=== PATIENT | female | born 1945 | race Caucasian/White ===

== ENCOUNTER 2017-04-06 01:15 | Inpatient (IN) | payer OTHER ==
--- NOTE | 2017-04-06 01:26 | PDOC ---
History of Present Illness - General History Source: Patient Exam Limitations: No Limitations - History of Present Illness Initial Comments: 04/06/17 01:40 The patient is a 71 year old female with significant past medical history of hypertension who presents to the ED with right shoulder and arm pain and swelling s/p mechanical fall 2 weeks ago. Patient reports 2 weeks ago she had generalized weakness and subsequently fell down and sustained pain to the right shoulder. No LOC or head trauma. At that time she was able to move her right arm without difficulty. States she fell again 2 days ago and now she had worsening and increasing pain and swelling to the right shoulder and arm. No LOC or head trauma. Patient also has complaints of recent poor appetite. The patient denies fever, chills, cough, SOB, chest pain, and palpitations. The patient denies abdominal pain, nausea, vomiting, and diarrhea. Allergies: NKDA Social History: No alcohol, tobacco, or drug use reported. Past Surgical History: None reported PCP: Dr. Kerrie Cai <Felicia Oliveira - Last Filed: 04/06/17 03:03> - General History Source: Patient <Eddie Jasmine - Last Filed: 04/06/17 04:55> - General Stated Complaint: FALL Time Seen by Provider: 04/06/17 01:25 Past History <Felicia Oliveira - Last Filed: 04/06/17 03:03> <Eddie Jasmine - Last Filed: 04/06/17 04:55> - Past Medical History Allergies/Adverse Reactions: Allergies Allergy/AdvReac Type Severity Reaction Status Date / Time No Known Allergies Allergy Verified 04/06/17 01:40 Review of Systems - Review of Systems Able to Perform ROS?: Yes Comments:: 04/06/17 01:40 CONSTITUTIONAL: Absent: fever, no chills, no fatigue EYES: Absent: visual changes ENT: Absent: ear pain, no sore throat CARDIOVASCULAR: Absent: chest pain, no palpitations RESPIRATORY: Absent: cough, no SOB GI: Absent: abdominal pain, no nausea, no vomiting, no constipation, no diarrhea GENITOURINARY: Absent: dysuria, no frequency, no hematuria MUSCULOSKELETAL: +right shoulder and arm pain and swelling Absent: back pain SKIN: Absent: rash NEURO: Absent: headache <Felicia Oliveira - Last Filed: 04/06/17 03:03> *Physical Exam - Physical Exam Comments: 04/06/17 01:40 GENERAL: Well-appearing, well-nourished. No apparent distress. HEENT: Normocephalic, atraumatic. PERRL, EOM intact. CARDIOVASCULAR: Normal S1, S2. Regular rate and rhythm. PULMONARY: Clear to auscultation bilaterally. ABDOMEN: Soft, non-distended, non-tender. EXTREMITIES: Limited ROM of right arm secondary to pain. Ecchymotic from the top of the left shoulder down to the end of the humerus, moderate swelling and tenderness, no gross deformity. SKIN: Warm, dry. No rash NEUROLOGICAL: No focal neurological deficits. <Felicia Oliveira - Last Filed: 04/06/17 03:03> ED Treatment Course - LABORATORY CBC & Chemistry Diagram: 04/06/17 01:57 04/06/17 01:57 - RADIOLOGY Radiograph Interpretation: 04/06/17 03:03 EXAM: CT brain without contrast Reviewed by Imaging sporting goods salesperson: FINDINGS: Involutional changes. No hemorrhage. No mass. No visible acute infarct. Osseous structures are intact. <Felicia Oliveira - Last Filed: 04/06/17 03:03> - LABORATORY CBC & Chemistry Diagram: 04/06/17 01:57 04/06/17 01:57 <Eddie Jasmine - Last Filed: 04/06/17 04:55> Medical Decision Making - Medical Decision Making 04/06/17 04:54 Dr. Jasmine: The scribe's documentation has been prepared under my direction and personally reviewed by me in its entirery. I confirm that the note above accurately reflects all work, treatment, procedures, and medical decision making performed by me. Pt sustained a comminuted right humeral fracture. Pt to be admitted for ortho consultation. <Eddie Jasmine - Last Filed: 04/06/17 04:55> *DC/Admit/Observation/Transfer - Attestations Scribe Attestion: 04/06/17 01:41 Documentation prepared by Felicia Oliveira, acting as medical record coder for Eddie Jasmine MD/DO. <Felicia Oliveira - Last Filed: 04/06/17 03:03> - Discharge Dispostion Admit: Yes <Eddie Jasmine - Last Filed: 04/06/17 04:55> Diagnosis at time of Disposition: Elevated transaminase level Closed right humeral fracture Qualifiers: Encounter type: initial encounter Humerus Location: shaft Fracture alignment: displaced - Referrals Referrals: Kerrie Cai MD [Primary Care Provider] -
[2017-04-06] MEDS ORDERED: ONDANSETRON 4 MG/2 ML VIAL IVPUSH STA (01:32)
[2017-04-06] MEDS ORDERED: morphine CARPU-JECT 2 MG/1 ML DISP.SYRIN IVPUSH ONE ×2 (01:32→04:04)
[2017-04-06] MEDS ORDERED: SODIUM CHLORIDE 1,000 ML IV SCH ×2 (01:45→10:38)
[2017-04-06 02:01] VITALS: BMI 38.3
[2017-04-06 02:02] LABS: BASOPHIL 0.5 % (0-2.0); EOSINOPHIL 2.6 % (0-4.5); MCH 35.3 pg (25.7-33.7); MCHC 32.2 g/dl (32.0-36.0); MEAN CELL VOLUME 109.3 fl (80-96); MEAN PLT VOLUME 8.4 fl (7.5-11.1); PLATELET COUNT 167 K/MM3 (134-434); RDW 22.3 % (11.6-15.6); WHITE BLOOD COUNT 13.4 K/mm3 (4.0-10.0)
[2017-04-06 02:13] LABS: INR 1.32 (0.82-1.09); PROTHROMBIN TIME (PATIENT) 14.6 SEC (9.98-11.88)
[2017-04-06 02:30] LABS: ALBUMIN 2.4 g/dl (3.4-5.0); BILIRUBIN,TOTAL 2.5 mg/dL (0.2-1.0); CALCIUM 7.6 mg/dL (8.5-10.1); COCKROFT - GAULT 48.96; CREATININE 1.9 mg/dL (0.55-1.02); TOT PROT 5.8 g/dl (6.4-8.2)
[2017-04-06 02:33] LABS: TROPONIN I 0.06 ng/ml (0.00-0.05)
[2017-04-06] MEDS ORDERED: morphine CARPU-JECT 4 MG/1 ML DISP.SYRIN ONE (04:06)
[2017-04-06] MEDS ORDERED: morphine CARPU-JECT 2 MG/1 ML DISP.SYRIN ONE ×2 (04:06→13:45)
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
[2017-04-06] MEDS: HEPARIN NA (PORCINE) 5,000 UNITS/ML 1ML VIAL SQ SCH ×3 (06:00→21:05)
[2017-04-06] MEDS ORDERED: HEPARIN NA (PORCINE) 5,000 UNITS/ML 1ML VIAL ONE (06:17)
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
[2017-04-06 06:29] LABS: ANISOCYTOSIS 2+
[2017-04-06 08:44] LABS: INR 1.25 (0.82-1.09); PROTHROMBIN TIME (PATIENT) 13.8 SEC (9.98-11.88)
[2017-04-06 08:47] LABS: ACTIVATED PTT 28.3 SECONDS (26.9-34.4)
[2017-04-06] MEDS ORDERED: ALBUTEROL SO4 2.5/IPRATROPIUM 0.5 INH SOL 3 ML VIAL.NEB. NEB PRN (08:50)
[2017-04-06 09:14] LABS: CALCIUM 7.5 mg/dL (8.5-10.1); COCKROFT - GAULT 48.96; CREATININE 1.9 mg/dL (0.55-1.02); MAGNESIUM 2.2 mg/dL (1.8-2.4)
[2017-04-06 09:21] LABS: ALBUMIN 2.7 g/dl (3.4-5.0); BILIRUBIN,DIRECT 1.9 mg/dL (0.0-0.2); BILIRUBIN,TOTAL 2.8 mg/dL (0.2-1.0); TOT PROT 6.4 g/dl (6.4-8.2); TROPONIN I 0.13 ng/ml (0.00-0.05)
[2017-04-06] MEDS ORDERED: CLINDAMYCIN 600MG PREMIX IVPB 50 ML IVPB SCH (10:00)
[2017-04-06] MEDS ORDERED: THIAMINE HCL 200 MG/2 ML VIAL IVPB ONE ×2 (11:45→16:00)
[2017-04-06] MEDS: ACLIDINIUM BROMIDE 400 MCG/INH AERO.POWD IH SCH ×2 (12:27→21:07)
--- NOTE | 2017-04-06 12:32 | CON.ORTH ---
Consult Reason for Consultation:: right humerus fx - Alcohol/Substance Use Hx Alcohol Use: No - Smoking History Smoking history: Never smoked Have you smoked in the past 12 months: No Home Medications - Allergies Allergies/Adverse Reactions: Allergies Allergy/AdvReac Type Severity Reaction Status Date / Time No Known Allergies Allergy Verified 04/06/17 01:40 - Home Medications Home Medications: Ambulatory Orders Enalapril Maleate [Vasotec -] 5 mg PO DAILY 04/06/17 Furosemide [Lasix] 40 mg PO DAILY 04/06/17 Physical Exam for Ortho Vital Signs: Vital Signs Temperature 97.9 F 04/06/17 08:04 Pulse Rate 65 04/06/17 08:04 Respiratory Rate 18 04/06/17 08:04 Blood Pressure 133/66 04/06/17 08:04 O2 Sat by Pulse Oximetry (%) 98 04/06/17 08:04 Labs: CBC, BMP 04/06/17 08:15 INR, PTT INR 1.25 (0.82-1.09) H 04/06/17 08:15 - Upper Extremity Shoulder: Yes: Right, Assymetrical, Ecchymosis, Limited ROM, Pain, Swelling, Tenderness, Other (nvi) Imaging - Results X-ray: Report Reviewed, Image Reviewed Assessment/Plan 71 year old female with pmh HTN, Alcoholic cirrhosis, COPD presented to the ED s/p fall 2 days ago with right arm pain. The patient has multiple falls in the last few weeks. 2 weeks ago patient fell trying to get out bed, she said he bed is high and she fell on her buttocks, there was no injury from that fall. last fall was 2 days ago, while taking a shower in bathtub and injured her right arm , since then she has been having pain with worsening swelling and limited range of motion with redness. She is now unable to lift arm due to pain, but she denies numbness and tingling. a/p- Right humeral shaft fx Risks and benefits were d\w pt in detail Sugar tong splint was applied- pt is NVI Seen in conjunction with Dr. Lindsey and Luis Albertot Will try to treat conservatively in splint will follow
[2017-04-06] MEDS: THIAMINE HCL 100 MG TABLET (FP) PO SCH (12:35)
[2017-04-06] MEDS: MULTIVITAMINS (DAILY MVI) TABLET (FP) PO SCH (12:36)
[2017-04-06] MEDS: FOLIC ACID 1 MG TABLET (FP) PO SCH (12:36)
[2017-04-06] MEDS ORDERED: THIAMINE HCL 200 MG/2 ML VIAL ONE (13:45)
[2017-04-06] MEDS: morphine CARPU-JECT 2 MG/1 ML DISP.SYRIN IVPUSH PRN ×3 (13:48→22:08)
--- NOTE | 2017-04-06 14:42 | EKG ---
Test Reason : Blood Pressure : / mmHG Vent. Rate : 078 BPM Atrial Rate : 078 BPM P-R Int : 152 ms QRS Dur : 090 ms QT Int : 398 ms P-R-T Axes : 028 019 026 degrees QTc Int : 453 ms NORMAL SINUS RHYTHM NORMAL ECG NO PREVIOUS ECGS AVAILABLE Confirmed by ALVINO HU, WASHINGTON ([id number]) on 04/06/2017 2:41:41 PM Referred By: Confirmed By:WASHINGTON DE OLIVEIRA MD
--- NOTE | 2017-04-06 14:43 | PN ---
Physical Exam: SUBJECTIVE: Patient seen and examined at bedside. No new complaints. Patient states she is pain. Denies CP, TEJADA, SOB, abd. pain, N/V. OBJECTIVE: Vital Signs Period Temp Pulse Resp BP Sys/Mccarty Pulse Ox Last 24 Hr 97.6 F-98.1 F 65-80 16-18 120-156/51-81 98-99 GENERAL: AAOx3, lethargic, Mild distress. HEAD: NC/AT. EYES: PERRL, EOMI, sclera anicteric, conjunctiva clear. No ptosis. ENT: moist mucous membranes. NECK: Thick, supple, no jvd LUNGS: CTAB, no wheezes, no crackles, no accessory muscle use. HEART: RRR, S1, S2 normal, No M/G/R ABDOMEN: Soft,obese, NT/ND, BS(+), no guarding, no rebound, no hepatosplenomegaly, no masses. EXTREMITIES: 2+ pulses, warm, well-perfused, no edema. Right arm with severe ecchymosis from shoulder to forearm. Bilateral LE edema 2+, Left leg erythema. NEUROLOGICAL: Cranial nerves II through XII grossly intact. Normal speech, gait not observed. PSYCH: Normal mood, normal affect. Laboratory Results - last 24 hr 04/06/17 04/06/17 04/06/17 08:15 08:15 08:15 INR 1.25 H PTT (Actin FS) 28.3 Sodium 135 L Potassium 4.4 Chloride 94 L Carbon Dioxide 23 Anion Gap 18 H BUN 24 H Creatinine 1.9 H Random Glucose 89 Calcium 7.5 L Magnesium 2.2 Total Bilirubin Direct Bilirubin AST ALT Alkaline Phosphatase Creatine Kinase Troponin I Total Protein Albumin Lipase 357 Alcohol, Quantitative Blood Type A NEGATIVE 04/06/17 04/06/17 08:15 08:15 INR PTT (Actin FS) Sodium Potassium Chloride Carbon Dioxide Anion Gap BUN Creatinine Random Glucose Calcium Magnesium Total Bilirubin 2.8 H Direct Bilirubin 1.9 H AST 94 H ALT 48 Alkaline Phosphatase 161 H Creatine Kinase 353 H Troponin I 0.13 H Total Protein 6.4 Albumin 2.7 L Lipase Alcohol, Quantitative 205.3 H* Blood Type Active Medications Generic Name Dose Route Start Last Admin Trade Name Freq PRN Reason Stop Dose Admin Aclidinium [place] 1 puff 04/06/17 10:00 04/06/17 12:27 Tudorza - IH Not Given BID JACOB Albuterol/Ipratropium 1 amp 04/06/17 08:50 Duoneb - NEB Q4H PRN SHORTNESS OF BREATH Folic Acid 1 mg 04/06/17 10:00 04/06/17 12:36 Folic Acid - PO 1 mg DAILY JACOB Administration Heparin Sodium (Porcine) 5,000 unit 04/06/17 06:00 04/06/17 06:00 Heparin - SQ 5,000 unit TID JACOB Administration Clindamycin Phosphate 50 mls @ 100 mls/hr 04/06/17 10:00 04/06/17 12:36 Cleocin 600 Mg Premix Ivpb - IVPB 100 mls/hr Q8H-IV JACOB Administration Sodium Chloride 1,000 mls @ 100 mls/hr 04/06/17 10:38 Normal Saline - IV ASDIR JACOB Morphine Sulfate 2 mg 04/06/17 04:28 04/06/17 13:48 Morphine Injection - IVPUSH 2 mg Q3H PRN Administration PAIN Multivitamins/Minerals/Vitamin C 1 tab 04/06/17 10:00 04/06/17 12:36 Tab-A-Vit - PO 1 tab DAILY JACOB Administration Thiamine HCl 100 mg 04/06/17 10:00 04/06/17 12:35 Vitamin B1 - PO 100 mg DAILY JACOB Administration ASSESSMENT/PLAN: 71 yo F with PMhx of HTN, COPD, ETOH Liver cirrhosis admitted s/p mechanical fall and fracture of right humerus. Problem List - Problems (1) Closed right humeral fracture Assessment/Plan: * XRAY show comminuted Fx of right humerus. * Seen by ortho - conservative management at this time * Intact neuro and vascular exam. (2) Alcohol abuse Assessment/Plan: * Thiamine and folate supplementation * will monitor for signs of withdrawl. (3) HTN (hypertension) Assessment/Plan: * Amlodipine Besylate/Benazepril 1 PO DAILY * Metoprolol 25mg Daily (4) [id number] kidney injury Assessment/Plan: * continue IVF NS @ 100ml/hr * will check FeNa * Urine lytes and urine Cr. (5) Elevated troponin I level Assessment/Plan: * No ekg abnormalities * Most likely renal source * repeat trending down. (6) High anion gap metabolic acidosis Assessment/Plan: * Possibly 2/2 renal failure * Ketones (-) * repeat CMP in AM (7) Left leg cellulitis Assessment/Plan: * LE duplex US r/o DVT * elevated lactic acid 3.4 * started on Zosyn * Dr. Malhotra consulted. (8) Alcoholic cirrhosis Assessment/Plan: * Will monitor LFT's (9) Macrocytic anemia Assessment/Plan: * check B12 and folate. * Iron studies sent. * R/O hematoma with Upper Ext. US. (10) DVT prophylaxis Assessment/Plan: * SCD's bilat. Visit type - Emergency Visit Emergency Visit: Yes ED Registration Date: 04/06/17 Care time: The patient presented to the Emergency Department on the above date and was hospitalized for further evaluation of their emergent condition. - New Patient This patient is new to me today: Yes Date on this admission: 04/06/17 - Critical Care Critical Care patient: No - Discharge Referral Referred to [facility] Med [facility] No
--- NOTE | 2017-04-06 15:23 | PN ---
Teaching Attending Note Name of Resident: Mohan Mccartney ATTENDING PHYSICIAN STATEMENT I saw and evaluated the patient. I reviewed the resident's note and discussed the case with the resident. I agree with the resident's findings and plan as documented. SUBJECTIVE: no fever or chills, no abd pain , no Cp now or at home. reports taking 1 mg of ativan TID for anxiety . denies abd pain , reports new swelling of LLE , was on lasix before , but not now denies renal dz . OBJECTIVE: NAD Awake ,and alert , cooperative . MMM, no JVD, symmetric face. dry axilla CV: RRR, Lungs : CTAB , decreased breath sounds at bases Ext: L LE pitting edema and erythema. old surgical scars on L foot minimal edema on R LE . no erythema . DP 2+ b/l RUE in a sling, with bruising of the R shoulder and upper arm . RP 2+ b/l , nl sensation to light touch in hand and nl movement of her fingers . ASSESSMENT AND PLAN: 71 y/o lady with h/o Liver cirrhosis , alcoholism, COPD who presented after a fall with R UE pain, and was found to have R humerous Fx . 1- Acute comminuted Fx of the RUE: s/p mechanical fall. no Syncope intact neuro vascular exam. significant bruising but no hematoma . - no surgical plans per ortho. - monitor neuro vascular exam of RUE.. 2- ETOH abuse : no evidence of withdrawal. did not get IV thiamine in ER. - monitor for withdrawal sx - give IV thiamine to avoid Wernicke's after po intake 3- Elevated cr, not clear if PAULA or CKD. She denies CKD history. although she has LE edema , she might be intravascularly depleted, with no axillary sweating , and decreased po intake ( per her ) - try gentle hydration , pending confirmation of her renal function base line . will reach PCP. ( has cirrhosis and ascitis , careful to avoid hepato renal sx ) - check urine electrolytes to calculate FeNA . - if CKD , will dc IVF 4- LL edema , although has edema and erythema , I do not suspect cellulitis . Leukocytosis is mild and might be reactive . - hold Abx . - monitor fro fever - UA , pending 5- elevated trop : unlikely significant ( due to renal failure ) , no cp or SOB. has no ischemic EKG changes. - trend . if significant elevation , will consult card 6- Macrocytic anemia : likely chronic due to alcohol use . - check B12 , folate - check iron studies - order RUE soft tissue USS to r/o hematoma with all this bruising on exam. 7- elevated AG and possible metabolic acidosis : unclear etiology. could be due to renal failure . Bicarb has normalized , but AG is still elevated. suspect starvation/alcoholic ketoacidosis . - check Ketones - IVF - repeat BMP. - DKA is not suspected in this lady 9- LIver cirrhosis , with ascitis . can explain elevated LFTS . monitor 10- SCDS . Heparin sq if no hematoma in RUE
[2017-04-06] MEDS: SODIUM CHLORIDE 1,000 ML IV SCH (15:24)
[2017-04-06 16:09] LABS: TROPONIN I 0.09 ng/ml (0.00-0.05)
[2017-04-06] MEDS ORDERED: PIPERACILLIN/TAZOB 3.375 GM 50 ML IVPB ONE (16:22)
[2017-04-06 16:43] LABS: CALCIUM 7.9 mg/dL (8.5-10.1); COCKROFT - GAULT 46.495
[2017-04-06 16:45] LABS: ARTERIAL BLD GAS O2 SATURATION 93.6 % (90-98.9); ARTERIAL BLOOD GAS BASE EXCESS -0.9 meq/l (-2-2); ARTERIAL BLOOD GAS HCO3 23.5 meq/L (22-26); ARTERIAL BLOOD GAS PO2 74.3 mmHg (80-100); ARTERIAL BLOOD GAS pH 7.38 (7.35-7.45)
[2017-04-06 16:46] LABS: ALLENS TEST POSITIVE; ART PUNCT SITE LEFT RADIAL; LPM/O2% 21%; PT. ON O2? NO; TYPE OF O2 ROOM AIR
[2017-04-06 18:23] LABS: FERRITIN 361.704 ng/ml (6.9-282.5)
[2017-04-06 20:53] LABS: URINE APPEARANCE CLEAR; URINE BILIRUBIN NEGATIVE (NEGATIVE); URINE COLOR YELLOW; URINE GLUCOSE (UA) NEGATIVE (NEGATIVE); URINE KETONE NEGATIVE (NEGATIVE); URINE LEUK ESTERASE NEGATIVE (NEGATIVE); URINE NITRITE NEGATIVE (NEGATIVE); URINE PROTEIN NEGATIVE (NEGATIVE); URINE UROBILINOGEN NEGATIVE E.U./dl (0.2-1.0)
[2017-04-06] MEDS: LORazepam 0.5 MG TABLET PO SCH (21:05)
[2017-04-06] MEDS: ZOLPIDEM TARTRATE 5 MG TABLET PO PRN (21:05)
[2017-04-06 21:17] LABS: URINE BLOOD 1+ (NEGATIVE)
[2017-04-06 21:19] LABS: GRANULAR CASTS 6 /lpf; URINE BACTERIA RARE /hpf (NONE SEEN); URINE HYALINE CAST 8 /lpf; URINE RBC <1 /hpf (0-3); URINE WBC 4 /hpf (3-5)
[2017-04-06 22:37] LABS: CHLORIDE,RANDOM URINE < 10 MMOL/L; SODIUM,RANDOM URINE 8 MMOL/L
[2017-04-07] MEDS: morphine CARPU-JECT 2 MG/1 ML DISP.SYRIN IVPUSH PRN ×4 (01:21→15:04)
[2017-04-07] MEDS: PIPERACILLIN/TAZOB 2.25 GM 50 ML IVPB SCH ×2 (01:31→09:38)
[2017-04-07] MEDS: LORazepam 0.5 MG TABLET PO SCH (05:19)
[2017-04-07] MEDS: HEPARIN NA (PORCINE) 5,000 UNITS/ML 1ML VIAL SQ SCH ×3 (05:19→21:21)
[2017-04-07] MEDS ORDERED: diphenhydrAMINE HCL 25 MG CAPSULE (FP) PO ONE (05:35)
[2017-04-07] MEDS: SODIUM CHLORIDE 1,000 ML IV SCH ×2 (06:21→21:22)
[2017-04-07 08:17] LABS: ALBUMIN 2.3 g/dl (3.4-5.0); CALCIUM 7.7 mg/dL (8.5-10.1); COCKROFT - GAULT 48.96; CREATININE 1.9 mg/dL (0.55-1.02); TOT PROT 5.5 g/dl (6.4-8.2)
[2017-04-07] MEDS: THIAMINE HCL 100 MG TABLET (FP) PO SCH (09:40)
[2017-04-07] MEDS: CITALOPRAM HYDROBROMIDE 20 MG TABLET (FP) PO SCH (09:40)
[2017-04-07] MEDS: MULTIVITAMINS (DAILY MVI) TABLET (FP) PO SCH (09:40)
[2017-04-07] MEDS: LISINOPRIL 10 MG TABLET (FP) PO SCH (09:41)
[2017-04-07] MEDS: ACLIDINIUM BROMIDE 400 MCG/INH AERO.POWD IH SCH ×2 (09:41→21:22)
[2017-04-07] MEDS: FOLIC ACID 1 MG TABLET (FP) PO SCH (09:41)
[2017-04-07] MEDS: METOPROLOL SUCCINATE 25 MG TAB.SR.24H (FP) PO SCH (09:41)
[2017-04-07] MEDS: amLODIPine BESYLATE 2.5 MG TABLET (FP) PO SCH (09:41)
--- NOTE | 2017-04-07 10:25 | PN ---
Progress Note (short form) - Note Progress Note: Pt seen, c/o mild-mod pain right upper arm. In shoulder sugar tong RUE grossly NVI NTD from an orthopedic pov Can DC/transfer from an ortho pov and f/u with orthopedics as an out pt in 7-14 days She is not a good surgical candidate
[2017-04-07 11:44] LABS: BASOPHIL 1.2 % (0-2.0); EOSINOPHIL 2.3 % (0-4.5); MCH 37.9 pg (25.7-33.7); MCHC 33.7 g/dl (32.0-36.0); MEAN CELL VOLUME 112.3 fl (80-96); MEAN PLT VOLUME 8.4 fl (7.5-11.1); NEUTROPHILS 54.3 % (42.8-82.8); PLATELET COUNT 100 K/MM3 (134-434); RDW 22.4 % (11.6-15.6); WHITE BLOOD COUNT 6.8 K/mm3 (4.0-10.0)
[2017-04-07] MEDS ORDERED: chlordiazePOXIDE HCL 25 MG CAPSULE PO PRN (12:00)
--- NOTE | 2017-04-07 12:04 | CONSULT ---
Consult Detox [facility] Reason for Current Admission/Consult: Alcohol withdrawal sx. Referred by:: Estevan Walls Res - History History of Present Illness: 71 y/o woman comes to ED because of severe pain right arm. X-ray reveals fracture of right humerus.Pt. reports that she fell two days prior to admission. On admission her BAL was 205.3 - History Source History Provided By: Patient, Medical Record Limitations to Obtaining History: No Limitations - Alcohol/Substance Use Hx Alcohol Use: Yes - Current Drug/Alcohol Use Alcohol Route: Oral Frequency: Daily Amount used: wine about 1 bottle Date of Last Use: 04/06/17 - Past Medical History ...: No - Significant Medical Findings: Laboratory Last Values WBC 6.8 K/mm3 (4.0-10.0) D 04/07/17 06:10 RBC 2.04 M/mm3 (3.60-5.2) L 04/07/17 06:10 Hgb 7.7 GM/dL (10.7-15.3) L D 04/07/17 06:10 Hct 23.0 % (32.4-45.2) L D 04/07/17 06:10 MCV 112.3 fl (80-96) H 04/07/17 06:10 MCHC 33.7 g/dl (32.0-36.0) 04/07/17 06:10 RDW 22.4 % (11.6-15.6) H 04/07/17 06:10 Plt Count 100 K/MM3 (134-434) L D 04/07/17 06:10 MPV 8.4 fl (7.5-11.1) 04/07/17 06:10 Neutrophils % 54.3 % (42.8-82.8) 04/07/17 06:10 Lymphocytes % 27.2 % (8-40) 04/07/17 06:10 Monocytes % 15.0 % (3.8-10.2) H 04/07/17 06:10 Eosinophils % 2.3 % (0-4.5) 04/07/17 06:10 Basophils % 1.2 % (0-2.0) 04/07/17 06:10 Anisocytosis 2+ 04/06/17 01:57 Macrocytosis 2+ 04/06/17 01:57 INR 1.25 (0.82-1.09) H 04/06/17 08:15 PTT (Actin FS) 28.3 SECONDS (26.9-34.4) 04/06/17 08:15 Puncture Site Left radial 04/06/17 16:35 ABG pH 7.38 (7.35-7.45) 04/06/17 16:35 ABG pCO2 at Pt Temp 40.4 mmHg (35-45) 04/06/17 16:35 ABG pO2 at Pt Temp 74.3 mmHg (80-100) L 04/06/17 16:35 ABG HCO3 23.5 meq/L (22-26) 04/06/17 16:35 ABG O2 Sat (Measured) 93.6 % (90-98.9) 04/06/17 16:35 ABG O2 Content 11.7 % vol (15-22) L 04/06/17 16:35 ABG Base Excess -0.9 meq/l (-2-2) 04/06/17 16:35 Marty Test Positive 04/06/17 16:35 O2 Delivery Device Room air 04/06/17 16:35 Oxygen Flow Rate 21% 04/06/17 16:35 PEEP 0.0 cmH2O 04/06/17 16:35 Sodium 137 mmol/L (136-145) 04/07/17 06:10 Potassium 4.3 mmol/L (3.5-5.1) 04/07/17 06:10 Chloride 97 mmol/L (98-107) L 04/07/17 06:10 Carbon Dioxide 26 mmol/L (21-32) 04/07/17 06:10 Anion Gap 14 (8-16) 04/07/17 06:10 BUN 28 mg/dL (7-18) H 04/07/17 06:10 Creatinine 1.9 mg/dL (0.55-1.02) H 04/07/17 06:10 Creat Clearance w eGFR 26.21 (>60) 04/07/17 06:10 Random Glucose 111 mg/dL (74-106) H D 04/07/17 06:10 Lactic Acid 1.708 mmol/L (0.4-2.0) 04/07/17 08:26 Calcium 7.7 mg/dL (8.5-10.1) L 04/07/17 06:10 Magnesium 2.2 mg/dL (1.8-2.4) 04/06/17 08:15 Ferritin 361.704 ng/ml (6.9-282.5) H 04/06/17 08:00 Total Bilirubin 3.0 mg/dL (0.2-1.0) H 04/07/17 06:10 Direct Bilirubin 1.9 mg/dL (0.0-0.2) H 04/06/17 08:15 AST 100 U/L (15-37) H 04/07/17 06:10 ALT 41 U/L (12-78) 04/07/17 06:10 Alkaline Phosphatase 143 U/L (45-117) H 04/07/17 06:10 Creatine Kinase 472 IU/L (26-192) H D 04/06/17 15:16 Creatine Kinase Index 1.9 % (0.0-5.0) 04/06/17 15:16 CK-MB (CK-2) 8.742 ng/ml (0.5-3.6) H 04/06/17 15:16 Troponin I 0.09 ng/ml (0.00-0.05) H 04/06/17 15:16 B-Natriuretic Peptide 495.55 pg/ml (5-125) H 04/06/17 01:57 Total Protein 5.5 g/dl (6.4-8.2) L 04/07/17 06:10 Albumin 2.3 g/dl (3.4-5.0) L 04/07/17 06:10 Lipase 357 U/L (73-393) 04/06/17 08:15 Vitamin B12 1367 pg/ml (180-914) H 04/06/17 08:00 Serum Folate 7 ng/ml (3.1-17.5) 04/06/17 15:28 Urine Color Yellow 04/06/17 19:00 Urine Appearance Clear 04/06/17 19:00 Urine pH 5.0 (5.0-8.0) 04/06/17 19:00 Ur Specific [place] 1.010 (1.005-1.025) 04/06/17 19:00 Urine Protein Negative (NEGATIVE) 04/06/17 19:00 Urine Glucose (UA) Negative (NEGATIVE) 04/06/17 19:00 Urine Ketones Negative (NEGATIVE) 04/06/17 19:00 Urine Blood 1+ (NEGATIVE) H 04/06/17 19:00 Urine Nitrite Negative (NEGATIVE) 04/06/17 19:00 Urine Bilirubin Negative (NEGATIVE) 04/06/17 19:00 Urine Acetone Cancelled 04/06/17 14:30 Urine Urobilinogen Negative E.U./dl (0.2-1.0) 04/06/17 19:00 Ur Leukocyte Esterase Negative (NEGATIVE) 04/06/17 19:00 Urine RBC <1 /hpf (0-3) 04/06/17 19:00 Urine WBC 4 /hpf (3-5) 04/06/17 19:00 Ur Epithelial Cells Rare /hpf (FEW) 04/06/17 19:00 Urine Bacteria Rare /hpf (NONE SEEN) 04/06/17 19:00 Hyaline Casts 8 /lpf 04/06/17 19:00 Granular Casts 6 /lpf 04/06/17 19:00 Ur Random Sodium 8 MMOL/L 04/06/17 19:00 Ur Random Potassium 45.9 MMOL/L 04/06/17 19:00 Ur Random Chloride < 10 MMOL/L 04/06/17 19:00 Urine Creatinine 121.0 mg/dL (20-320) 04/06/17 19:00 Alcohol, Quantitative 205.3 mg/dl (0-5) H* 04/06/17 08:15 Acetone, Qual Negative (NEGATIVE) L 04/06/17 14:30 Blood Type A NEGATIVE 04/06/17 08:15 Antibody Screen Negative 04/06/17 01:57 labs noted CIWA Score - CIWA Score Nausea/Vomitin-Mild Nausea/No Vomiting Muscle Tremors: 4-Moderate,w/Arms Extend Anxiety: 4-Mod. Anxious/Guarded Agitation: 4-Moderately Restless Paroxysmal Sweats: 3 Orientation: 0-Oriented Tacttile Disturbances: 0-None Auditory Disturbances: 0-None Visual Disturbances: 0-None Headache: 0-None Present CIWA-Ar Total Score: 16 Assessment Plan - Diagnosis (1) Alcohol dependence with uncomplicated withdrawal Status: Chronic - Plan Plan: I advise pt. to attend IOP upon discharge. - Medication Detox Regimen/Protocol: Librium
[2017-04-07] MEDS ORDERED: chlordiazePOXIDE HCL 25 MG CAPSULE PO ONE (13:15)
--- NOTE | 2017-04-07 13:34 | CONSULT ---
Consult Consult Specialty:: infectious diseases Reason for Consultation:: cellulitits of the left leg - History of Present Illness History of Present Illness: 71 year old female with pmh HTN, Alcoholic cirrhosis, COPD presented to the ED s/p fall 2 days ago with right arm pain. The patient has multiple falls in the last few weeks. 2 weeks ago patient fell trying to get out bed, she said he bed is high and she fell on her buttocks, there was no injury from that fall. last fall was 2 days ago, while taking a shower in bathtub and injured her right arm , since then she has been having pain with worsening swelling and limited range of motion with redness. patient is a poor historian and most of the hisotry taken from charts. according tot he aptient she waited 2 days before coming to the the hospital.Her daughter is in the room and she does not know what exactly happened ,but mentions that she has lot of issues and has alcohol problem and other issues patient has seen by ortho for the hand and patients hand is in semi cast and not other intervention by ortho - History Source History Provided By: Patient, Family Member Limitations to Obtaining History: Poor Historian - Past Medical History ...: No - Alcohol/Substance Use Hx Alcohol Use: Yes - Smoking History Smoking history: Never smoked Have you smoked in the past 12 months: No Home Medications - Allergies Allergies/Adverse Reactions: Allergies Allergy/AdvReac Type Severity Reaction Status Date / Time No Known Allergies Allergy Verified 04/06/17 01:40 - Home Medications Home Medications: Ambulatory Orders Amlodipine Besylate/Benazepril [Lotrel 2.5-10 mg Capsule] 1 PO DAILY 04/06/17 Citalopram Hydrobromide [Celexa -] 40 mg PO DAILY 04/06/17 Furosemide [Lasix] 40 mg PO DAILY 04/06/17 Lorazepam 1 mg PO TID 04/06/17 Metoprolol Succinate [Toprol XL -] 25 mg PO DAILY 04/06/17 Zolpidem Tartrate 10 mg PO HS 04/06/17 Review of Systems - Review of Systems Constitutional: reports: Other Eyes: reports: No Symptoms HENT: reports: No Symptoms Neck: reports: No Symptoms Cardiovascular: reports: No Symptoms Respiratory: reports: No Symptoms Gastrointestinal: reports: No Symptoms Musculoskeletal: reports: Extremity Pain, Joint Pain, Muscle Pain Integumentary: reports: Erythema Neurological: reports: No Symptoms Endocrine: reports: No Symptoms Hematology/Lymphatic: reports: No Symptoms Psychiatric: reports: No Symptoms Physical Exam Vital Signs: Vital Signs Temperature 99.2 F 04/07/17 05:44 Pulse Rate 94 H 04/07/17 05:44 Respiratory Rate 20 04/07/17 05:44 Blood Pressure 155/60 04/07/17 05:44 O2 Sat by Pulse Oximetry (%) 96 04/06/17 21:00 Constitutional: Yes: Well Nourished, Mild Distress, Obese Eyes: Yes: Conjunctiva Clear HENT: Yes: Atraumatic Neck: Yes: Supple Cardiovascular: Yes: Regular Rate and Rhythm Respiratory: Yes: Regular, CTA Bilaterally Gastrointestinal: Yes: Normal Bowel Sounds, Soft Musculoskeletal: Yes: Other (rt ext in semi soft cast) Extremities: Yes: Other (rt upper ext in cast left lower ext swollen and erythema present) Edema: LLE: 2+ Integumentary: Yes: Erythema, Other Neurological: Yes: Alert, Oriented Psychiatric: Yes: Alert, Oriented Labs: CBC, BMP 04/07/17 06:10 04/07/17 06:10 Imaging - Results Chest X-ray: Report Reviewed, Image Reviewed Cat Scan: Report Reviewed, Image Reviewed Ultrasound: Report Reviewed, Image Reviewed Assessment/Plan 71 year old female with pmh HTN, Alcoholic cirrhosis, COPD presented to the ED s/p fall 2 days ago with right arm pain. Pt was found to have right humeral displaced fracture midshaft and proximally. Right humeral fracture Acute renal failure Alcoholic liver cirrhosis Alcohol abuse Macrocytic Anemia Leukocytosis Anasarca B/l lower ext swelling r/o DVT, Cellulitis Elevated cardiac profile HTN COPD plan will change abx to ceftriaxone await for all results to be back rest ct as per primary
--- NOTE | 2017-04-07 15:13 | PN ---
Teaching Attending Note Name of Resident: Mohan Mccartney ATTENDING PHYSICIAN STATEMENT I saw and evaluated the patient. I reviewed the resident's note and discussed the case with the resident. I agree with the resident's findings and plan as documented. SUBJECTIVE: no fever or chills,, cont to have pain in RUE and itching in feet OBJECTIVE: NAD Awake ,and alert , cooperative . MMM, no JVD, symmetric face. CV: RRR, Lungs : CTAB , decreased breath sounds at bases Ext: L LE pitting edema . erythema on medial leg and thigh ( improved ) . old surgical scars on L foot minimal edema on R LE . no erythema . DP 2+ b/l RUE in a sling, with bruising of the R shoulder and upper arm . RP 2+ b/l , nl sensation to light touch in hand and nl movement of her fingers . ASSESSMENT AND PLAN: 71 y/o lady with h/o Liver cirrhosis , alcoholism, COPD who presented after a fall with R UE pain, and was found to have R humerous Fx . 1- Acute comminuted Fx of the RUE: s/p mechanical fall. intact neuro vascular exam. - Cont sling, f/u with ortho as out pt - monitor neuro vascular exam of RUE.. 2- ETOH abuse : no evidence of withdrawal. - started on librium protocol. 3- PAULA, base line Cr 1.1 .probably has CKD as she follows with renal as out pt - prerenal in etiology, as FeNA < 1% - cont gentle hydration 4- LLE cellulitis: day 2 of Abx cont ceftriaxone lactic acidosis resolved 5- Elevated trop :due to renal failure . no suspicion for ischemia 6- Macrocytic Anemia: likely chronic due to alcohol use . - B12 , folate nl - iron studies pending 7- Liver cirrhosis, with ascitis . can explain elevated LFTS . monitor 8- SCDS . Heparin sq HLOC.
[2017-04-07] MEDS: CEFTRIAXONE 50 ML IVPB SCH (15:16)
--- NOTE | 2017-04-07 15:42 | PN ---
Physical Exam: SUBJECTIVE: Patient seen and examined at bedside. No overnight events. No new complaints. Continues to have significant arm pain. Denies CP,TEJADA, SOB, abd. pain , palpitations, N/V. OBJECTIVE: Vital Signs Period Temp Pulse Resp BP Sys/Mccarty Pulse Ox Last 24 Hr 98.0 F-99.2 F 74-94 18-20 138-155/60-72 96 GENERAL: AAOx3, NAD HEAD: NC/AT EYES: PERRL, EOMI, sclera anicteric, conjunctiva clear. No ptosis. ENT: dry mucous membranes. NECK: supple, No JVD LUNGS:CTAB , no wheezes, no crackles, no accessory muscle use. HEART: RRR, S1, S2 without murmur, rub or gallop. ABDOMEN: Soft, nontender, nondistended, normoactive bowel sounds, no guarding, no rebound, no hepatosplenomegaly, no masses. EXTREMITIES: RUE in shoulder sugar tong, Diffuse echymoses of Right shoulder and arm. 2+ radial pulses bilat., warm, well-perfused. able to move fingers of right hand and feels light touch. No signs of neurovascular compromise. Bilateral LE 2+ edema. NEUROLOGICAL: Cranial nerves II through XII grossly intact. Normal speech, gait not observed. PSYCH: Normal mood, normal affect. SKIN: LLE edema and erythema have improved. Laboratory Results - last 24 hr 04/06/17 04/06/17 04/06/17 08:00 14:30 14:30 WBC RBC Hgb Hct MCV MCHC RDW Plt Count MPV Neutrophils % Lymphocytes % Monocytes % Eosinophils % Basophils % Puncture Site ABG pH ABG pCO2 at Pt Temp ABG pO2 at Pt Temp ABG HCO3 ABG O2 Sat (Measured) ABG O2 Content ABG Base Excess Marty Test O2 Delivery Device Oxygen Flow Rate PEEP Sodium Potassium Chloride Carbon Dioxide Anion Gap BUN Creatinine Creat Clearance w eGFR Random Glucose Lactic Acid 3.408 H* Calcium Ferritin 361.704 H Total Bilirubin AST ALT Alkaline Phosphatase Creatine Kinase Creatine Kinase Index CK-MB (CK-2) Troponin I Total Protein Albumin Vitamin B12 1367 H Serum Folate Urine Color Urine Appearance Urine pH Ur Specific [place] Urine Protein Urine Glucose (UA) Urine Ketones Urine Blood Urine Nitrite Urine Bilirubin Urine Acetone Cancelled Urine Urobilinogen Ur Leukocyte Esterase Urine RBC Urine WBC Ur Epithelial Cells Urine Bacteria Hyaline Casts Granular Casts Ur Random Sodium Ur Random Potassium Ur Random Chloride Urine Creatinine Acetone, Qual Negative L 04/06/17 04/06/17 04/06/17 15:16 15:28 16:35 WBC RBC Hgb Hct MCV MCHC RDW Plt Count MPV Neutrophils % Lymphocytes % Monocytes % Eosinophils % Basophils % Puncture Site Left radial ABG pH 7.38 ABG pCO2 at Pt Temp 40.4 ABG pO2 at Pt Temp 74.3 L ABG HCO3 23.5 ABG O2 Sat (Measured) 93.6 ABG O2 Content 11.7 L ABG Base Excess -0.9 Marty Test Positive O2 Delivery Device Room air Oxygen Flow Rate 21% PEEP 0.0 Sodium 135 L Potassium 4.5 Chloride 93 L Carbon Dioxide 25 Anion Gap 17 H BUN 26 H Creatinine 2.0 H Creat Clearance w eGFR Random Glucose 84 Lactic Acid Calcium 7.9 L Ferritin Total Bilirubin AST ALT Alkaline Phosphatase Creatine Kinase 472 H D Creatine Kinase Index 1.9 CK-MB (CK-2) 8.742 H Troponin I 0.09 H Total Protein Albumin Vitamin B12 Serum Folate 7 Urine Color Urine Appearance Urine pH Ur Specific [place] Urine Protein Urine Glucose (UA) Urine Ketones Urine Blood Urine Nitrite Urine Bilirubin Urine Acetone Urine Urobilinogen Ur Leukocyte Esterase Urine RBC Urine WBC Ur Epithelial Cells Urine Bacteria Hyaline Casts Granular Casts Ur Random Sodium Ur Random Potassium Ur Random Chloride Urine Creatinine Acetone, Qual 04/06/17 04/06/17 04/06/17 19:00 19:00 19:00 WBC RBC Hgb Hct MCV MCHC RDW Plt Count MPV Neutrophils % Lymphocytes % Monocytes % Eosinophils % Basophils % Puncture Site ABG pH ABG pCO2 at Pt Temp ABG pO2 at Pt Temp ABG HCO3 ABG O2 Sat (Measured) ABG O2 Content ABG Base Excess Marty Test O2 Delivery Device Oxygen Flow Rate PEEP Sodium Potassium Chloride Carbon Dioxide Anion Gap BUN Creatinine Creat Clearance w eGFR Random Glucose Lactic Acid Calcium Ferritin Total Bilirubin AST ALT Alkaline Phosphatase Creatine Kinase Creatine Kinase Index CK-MB (CK-2) Troponin I Total Protein Albumin Vitamin B12 Serum Folate Urine Color Yellow Urine Appearance Clear Urine pH 5.0 Ur Specific [place] 1.010 Urine Protein Negative Urine Glucose (UA) Negative Urine Ketones Negative Urine Blood 1+ H Urine Nitrite Negative Urine Bilirubin Negative Urine Acetone Urine Urobilinogen Negative Ur Leukocyte Esterase Negative Urine RBC <1 Urine WBC 4 Ur Epithelial Cells Rare Urine Bacteria Rare Hyaline Casts 8 Granular Casts 6 Ur Random Sodium 8 Ur Random Potassium 45.9 Ur Random Chloride < 10 Urine Creatinine 121.0 Acetone, Qual 04/07/17 04/07/17 04/07/17 06:10 06:10 08:26 WBC 6.8 D RBC 2.04 L Hgb 7.7 L D Hct 23.0 L D MCV 112.3 H MCHC 33.7 RDW 22.4 H Plt Count 100 L D MPV 8.4 Neutrophils % 54.3 Lymphocytes % 27.2 Monocytes % 15.0 H Eosinophils % 2.3 Basophils % 1.2 Puncture Site ABG pH ABG pCO2 at Pt Temp ABG pO2 at Pt Temp ABG HCO3 ABG O2 Sat (Measured) ABG O2 Content ABG Base Excess Marty Test O2 Delivery Device Oxygen Flow Rate PEEP Sodium 137 Potassium 4.3 Chloride 97 L Carbon Dioxide 26 Anion Gap 14 BUN 28 H Creatinine 1.9 H Creat Clearance w eGFR 26.21 Random Glucose 111 H D Lactic Acid 1.708 Calcium 7.7 L Ferritin Total Bilirubin 3.0 H AST 100 H ALT 41 Alkaline Phosphatase 143 H Creatine Kinase Creatine Kinase Index CK-MB (CK-2) Troponin I Total Protein 5.5 L Albumin 2.3 L Vitamin B12 Serum Folate Urine Color Urine Appearance Urine pH Ur Specific [place] Urine Protein Urine Glucose (UA) Urine Ketones Urine Blood Urine Nitrite Urine Bilirubin Urine Acetone Urine Urobilinogen Ur Leukocyte Esterase Urine RBC Urine WBC Ur Epithelial Cells Urine Bacteria Hyaline Casts Granular Casts Ur Random Sodium Ur Random Potassium Ur Random Chloride Urine Creatinine Acetone, Qual Active Medications Generic Name Dose Route Start Last Admin Trade Name Shankarq PRN Reason Stop Dose Admin Aclidinium [place] 1 puff 04/06/17 10:00 04/07/17 09:41 Tudorza - IH 1 puff BID JACOB Administration Albuterol/Ipratropium 1 amp 04/06/17 08:50 Duoneb - NEB Q4H PRN SHORTNESS OF BREATH Amlodipine Besylate 2.5 mg 04/07/17 10:00 04/07/17 09:41 Norvasc - PO 2.5 mg DAILY JACOB Administration Chlordiazepoxide HCl 25 mg 04/07/17 12:00 Librium - PO 04/10/17 11:59 Q4H PRN WITHDRAWAL(CONT SUBST) Chlordiazepoxide HCl 50 mg 04/07/17 17:00 Librium - PO 04/08/17 11:01 [id number] JACOB Chlordiazepoxide HCl 25 mg 04/08/17 17:00 Librium - PO 04/09/17 11:01 [id number] JACOB Chlordiazepoxide HCl 15 mg 04/09/17 17:00 Librium - PO 04/10/17 11:01 [id number] JACOB Citalopram Hydrobromide 40 mg 04/07/17 10:00 04/07/17 09:40 Celexa - PO 40 mg DAILY JACOB Administration Folic Acid 1 mg 04/06/17 10:00 04/07/17 09:41 Folic Acid - PO 1 mg DAILY JACOB Administration Heparin Sodium (Porcine) 5,000 unit 04/06/17 06:00 04/07/17 15:07 Heparin - SQ 5,000 unit TID JACOB Administration Sodium Chloride 1,000 mls @ 75 mls/hr 04/06/17 15:04 04/07/17 06:21 Normal Saline - IV 75 mls/hr ASDIR JACOB Administration Ceftriaxone Sodium 50 mls @ 100 mls/hr 04/07/17 14:00 04/07/17 15:16 Rocephin 1gm Ivpb (Pre-Docked) IVPB 100 mls/hr DAILY JACOB Administration Lisinopril 10 mg 04/07/17 10:00 04/07/17 09:41 Prinivil PO 10 mg DAILY JACOB Administration Metoprolol Succinate 25 mg 04/07/17 10:00 04/07/17 09:41 Toprol Xl - PO 25 mg DAILY JACOB Administration Morphine Sulfate 2 mg 04/06/17 04:28 04/07/17 15:04 Morphine Injection - IVPUSH 2 mg Q3H PRN Administration PAIN Multivitamins/Minerals/Vitamin C 1 tab 04/06/17 10:00 04/07/17 09:40 Tab-A-Vit - PO 1 tab DAILY JACOB Administration Thiamine HCl 100 mg 04/06/17 10:00 04/07/17 09:40 Vitamin B1 - PO 100 mg DAILY JACOB Administration Zolpidem Tartrate 5 mg 04/06/17 18:08 04/06/17 21:05 Ambien - PO 5 mg HS PRN Administration INSOMNIA ASSESSMENT/PLAN: Problem List - Problems (1) Closed right humeral fracture Assessment/Plan: * XRAY show comminuted Fx of right humerus. * Seen by ortho - conservative management at this time * Intact neuro and vascular exam. * Not a good surgical candidate. * Ortho has signed off. (2) Alcohol abuse Assessment/Plan: * Thiamine and folate supplementation * will monitor for signs of withdrawl. * On librium detox protocol (3) HTN (hypertension) Assessment/Plan: * Amlodipine 2.5 mg po daily * lisinopril 10mg PO daily * Metoprolol 25mg Daily (4) [place]-cl-kizbypq kidney injury Assessment/Plan: * continue IVF NS @ 100ml/hr * FeNa= 0.09 ; <1 most like pre-renal due to volume depletion . (5) Elevated troponin I level Assessment/Plan: * No ekg abnormalities * Most likely renal source (6) High anion gap metabolic acidosis Assessment/Plan: * resolved with fluid administration. * Possibly 2/2 renal failure * Ketones (-) * repeat CMP in AM (7) Left leg cellulitis Assessment/Plan: * LE duplex (-) for DVT * felt to be most likely traumatic * switched to Ceftriaxone 1gmIV daily. (8) Alcoholic cirrhosis Assessment/Plan: * Will monitor LFT's (9) Macrocytic anemia Assessment/Plan: * B12 and folate found to be in normal range. * Iron studies pending. (10) DVT prophylaxis Assessment/Plan: * SCD's bilat. Visit type - Emergency Visit Emergency Visit: Yes ED Registration Date: 04/06/17 Care time: The patient presented to the Emergency Department on the above date and was hospitalized for further evaluation of their emergent condition. - New Patient This patient is new to me today: No - Critical Care Critical Care patient: No
[2017-04-07] MEDS: chlordiazePOXIDE HCL 25 MG CAPSULE PO SCH ×2 (18:19→22:34)
[2017-04-07] MEDS ORDERED: PT OWN MED DRAWER 7, Y5N ONE (21:20)
[2017-04-08] MEDS: ZOLPIDEM TARTRATE 5 MG TABLET PO PRN (00:35)
[2017-04-08] MEDS: morphine CARPU-JECT 2 MG/1 ML DISP.SYRIN IVPUSH PRN ×5 (01:06→21:34)
[2017-04-08] MEDS: HEPARIN NA (PORCINE) 5,000 UNITS/ML 1ML VIAL SQ SCH (06:00)
[2017-04-08] MEDS: chlordiazePOXIDE HCL 25 MG CAPSULE PO SCH ×4 (06:00→22:51)
[2017-04-08] MEDS: SODIUM CHLORIDE 1,000 ML IV SCH ×3 (06:01→16:11)
[2017-04-08 06:06] LABS: SERUM IRON 139 ug/dL (27-139); TOTAL IRON BINDING CAPACITY 219 ug/dL (250-450); UIBC 80 ug/dL (118-369)
[2017-04-08 07:30] LABS: BASOPHIL 1.1 % (0-2.0); EOSINOPHIL 5.7 % (0-4.5); MCH 38.6 pg (25.7-33.7); MEAN CELL VOLUME 113.4 fl (80-96); MEAN PLT VOLUME 8.3 fl (7.5-11.1); NEUTROPHILS 50.3 % (42.8-82.8); PLATELET COUNT 84 K/MM3 (134-434); RDW 22.8 % (11.6-15.6); WHITE BLOOD COUNT 4.7 K/mm3 (4.0-10.0)
[2017-04-08] MEDS ORDERED: ARGATROBAN - 250,000 MCG in SODIUM CHLORIDE 247.5 ML IVPB SCH (08:15)
[2017-04-08 08:18] LABS: ALBUMIN 2.3 g/dl (3.4-5.0); BILIRUBIN,TOTAL 2.9 mg/dL (0.2-1.0); CALCIUM 7.7 mg/dL (8.5-10.1); COCKROFT - GAULT 54.74; CREATININE 1.7 mg/dL (0.55-1.02); TOT PROT 5.4 g/dl (6.4-8.2)
--- NOTE | 2017-04-08 09:25 | PN ---
Progress Note (short form) - Note Progress Note: Ortho Pt seen and examined s/p right humerus fx splint intact, + ecchymosis, + swelling nvi xrays show displaced humerus fx a/p Continue immobilization NWB RUE will try to treat conservatively because of poor surgical status d/w DR. Avina
[2017-04-08] MEDS: MULTIVITAMINS (DAILY MVI) TABLET (FP) PO SCH (09:35)
[2017-04-08] MEDS: FOLIC ACID 1 MG TABLET (FP) PO SCH (09:35)
[2017-04-08] MEDS: CEFTRIAXONE 50 ML IVPB SCH (09:35)
[2017-04-08] MEDS: THIAMINE HCL 100 MG TABLET (FP) PO SCH (09:35)
[2017-04-08] MEDS: amLODIPine BESYLATE 2.5 MG TABLET (FP) PO SCH (09:36)
[2017-04-08] MEDS: LISINOPRIL 10 MG TABLET (FP) PO SCH (09:36)
[2017-04-08] MEDS: METOPROLOL SUCCINATE 25 MG TAB.SR.24H (FP) PO SCH (09:36)
[2017-04-08] MEDS: CITALOPRAM HYDROBROMIDE 20 MG TABLET (FP) PO SCH (09:36)
[2017-04-08] MEDS: ACLIDINIUM BROMIDE 400 MCG/INH AERO.POWD IH SCH ×2 (09:50→21:35)
--- NOTE | 2017-04-08 10:13 | PN ---
Progress Note, Physician History of Present Illness: patient stable pain main issue still with swelling of the leg - Current Medication List Current Medications: Active Medications Aclidinium [place] (Tudorza -) 1 puff IH BID [facility] Last Admin: 04/08/17 09:50 Dose: 1 puff Albuterol/Ipratropium (Duoneb -) 1 amp NEB Q4H PRN PRN Reason: SHORTNESS OF BREATH Amlodipine Besylate (Norvasc -) 2.5 mg PO DAILY [facility] Last Admin: 04/08/17 09:36 Dose: 2.5 mg Chlordiazepoxide HCl (Librium -) 25 mg PO Q4H PRN PRN Reason: WITHDRAWAL(CONT SUBST) Stop: 04/10/17 11:59 Chlordiazepoxide HCl (Librium -) 50 mg PO [id number] [facility] Stop: 04/08/17 11:01 Last Admin: 04/08/17 06:00 Dose: 50 mg Chlordiazepoxide HCl (Librium -) 25 mg PO [id number] [facility] Stop: 04/09/17 11:01 Chlordiazepoxide HCl (Librium -) 15 mg PO [id number] [facility] Stop: 04/10/17 11:01 Citalopram Hydrobromide (Celexa -) 40 mg PO DAILY [facility] Last Admin: 04/08/17 09:36 Dose: 40 mg Folic Acid (Folic Acid -) 1 mg PO DAILY [facility] Last Admin: 04/08/17 09:35 Dose: 1 mg Sodium Chloride (Normal Saline -) 1,000 mls @ 75 mls/hr IV ASDIR [facility] Last Admin: 04/08/17 10:01 Dose: 75 mls/hr Ceftriaxone Sodium (Rocephin 1gm Ivpb (Pre-Docked)) 50 mls @ 100 mls/hr IVPB DAILY [facility] Last Admin: 04/08/17 09:35 Dose: 100 mls/hr Lisinopril (Prinivil) 10 mg PO DAILY [facility] Last Admin: 04/08/17 09:36 Dose: 10 mg Metoprolol Succinate (Toprol Xl -) 25 mg PO DAILY [facility] Last Admin: 04/08/17 09:36 Dose: 25 mg Morphine Sulfate (Morphine Injection -) 2 mg IVPUSH Q3H PRN PRN Reason: PAIN Last Admin: 04/08/17 09:51 Dose: 2 mg Multivitamins/Minerals/Vitamin C (Tab-A-Vit -) 1 tab PO DAILY [facility] Last Admin: 04/08/17 09:35 Dose: 1 tab Thiamine HCl (Vitamin B1 -) 100 mg PO DAILY [facility] Last Admin: 04/08/17 09:35 Dose: 100 mg Zolpidem Tartrate (Ambien -) 5 mg PO HS PRN PRN Reason: INSOMNIA Last Admin: 04/08/17 00:35 Dose: 5 mg - Objective Vital Signs: Vital Signs Temperature 98.1 F 04/08/17 08:22 Pulse Rate 72 04/08/17 08:22 Respiratory Rate 20 04/08/17 08:22 Blood Pressure 134/68 04/08/17 08:22 O2 Sat by Pulse Oximetry (%) 96 04/07/17 21:00 Constitutional: Yes: No Distress, Calm, Obese Cardiovascular: Yes: Regular Rate and Rhythm Respiratory: Yes: Regular Gastrointestinal: Yes: Normal Bowel Sounds, Soft Musculoskeletal: Yes: Other Extremities: Yes: Other Neurological: Yes: Alert, Oriented Psychiatric: Yes: Alert Labs: CBC, BMP 04/08/17 06:50 04/08/17 06:50 INR, PTT INR 1.25 (0.82-1.09) H 04/06/17 08:15 Assessment/Plan Right humeral fracture Acute renal failure Alcoholic liver cirrhosis Alcohol abuse Macrocytic Anemia Leukocytosis Anasarca B/l lower ext swelling r/o DVT, Cellulitis Elevated cardiac profile HTN COPD plan continue ceftriaxone can change to oral ominiceff rest ct current mgmt
[2017-04-08 15:13] LABS: BASOPHIL 0.9 % (0-2.0); EOSINOPHIL 5.3 % (0-4.5); MCH 38.3 pg (25.7-33.7); MCHC 33.6 g/dl (32.0-36.0); MEAN CELL VOLUME 113.9 fl (80-96); MEAN PLT VOLUME 8.7 fl (7.5-11.1); PLATELET COUNT 102 K/MM3 (134-434); WHITE BLOOD COUNT 6.7 K/mm3 (4.0-10.0)
--- NOTE | 2017-04-08 18:32 | PN ---
Physical Exam: SUBJECTIVE: Patient seen and examined at bedside. No new complaints. No overnight events. Continues to have significant arm pain. Denies CP, TEJADA, SOB, Abd. pain, N/V. OBJECTIVE: Vital Signs Period Temp Pulse Resp BP Sys/Mccarty Pulse Ox Last 24 Hr 97.6 F-98.2 F 67-72 20-20 111-134/52-72 96-96 GENERAL: AAOx3, NAD HEAD: NC/AT EYES: PERRL, EOMI, sclera anicteric, conjunctiva clear. No ptosis. ENT: dry mucous membranes. NECK: supple, No JVD LUNGS:CTAB , no wheezes, no crackles, no accessory muscle use. HEART: RRR, S1, S2 without murmur, rub or gallop. ABDOMEN: Soft, nontender, nondistended, normoactive bowel sounds, no guarding, no rebound, no hepatosplenomegaly, no masses. EXTREMITIES: RUE in shoulder sugar tong, Diffuse echymoses of Right shoulder and arm. 2+ radial pulses bilat., warm, well-perfused. able to move fingers of right hand and feels light touch. No signs of neurovascular compromise. Bilateral LE 2+ edema. NEUROLOGICAL: Cranial nerves II through XII grossly intact. Normal speech, gait not observed. PSYCH: Normal mood, normal affect. SKIN: LLE edema and erythema have improved. Laboratory Results - last 24 hr 04/06/17 04/08/17 04/08/17 08:00 06:50 06:50 WBC 4.7 D RBC 1.99 L Hgb 7.7 L Hct 22.6 L MCV 113.4 H MCHC 34.0 RDW 22.8 H Plt Count 84 L MPV 8.3 Neutrophils % 50.3 Lymphocytes % 29.3 Monocytes % 13.6 H Eosinophils % 5.7 H D Basophils % 1.1 Sodium 139 Potassium 3.9 Chloride 102 Carbon Dioxide 27 Anion Gap 10 BUN 30 H Creatinine 1.7 H Creat Clearance w eGFR 29.80 Random Glucose 109 H Calcium 7.7 L Iron 139 TIBC 219 L Iron Saturation 63 H Total Bilirubin 2.9 H AST 92 H ALT 39 Alkaline Phosphatase 126 H Total Protein 5.4 L Albumin 2.3 L 04/08/17 14:25 WBC 6.7 D RBC 2.28 L Hgb 8.7 L D Hct 25.9 L MCV 113.9 H MCHC 33.6 RDW 23.0 H Plt Count 102 L D MPV 8.7 Neutrophils % 50.0 Lymphocytes % 31.0 Monocytes % 12.8 H Eosinophils % 5.3 H Basophils % 0.9 Sodium Potassium Chloride Carbon Dioxide Anion Gap BUN Creatinine Creat Clearance w eGFR Random Glucose Calcium Iron TIBC Iron Saturation Total Bilirubin AST ALT Alkaline Phosphatase Total Protein Albumin Active Medications Generic Name Dose Route Start Last Admin Trade Name Freq PRN Reason Stop Dose Admin Aclidinium [place] 1 puff 04/06/17 10:00 04/08/17 09:50 Tudorza - IH 1 puff BID JACOB Administration Albuterol/Ipratropium 1 amp 04/06/17 08:50 Duoneb - NEB Q4H PRN SHORTNESS OF BREATH Amlodipine Besylate 2.5 mg 04/07/17 10:00 04/08/17 09:36 Norvasc - PO 2.5 mg DAILY [facility] Administration Chlordiazepoxide HCl 25 mg 04/07/17 12:00 Librium - PO 04/10/17 11:59 Q4H PRN WITHDRAWAL(CONT SUBST) Chlordiazepoxide HCl 25 mg 04/08/17 17:00 04/08/17 17:47 Librium - PO 04/09/17 11:01 25 mg [id number] [facility]AC[facility] Administration Chlordiazepoxide HCl 15 mg 04/09/17 17:00 Librium - PO 04/10/17 11:01 [id number] JACOB Citalopram Hydrobromide 40 mg 04/07/17 10:00 04/08/17 09:36 Celexa - PO 40 mg DAILY [facility] Administration Folic Acid 1 mg 04/06/17 10:00 04/08/17 09:35 Folic Acid - PO 1 mg DAILY [facility] Administration Sodium Chloride 1,000 mls @ 75 mls/hr 04/06/17 15:04 04/08/17 16:11 Normal Saline - IV Not Given ASDIR JACOB Ceftriaxone Sodium 50 mls @ 100 mls/hr 04/07/17 14:00 04/08/17 09:35 Rocephin 1gm Ivpb (Pre-Docked) IVPB 100 mls/hr DAILY [facility] Administration Lisinopril 10 mg 04/07/17 10:00 04/08/17 09:36 Prinivil PO 10 mg DAILY [facility] Administration Metoprolol Succinate 25 mg 04/07/17 10:00 04/08/17 09:36 Toprol Xl - PO 25 mg DAILY [facility] Administration Morphine Sulfate 2 mg 04/06/17 04:28 04/08/17 16:17 Morphine Injection - IVPUSH 2 mg Q3H PRN Administration PAIN Multivitamins/Minerals/Vitamin C 1 tab 04/06/17 10:00 04/08/17 09:35 Tab-A-Vit - PO 1 tab DAILY [facility] Administration Thiamine HCl 100 mg 04/06/17 10:00 04/08/17 09:35 Vitamin B1 - PO 100 mg DAILY [facility] Administration Zolpidem Tartrate 5 mg 04/06/17 18:08 04/08/17 00:35 Ambien - PO 5 mg HS PRN Administration INSOMNIA ASSESSMENT/PLAN: 71 yo F with PMhx of HTN, COPD, ETOH Liver cirrhosis admitted s/p mechanical fall and fracture of right humerus. Problem List - Problems (1) Closed right humeral fracture Assessment/Plan: * XRAY show comminuted Fx of right humerus. * Seen by ortho - conservative management at this time * Intact neuro and vascular exam. * Not a good surgical candidate-I called [facility] for possble transfer ; awaiting call back. (2) Alcohol abuse Assessment/Plan: * Thiamine and folate supplementation * will monitor for signs of withdrawl. * On librium detox protocol (3) HTN (hypertension) Assessment/Plan: * Amlodipine 2.5 mg po daily * lisinopril 10mg PO daily * Metoprolol 25mg Daily (4) [id number] kidney injury Assessment/Plan: * continue IVF NS @75ml/hr * kidney function is improving * will continue to monitor. (5) Left leg cellulitis Assessment/Plan: * LE duplex (-) for DVT * felt to be most likely traumatic * switched to Ceftriaxone 1gmIV daily. (6) COPD (chronic obstructive pulmonary disease) Assessment/Plan: * Tudorza 1 puff IH BID * supplemental O2 via NC maintain SpO2 >92% (7) Alcoholic cirrhosis Assessment/Plan: * Will monitor LFT's (8) DVT prophylaxis Assessment/Plan: * SCD's bilat. Visit type - Emergency Visit Emergency Visit: Yes ED Registration Date: 04/06/17 Care time: The patient presented to the Emergency Department on the above date and was hospitalized for further evaluation of their emergent condition. - New Patient This patient is new to me today: No - Critical Care Critical Care patient: No - Discharge Referral Referred to [facility] Med P.C.: No
--- NOTE | 2017-04-08 18:59 | PN ---
Teaching Attending Note Name of Resident: Mohan Mccartney ATTENDING PHYSICIAN STATEMENT I saw and evaluated the patient. I reviewed the resident's note and discussed the case with the resident. I agree with the resident's findings and plan as documented. SUBJECTIVE: no fever or chills. feels van in RUE OBJECTIVE: NAD Awake ,and alert , cooperative . MMM, no JVD, symmetric face. CV: RRR, Lungs : CTAB , decreased breath sounds at bases Ext: L LE pitting edema . erythema on medial leg and thigh ( improved ) . old surgical scars on L foot minimal edema on R LE . no erythema . DP 2+ b/l RUE in a sling, with bruising of the R shoulder and upper arm . RP 2+ b/l , nl sensation to light touch in hand and nl movement of her fingers . ASSESSMENT AND PLAN: 71 y/o lady with h/o Liver cirrhosis , alcoholism, COPD who presented after a fall with R UE pain, and was found to have R humerous Fx . 1- Acute comminuted Fx of the RUE: s/p mechanical fall. intact neuro vascular exam. - Cont sling, f/u with ortho as out pt - monitor neuro vascular exam of RUE.. 2- ETOH abuse : no evidence of withdrawal. - cont librium protocol. 3- PAULA, base line Cr 1.1 .probably has CKD as she follows with renal as out pt - prerenal in etiology, as FeNA < 1% - cont gentle hydration - cr improved 4- LLE cellulitis: day 3/5 of Abx cont ceftriaxone lactic acidosis resolved 5- Elevated trop :due to renal failure . no suspicion for ischemia 6- Macrocytic Anemia: likely chronic due to alcohol use . - B12 , folate nl - iron studies show anemia of chronic disease 7- Liver cirrhosis, with ascitis . can explain elevated LFTS . monitor 8- SCDS . Heparin sq HLOC.
[2017-04-08] MEDS ORDERED: PT OWN MED DRAWER 7, Y5N ONE (21:31)
[2017-04-09] MEDS: morphine CARPU-JECT 2 MG/1 ML DISP.SYRIN IVPUSH PRN (02:28)
[2017-04-09] MEDS ORDERED: traMADol HCL 50 MG TABLET PO ONE (04:57)
[2017-04-09] MEDS: SODIUM CHLORIDE 1,000 ML IV SCH (05:16)
[2017-04-09] MEDS: chlordiazePOXIDE HCL 25 MG CAPSULE PO SCH ×2 (05:16→11:29)
[2017-04-09 08:31] LABS: MCHC 35.1 g/dl (32.0-36.0); MEAN CELL VOLUME 116.9 fl (80-96); MEAN PLT VOLUME 8.7 fl (7.5-11.1); PLATELET COUNT 85 K/MM3 (134-434); RDW 23.5 % (11.6-15.6); WHITE BLOOD COUNT 4.8 K/mm3 (4.0-10.0)
[2017-04-09 08:53] LABS: MCH 41.1 pg (25.7-33.7)
[2017-04-09 08:56] LABS: CALCIUM 7.8 mg/dL (8.5-10.1); COCKROFT - GAULT 62.05; CREATININE 1.5 mg/dL (0.55-1.02)
[2017-04-09] MEDS: MULTIVITAMINS (DAILY MVI) TABLET (FP) PO SCH (09:14)
[2017-04-09] MEDS: METOPROLOL SUCCINATE 25 MG TAB.SR.24H (FP) PO SCH (09:14)
[2017-04-09] MEDS: THIAMINE HCL 100 MG TABLET (FP) PO SCH (09:14)
[2017-04-09] MEDS: CEFTRIAXONE 50 ML IVPB SCH (09:14)
[2017-04-09] MEDS: FOLIC ACID 1 MG TABLET (FP) PO SCH (09:14)
[2017-04-09] MEDS: CITALOPRAM HYDROBROMIDE 20 MG TABLET (FP) PO SCH (09:14)
[2017-04-09] MEDS: amLODIPine BESYLATE 2.5 MG TABLET (FP) PO SCH (09:14)
[2017-04-09] MEDS: LISINOPRIL 10 MG TABLET (FP) PO SCH (09:14)
[2017-04-09] MEDS: ACLIDINIUM BROMIDE 400 MCG/INH AERO.POWD IH SCH ×2 (09:15→22:03)
--- NOTE | 2017-04-09 10:47 | PN ---
Progress Note (short form) - Note Progress Note: Subjective: No fever or chills, has pain in RUE. Objective: Vital Signs: Last Vital Signs Temp Pulse Resp BP Pulse Ox 98.6 F 70 20 104/59 98 04/09/17 06:00 04/09/17 10:00 04/09/17 10:00 04/09/17 10:00 04/09/17 09:00 Laboratory Results - last 24 hr 04/08/17 04/09/17 04/09/17 14:25 08:00 08:00 WBC 6.7 D 4.8 RBC 2.28 L 1.98 L Hgb 8.7 L D 8.1 L Hct 25.9 L 23.1 L MCV 113.9 H 116.9 H MCHC 33.6 35.1 RDW 23.0 H 23.5 H Plt Count 102 L D 85 L MPV 8.7 8.7 Neutrophils % 50.0 Lymphocytes % 31.0 Monocytes % 12.8 H Eosinophils % 5.3 H Basophils % 0.9 Sodium 141 Potassium 4.2 Chloride 103 Carbon Dioxide 26 Anion Gap 12 BUN 29 H Creatinine 1.5 H Random Glucose 99 Calcium 7.8 L Physical Exam: NAD Awake ,and alert , cooperative . CV: RRR, Lungs : CTAB , decreased breath sounds at bases Ext: L LE pitting edema . erythema on medial leg and thigh ( improved ) . old surgical scars on L foot minimal edema on R LE . no erythema . DP 2+ b/l RUE in a sling, with bruising of the R shoulder and upper arm . RP 2+ b/l , nl sensation to light touch in hand and nl movement of her fingers . ASSESSMENT AND PLAN: 71 y/o lady with h/o Liver cirrhosis , alcoholism, COPD who presented after a fall with R UE pain, and was found to have R humerous Fx . 1- Acute comminuted Fx of the RUE: s/p mechanical fall. intact neuro vascular exam. - Cont sling, f/u with ortho as out pt - monitor neuro vascular exam of RUE.. 2- ETOH abuse : no evidence of withdrawal. - cont librium protocol. 3- PAULA, base line Cr 1.1 . - prerenal in etiology, as FeNA < 1% - cont gentle hydration - cr cont to improve . will follow renal function tomorrow 4- LLE cellulitis: day 4/5 of Abx cont ceftriaxone lactic acidosis resolved 5- Elevated trop :due to renal failure . no suspicion for ischemia 6- Macrocytic Anemia: likely chronic due to alcohol use . - B12 , folate nl - iron studies show anemia of chronic disease 7- Liver cirrhosis, with ascitis . can explain elevated LFTS . monitor 8- SCDS . Heparin sq HLOC. PT Visit type - Emergency Visit Emergency Visit: Yes ED Registration Date: 04/06/17 Care time: The patient presented to the Emergency Department on the above date and was hospitalized for further evaluation of their emergent condition. - New Patient This patient is new to me today: No - Critical Care Critical Care patient: No
[2017-04-09] MEDS: traMADol HCL 50 MG TABLET PO PRN ×3 (13:11→22:06)
[2017-04-09] MEDS: chlordiazePOXIDE 5 MG CAPSULE PO SCH (17:04)
--- NOTE | 2017-04-09 17:52 | PN ---
Progress Note, Physician History of Present Illness: patient stable no new issues - Current Medication List Current Medications: Active Medications Aclidinium [place] (Tudorza -) 1 puff IH BID [facility] Last Admin: 04/09/17 09:15 Dose: 1 puff Albuterol/Ipratropium (Duoneb -) 1 amp NEB Q4H PRN PRN Reason: SHORTNESS OF BREATH Amlodipine Besylate (Norvasc -) 2.5 mg PO DAILY [facility] Last Admin: 04/09/17 09:14 Dose: 2.5 mg Chlordiazepoxide HCl (Librium -) 25 mg PO Q4H PRN PRN Reason: WITHDRAWAL(CONT SUBST) Stop: 04/10/17 11:59 Chlordiazepoxide HCl (Librium -) 15 mg PO [id number] [facility] Stop: 04/10/17 11:01 Last Admin: 04/09/17 17:04 Dose: 15 mg Citalopram Hydrobromide (Celexa -) 40 mg PO DAILY [facility] Last Admin: 04/09/17 09:14 Dose: 40 mg Folic Acid (Folic Acid -) 1 mg PO DAILY [facility] Last Admin: 04/09/17 09:14 Dose: 1 mg Sodium Chloride (Normal Saline -) 1,000 mls @ 75 mls/hr IV ASDIR [facility] Last Admin: 04/09/17 05:16 Dose: 75 mls/hr Ceftriaxone Sodium (Rocephin 1gm Ivpb (Pre-Docked)) 50 mls @ 100 mls/hr IVPB DAILY [facility] Last Admin: 04/09/17 09:14 Dose: 100 mls/hr Lisinopril (Prinivil) 10 mg PO DAILY [facility] Last Admin: 04/09/17 09:14 Dose: 10 mg Metoprolol Succinate (Toprol Xl -) 25 mg PO DAILY [facility] Last Admin: 04/09/17 09:14 Dose: 25 mg Multivitamins/Minerals/Vitamin C (Tab-A-Vit -) 1 tab PO DAILY [facility] Last Admin: 04/09/17 09:14 Dose: 1 tab Thiamine HCl (Vitamin B1 -) 100 mg PO DAILY [facility] Last Admin: 04/09/17 09:14 Dose: 100 mg Tramadol HCl (Ultram -) 50 mg PO Q4H PRN PRN Reason: PAIN LEVEL 6-10 Last Admin: 04/09/17 17:03 Dose: 50 mg Zolpidem Tartrate (Ambien -) 5 mg PO HS PRN PRN Reason: INSOMNIA Last Admin: 04/08/17 00:35 Dose: 5 mg - Objective Vital Signs: Vital Signs Temperature 97.9 F 04/09/17 13:46 Pulse Rate 67 04/09/17 13:46 Respiratory Rate 20 04/09/17 13:46 Blood Pressure 130/62 04/09/17 13:46 O2 Sat by Pulse Oximetry (%) 98 04/09/17 09:00 Constitutional: Yes: No Distress, Calm Cardiovascular: Yes: S1, S2 Respiratory: Yes: Regular, CTA Bilaterally Gastrointestinal: Yes: Normal Bowel Sounds, Soft Musculoskeletal: Yes: Other Extremities: Yes: Other Neurological: Yes: Alert, Oriented Psychiatric: Yes: Alert Labs: CBC, BMP 04/09/17 08:00 04/09/17 08:00 INR, PTT INR 1.25 (0.82-1.09) H 04/06/17 08:15 Assessment/Plan Right humeral fracture Acute renal failure Alcoholic liver cirrhosis Alcohol abuse Macrocytic Anemia Leukocytosis Anasarca B/l lower ext swelling r/o DVT, Cellulitis Elevated cardiac profile HTN COPD plan continue current mgmt rest as per primary
--- NOTE | 2017-04-09 21:52 | PN ---
Progress Note (short form) - Note Progress Note: COMFORTABLE IN SPLINT XRAY ACCEPTABLE PLAN: MAINTAIN SPLINT, NO OPERATIVE TREATMENT AT THIS TIME. WILL FOLLOW
[2017-04-09] MEDS: ZOLPIDEM TARTRATE 5 MG TABLET PO PRN (22:03)
[2017-04-10] MEDS: chlordiazePOXIDE 5 MG CAPSULE PO SCH ×6 (00:45→23:30)
[2017-04-10] MEDS: SODIUM CHLORIDE 1,000 ML IV SCH ×3 (00:49→15:16)
[2017-04-10] MEDS ORDERED: PT OWN MED DRAWER 7, Y5N ONE ×3 (00:58→21:32)
[2017-04-10] MEDS: traMADol HCL 50 MG TABLET PO PRN ×2 (05:48→11:56)
[2017-04-10 08:40] LABS: CALCIUM 7.8 mg/dL (8.5-10.1); COCKROFT - GAULT 66.47; CREATININE 1.4 mg/dL (0.55-1.02)
[2017-04-10] MEDS: ACLIDINIUM BROMIDE 400 MCG/INH AERO.POWD IH SCH ×2 (09:16→21:34)
[2017-04-10] MEDS: METOPROLOL SUCCINATE 25 MG TAB.SR.24H (FP) PO SCH (09:17)
[2017-04-10] MEDS: amLODIPine BESYLATE 2.5 MG TABLET (FP) PO SCH (09:17)
[2017-04-10] MEDS: THIAMINE HCL 100 MG TABLET (FP) PO SCH (09:17)
[2017-04-10] MEDS: LISINOPRIL 10 MG TABLET (FP) PO SCH (09:17)
[2017-04-10] MEDS: CEFTRIAXONE 50 ML IVPB SCH (09:17)
[2017-04-10] MEDS: CITALOPRAM HYDROBROMIDE 20 MG TABLET (FP) PO SCH (09:17)
[2017-04-10] MEDS: MULTIVITAMINS (DAILY MVI) TABLET (FP) PO SCH (09:17)
[2017-04-10] MEDS: FOLIC ACID 1 MG TABLET (FP) PO SCH (09:17)
[2017-04-10] MEDS ORDERED: OXYCODONE/APAP 5/325MG COMBO TABLET PO PRN (12:59)
[2017-04-10] MEDS ORDERED: POLYETHYLENE GLYCOL 3350 119 GM BTL PO PRN (12:59)
--- NOTE | 2017-04-10 13:10 | PN ---
Progress Note (short form) - Note Progress Note: Subjective: No fever or chills, has pain in RUE. constipated . Objective: Vital Signs: Last Vital Signs Temp Pulse Resp BP Pulse Ox 97.7 F 68 18 130/56 97 04/10/17 08:00 04/10/17 08:00 04/10/17 08:00 04/10/17 08:00 04/10/17 09:00 Laboratory Results - last 24 hr 04/08/17 04/10/17 10:05 07:00 Sodium 143 Potassium 4.2 Chloride 108 H Carbon Dioxide 22 Anion Gap 13 BUN 29 H Creatinine 1.4 H Random Glucose 100 Calcium 7.8 L Hep-Induced Plt Ab Rapid 0.588 H Physical Exam: NAD Awake ,and alert , cooperative . CV: RRR, Lungs : CTAB , decreased breath sounds at bases Ext: LLE pitting edema . erythema on medial leg and thigh ( improved ) . old surgical scars on L foot minimal edema on R LE . no erythema . DP 2+ b/l RUE in a sling, with bruising of the R shoulder and upper arm . RP 2+ b/l , nl sensation to light touch in hand and nl movement of her fingers . ASSESSMENT AND PLAN: 71 y/o lady with h/o Liver cirrhosis , alcoholism, COPD who presented after a fall with R UE pain, and was found to have R humerous Fx . 1- Acute comminuted Fx of the RUE: s/p mechanical fall. - Cont sling, f/u with ortho as out pt - change altram to percocet fro pain control - treat constipation. 2- ETOH abuse : no evidence of withdrawal. - cont librium protocol. 4 more doses of 10 mg of librium 3- PAULA, base line Cr 1.1 . prerenal - cont gentle hydration 4- LLE cellulitis: day 5 of Abx cont ceftriaxone 5- Elevated trop :due to renal failure . no suspicion for ischemia 6- Macrocytic Anemia: likely chronic due to alcohol use . - B12 , folate nl - iron studies show anemia of chronic disease 7- Liver cirrhosis, with ascitis . can explain elevated LFTS . monitor 8- SCDS . Heparin sq HLOC. PT . will need rehab at [place] probably in 1-2 days Visit type - Emergency Visit Emergency Visit: Yes ED Registration Date: 04/06/17 Care time: The patient presented to the Emergency Department on the above date and was hospitalized for further evaluation of their emergent condition. - New Patient This patient is new to me today: No - Critical Care Critical Care patient: No
[2017-04-10] MEDS: oxyCODONE HCL 5 MG TABLET PO PRN ×3 (13:23→23:20)
[2017-04-10] MEDS: ACETAMINOPHEN 325 MG TABLET (FP) PO PRN ×2 (13:24→21:34)
[2017-04-10] MEDS: ZOLPIDEM TARTRATE 5 MG TABLET PO PRN (23:20)
[2017-04-11] MEDS: ACETAMINOPHEN 325 MG TABLET (FP) PO PRN ×2 (05:08→11:24)
[2017-04-11] MEDS: oxyCODONE HCL 5 MG TABLET PO PRN ×2 (05:17→11:24)
[2017-04-11] MEDS: chlordiazePOXIDE 5 MG CAPSULE PO SCH (06:37)
[2017-04-11 08:31] LABS: CALCIUM 7.9 mg/dL (8.5-10.1); COCKROFT - GAULT 71.57; CREATININE 1.3 mg/dL (0.55-1.02)
--- NOTE | 2017-04-11 08:32 | PN ---
Progress Note (short form) - Note Progress Note: Ortho Pt seen and examined s/p right humerus fx splint intact, + ecchymosis, + swelling nvi xrays show displaced humerus fx a/p Continue immobilization NWB RADHA d/c planning d/w DR. Avina
[2017-04-11] MEDS ORDERED: PT OWN MED DRAWER 7, Y5N ONE (09:21)
[2017-04-11] MEDS: CEFTRIAXONE 50 ML IVPB SCH (09:29)
[2017-04-11] MEDS: CITALOPRAM HYDROBROMIDE 20 MG TABLET (FP) PO SCH (09:29)
[2017-04-11] MEDS: MULTIVITAMINS (DAILY MVI) TABLET (FP) PO SCH (09:29)
[2017-04-11] MEDS: ACLIDINIUM BROMIDE 400 MCG/INH AERO.POWD IH SCH (09:29)
[2017-04-11] MEDS: THIAMINE HCL 100 MG TABLET (FP) PO SCH (09:29)
[2017-04-11] MEDS: FOLIC ACID 1 MG TABLET (FP) PO SCH (09:30)
[2017-04-11] MEDS: LISINOPRIL 10 MG TABLET (FP) PO SCH (09:30)
[2017-04-11] MEDS: METOPROLOL SUCCINATE 25 MG TAB.SR.24H (FP) PO SCH (09:30)
[2017-04-11] MEDS: amLODIPine BESYLATE 2.5 MG TABLET (FP) PO SCH (09:30)
[2017-04-11 12:15] LABS: MCHC 32.8 g/dl (32.0-36.0); MEAN PLT VOLUME 9.5 fl (7.5-11.1); PLATELET COUNT 80 K/MM3 (134-434)
[2017-04-11] MEDS ORDERED: ALBUTEROL SO4 2.5/IPRATROPIUM 0.5 INH SOL 3 ML VIAL.NEB. NEB PRN (14:49)
--- NOTE | 2017-04-11 16:15 | DS ---
Physical Exam: SUBJECTIVE: Patient seen and examined at bedside. No overnight events. No new complaints. Continued arm pain well controlled. Breathing at baseline. Denies CP ,TEJADA, SOB, abd. pain/N/V OBJECTIVE: Vital Signs Period Temp Pulse Resp BP Sys/Mccarty Pulse Ox Last 24 Hr 97.6 F-98.6 F 60-63 18-20 113-134/54-65 96-97 PHYSICAL EXAM GENERAL: AAOx3, NAD HEAD: NC/AT EYES: PERRL, EOMI, sclera anicteric, conjunctiva clear. No ptosis. ENT: dry mucous membranes. NECK: supple, No JVD LUNGS:CTAB , no wheezes, no crackles, no accessory muscle use. HEART: RRR, S1, S2 without murmur, rub or gallop. ABDOMEN: Soft, nontender, nondistended, normoactive bowel sounds, no guarding, no rebound, no hepatosplenomegaly, no masses. EXTREMITIES: RUE in shoulder sugar tong, Diffuse echymoses of Right shoulder and arm. 2+ radial pulses bilat., warm, well-perfused. able to move fingers of right hand and feels light touch. No signs of neurovascular compromise. Bilateral LE 2+ edema. NEUROLOGICAL: Cranial nerves II through XII grossly intact. Normal speech, gait not observed. PSYCH: Normal mood, normal affect. SKIN: LLE edema and erythema have improved. LABS Laboratory Results - last 24 hr 04/11/17 04/11/17 06:30 06:30 WBC 4.0 RBC 2.21 L Hgb 8.6 L Hct 26.3 L MCV 119.0 H MCHC 32.8 RDW 25.0 H Plt Count 80 L MPV 9.5 Sodium 143 Potassium 4.4 Chloride 109 H Carbon Dioxide 25 Anion Gap 9 BUN 28 H Creatinine 1.3 H Random Glucose 90 Calcium 7.9 L IMAGING: * [id number] RAD/HUMERUS-RIGHT Humerus: HISTORY: Right humerus fracture follow- up. 3 views of the right humerus are provided. Prior study dated April 06, 2017. Segmental fractures of the proximal to mid humerus are again noted. The superior fracture extends to the region of the surgical neck. The more inferior fracture is at about the level of the mid shaft and appears mildly comminuted. There is angulation particularly at the lower fracture site. There is also linear lucency extending through the greater tuberosity suspicious for nondisplaced fracture. There is osteopenia. IMPRESSION: Segmental fractures of the proximal to mid humerus. Nondisplaced fracture through the greater tuberosity. Reported By: Silverio Parker MD * EXAM#: TYPE/EXAM: RESULT: [id number] US/SOFT TISSUE EXTREMITY US Right humerus fracture. Rule out hematoma. Right upper extremity soft tissue ultrasound. Multiple bravo scale images of the right arm soft tissue including medial, anterior and lateral aspect were submitted. No collection or hematoma is identified. The right forearm and elbow region could not be evaluated. IMPRESSION: There is no gross evidence of a collection or hematoma the right arm. Reported By: Nicholas Martinez MD 04/06/17 1119 HOSPITAL COURSE: 71 yo F with PMhx of HTN, COPD, ETOH Liver cirrhosis admitted s/p mechanical fall and fracture of right humerus. Fracture confirmed on XRAY. US RUE showed no hematoma or fluid collection. Ortho evaluated patient and was managed conservatively with Arm cast and immobilization. Her RUE remained neurovascularly intact throughout admission will need rehabilitation.She completed librium taper alcohol detox and will need to continue thaimine and folate supplementation. Iron studies showed ACD. PAULA was managed with fluid resuscitation and returned to baseline. Initial labs also reveled elevated troponin most likely a result of renal failure. LLE cellulitis noted on admission was treated with 5 day course of Ceftriaxone. Patient discharged in stable condition to rehab facility. Date of Admission:04/06/17 Date of Discharge: 04/11/17 Minutes to complete discharge: 60 Discharge Summary Reason For Visit: CLOSED RT HUMERAL FX/ELEVATED TRANSAMINA Current Active Problems Hshpg-vi-obbugpi kidney injury (Acute) Closed right humeral fracture (Acute) DVT prophylaxis (Acute) Elevated transaminase level (Acute) Elevated troponin I level (Acute) High anion gap metabolic acidosis (Acute) Left leg cellulitis (Acute) Macrocytic anemia (Acute) Alcohol abuse (Chronic) Alcohol dependence with uncomplicated withdrawal (Chronic) Alcoholic cirrhosis (Chronic) COPD (chronic obstructive pulmonary disease) (Chronic) HTN (hypertension) (Chronic) Condition: Stable - Instructions Diet, Activity, Other Instructions: You have sustained a right humerus fracture. Continue immobilization , No weight bearing with Right arm. - Follow up with orthopedic Dr. Avina in 1 week -You have also completed a detox regimen please abstain from alcohol consumption and continue thiamine and folate supplementation. - Please restart your home medications for blood pressure and COPD. -Low sodium diet - Increase activity as tolerated. - continue to wear the sling on R arm . - follow with Dr. Malhotra, the infectious disease specialist Referrals: Moraima Malhotra MD [Staff Physician] - 1 Week Toni Avina MD [Staff Physician] - 1 Week Kerrie Cai MD [Primary Care Provider] - 1 Week Disposition: [facility] - Home Medications Comprehensive Discharge Medication List: Ambulatory Orders Amlodipine Besylate/Benazepril [Lotrel 2.5-10 mg Capsule] 1 PO DAILY 04/06/17 Citalopram Hydrobromide [Celexa -] 40 mg PO DAILY 04/06/17 Lorazepam 1 mg PO TID 04/06/17 Metoprolol Succinate [Toprol XL -] 25 mg PO DAILY 04/06/17 Zolpidem Tartrate 10 mg PO HS 04/06/17 Oxycodone HCl [Roxicodone -] 5 mg PO Q6H #20 tablet MDD 4 04/11/17 Problem List - Problems (1) Closed right humeral fracture (2) Alcohol abuse (3) HTN (hypertension) (4) Xevrb-tw-zhnnrtk kidney injury (5) Left leg cellulitis (6) COPD (chronic obstructive pulmonary disease) (7) Alcoholic cirrhosis (8) DVT prophylaxis This patient is new to me today: No Emergency Visit: Yes ED Registration Date: 04/06/17 Care time: The patient presented to the Emergency Department on the above date and was hospitalized for further evaluation of their emergent condition. Critical Care patient: No - Discharge Referral Referred to [facility] No
--- NOTE | 2017-04-11 16:32 | PN ---
Progress Note, Physician History of Present Illness: patient stable no new issues - Current Medication List Current Medications: Active Medications Acetaminophen (Tylenol -) 325 mg PO Q6H PRN PRN Reason: PAIN Last Admin: 04/11/17 11:24 Dose: 325 mg Aclidinium [place] (Tudorza -) 1 puff IH BID [facility] Last Admin: 04/11/17 09:29 Dose: 1 puff Albuterol/Ipratropium (Duoneb -) 1 amp NEB Q6H PRN PRN Reason: SHORTNESS OF BREATH Last Admin: 04/11/17 15:16 Dose: 1 amp Amlodipine Besylate (Norvasc -) 2.5 mg PO DAILY [facility] Last Admin: 04/11/17 09:30 Dose: 2.5 mg Citalopram Hydrobromide (Celexa -) 40 mg PO DAILY [facility] Last Admin: 04/11/17 09:29 Dose: 40 mg Folic Acid (Folic Acid -) 1 mg PO DAILY [facility] Last Admin: 04/11/17 09:30 Dose: 1 mg Sodium Chloride (Normal Saline -) 1,000 mls @ 75 mls/hr IV ASDIR [facility] Last Admin: 04/10/17 15:16 Dose: Not Given Ceftriaxone Sodium (Rocephin 1gm Ivpb (Pre-Docked)) 50 mls @ 100 mls/hr IVPB DAILY [facility] Last Admin: 04/11/17 09:29 Dose: 100 mls/hr Lisinopril (Prinivil) 10 mg PO DAILY [facility] Last Admin: 04/11/17 09:30 Dose: 10 mg Metoprolol Succinate (Toprol Xl -) 25 mg PO DAILY [facility] Last Admin: 04/11/17 09:30 Dose: 25 mg Multivitamins/Minerals/Vitamin C (Tab-A-Vit -) 1 tab PO DAILY [facility] Last Admin: 04/11/17 09:29 Dose: 1 tab Oxycodone HCl (Roxicodone -) 5 mg PO Q6H PRN PRN Reason: PAIN LEVEL 6-10 Last Admin: 04/11/17 11:24 Dose: 5 mg Polyethylene Glycol (Miralax (For Daily Use) -) 17 gm PO DAILY PRN PRN Reason: CONSTIPATION Last Admin: 04/11/17 09:30 Dose: 17 gm Thiamine HCl (Vitamin B1 -) 100 mg PO DAILY [facility] Last Admin: 04/11/17 09:29 Dose: 100 mg - Objective Vital Signs: Vital Signs Temperature 98.6 F 04/11/17 14:46 Pulse Rate 63 04/11/17 14:46 Respiratory Rate 18 04/11/17 07:47 Blood Pressure 117/65 04/11/17 14:46 O2 Sat by Pulse Oximetry (%) 96 04/11/17 09:00 Constitutional: Yes: No Distress, Calm, Obese Cardiovascular: Yes: Regular Rate and Rhythm Respiratory: Yes: Regular, CTA Bilaterally Gastrointestinal: Yes: Normal Bowel Sounds, Soft Musculoskeletal: Yes: Other Extremities: Yes: Other Neurological: Yes: Alert, Oriented Psychiatric: Yes: Alert Labs: CBC, BMP 04/11/17 06:30 04/11/17 06:30 INR, PTT INR 1.25 (0.82-1.09) H 04/06/17 08:15 Assessment/Plan Right humeral fracture Acute renal failure Alcoholic liver cirrhosis Alcohol abuse Macrocytic Anemia Leukocytosis Anasarca B/l lower ext swelling r/o DVT, Cellulitis Elevated cardiac profile HTN COPD plan continue current mgmt rest as per primary
--- NOTE | 2017-04-11 17:07 | PN ---
Teaching Attending Note Name of Resident: Mohan Mccartney ATTENDING PHYSICIAN STATEMENT I saw and evaluated the patient. I reviewed the resident's note and discussed the case with the resident. I agree with the resident's findings and plan as documented. SUBJECTIVE: no fever or chills, has pain in R arm . no numbness or tingling OBJECTIVE: NAD Awake ,and alert , cooperative . CV: RRR, Lungs : CTAB , decreased breath sounds at bases Ext: LLE 2+ pitting edema . erythema on medial leg and thigh ( improved ) . old surgical scars on L foot minimal edema on R LE . no erythema . DP 2+ b/l RUE in a sling, with bruising of the R shoulder and upper arm . RP 2+ b/l , nl sensation to light touch in hand and nl movement of her fingers . ASSESSMENT AND PLAN: 71 y/o lady with h/o Liver cirrhosis , alcoholism, COPD who presented after a fall with R UE pain, and was found to have R humerous Fx . 1- Acute comminuted Fx of the RUE: s/p mechanical fall. - Cont sling, f/u with ortho as out pt . today team called ortho service at [facility] nguy[facility]n Carbajal and discussed surgical options. No surgical procedure was recommended - treat constipation. 2- ETOH abuse : no evidence of withdrawal. - finished detox 3- PAULA, base line Cr 1.1 . prerenal . Cr 1.3 today , legs are more edematous. dc IVF 4- LLE cellulitis: day 5 of Abx cont ceftriaxone 5- Elevated trop :due to renal failure. no suspicion for ischemia 6- Macrocytic Anemia: likely chronic due to alcohol use . - B12 , folate nl - iron studies show anemia of chronic disease 7- Liver cirrhosis, with ascitis . can explain elevated LFTS . monitor dc to rehab today
[2017-04-11 17:24] VITALS: BP 122/54; PULSE 67; TEMP 97.6
== END 2017-04-11 18:25 | DRG 683 ==
LOC: JER 01:15 → JERBED 03:53 → UNDOADMIN 04:25 → JERBED 04:25 → J6S 14:19
PROVIDERS: ADMIT Internal Medicine; ATTEND Internal Medicine
PROC: 2W3AX1Z Immobilization of Right Upper Arm using Splint (ICD-10-PCS; principal; 2017-04-06)
PROC: HZ2ZZZZ Detoxification Services for Substance Abuse Treatment (ICD-10-PCS; 2017-04-07)
DX: N17.9 Acute kidney failure, unspecified (principal); S42.301A Unspecified fracture of shaft of humerus, right arm, initial encounter for closed fracture; E87.2 Acidosis; L03.116 Cellulitis of left lower limb; W18.2XXA Fall in (into) shower or empty bathtub, initial encounter; Z91.81 History of falling; Y93.E1 Activity, personal bathing and showering; Y92.002 Bathroom of unspecified non-institutional (private) residence as the place of occurrence of the external cause; J44.9 Chronic obstructive pulmonary disease, unspecified; Z87.891 Personal history of nicotine dependence; D72.829 Elevated white blood cell count, unspecified; R60.0 Localized edema; E66.01 Morbid (severe) obesity due to excess calories; Z68.38 Body mass index [BMI] 38.0-38.9, adult; K70.31 Alcoholic cirrhosis of liver with ascites; I12.9 Hypertensive chronic kidney disease with stage 1 through stage 4 chronic kidney disease, or unspecified chronic kidney disease; N18.9 Chronic kidney disease, unspecified; D63.8 Anemia in other chronic diseases classified elsewhere; R74.0 Nonspecific elevation of levels of transaminase and lactic acid dehydrogenase [LDH]
CPT/HCPCS: 36415; 36600; 70450-TC; 71010-TC; 73030-TC-RT; 73060-TC-RT; 76705-TC; 76882; 80048; 80053; 80076; 80307; 81003; 81015; 82009; 82436; 82550; 82553; 82570; 82607; 82728; 82746; 82803; 83540; 83550; 83605; 83690; 83735; 83880; 84133; 84300; 84484; 85025; 85027; 85610; 85730; 86022; 86850; 86900; 86901; 93005; 93010; 93306-TC; 93970-TC; 94640; 97116-GP; 97161-GP; 99284-25; J1644

== ENCOUNTER 2017-05-03 12:49 | Inpatient (IN) | payer OTHER ==
[2017-05-03 13:13] VITALS: BMI 43.8
[2017-05-03 13:46] LABS: MCH 35.9 pg (25.7-33.7); MCHC 32.6 g/dl (32.0-36.0); MEAN CELL VOLUME 109.9 fl (80-96); MEAN PLT VOLUME 10.3 fl (7.5-11.1); PLATELET COUNT 93 K/MM3 (134-434); RDW 16.6 % (11.6-15.6); WHITE BLOOD COUNT 4.5 K/mm3 (4.0-10.0)
[2017-05-03 14:09] LABS: ALBUMIN 2.6 g/dl (3.4-5.0); ANION GAP 9 (8-16); CALCIUM 8.7 mg/dL (8.5-10.1); CO2 26 mmol/L (21-32); COCKROFT - GAULT 59.1345; CREATININE 1.8 mg/dL (0.55-1.02); GLUCOSE,RANDOM 103 mg/dL (74-106); SGOT/AST 38 U/L (15-37); SGPT/ALT 19 U/L (12-78)
[2017-05-03 14:13] LABS: ALK PHOS 96 U/L (45-117); TOT PROT 6.1 g/dl (6.4-8.2); TROPONIN I < 0.02 ng/ml (0.00-0.05)
--- NOTE | 2017-05-03 14:20 | PDOC ---
History of Present Illness - General History Source: Patient Exam Limitations: No Limitations - History of Present Illness Initial Comments: 05/03/17 14:25 The patient is a 71-year-old woman, from [facility], with a significant past medical history of anemia, hypertension, alcoholic cirrhosis, chronic obstructive pulmonary disease and lymphedema, who presents to the emergency department for chest pain. As per EMS, patient was noted to complain of chest pain and received both Nitroglycerin and Aspirin en route. Upon patient interview, the patient states that she does not know where she is and she is asymptomatic. She reports no pain, cough, shortness of breath, leg pain, arm pain, weakness. She states that she feels great. HPI is limited. Allergies: No Known Drug Allergies Past Surgical History: None reported Social History: Former smoker. History of alcoholic cirrhosis. <Lilli Spivey - Last Filed: 05/03/17 16:26> <Kristen Nichole - Last Filed: 05/04/17 10:02> - General Chief Complaint: Chest Pain Stated Complaint: CHEST PAIN Time Seen by Provider: 05/03/17 14:02 Past History <Lilli Spivey - Last Filed: 05/03/17 16:26> - Past Medical History Anemia: Yes HTN: Yes Psychiatric Problems: Yes Other medical history: lymphedema - Psycho/Social/Smoking Cessation Hx Suicidal Ideation: No Smoking History: Former smoker Have you smoked in the past 12 months: No If you are a former smoker, when did you quit?: many years ago Information on smoking cessation initiated: No Hx Alcohol Use: Yes Drug/Substance Use Hx: No <Kristen Nichole - Last Filed: 05/04/17 10:02> - Past Medical History Allergies/Adverse Reactions: Allergies Allergy/AdvReac Type Severity Reaction Status Date / Time No Known Allergies Allergy Verified 04/06/17 01:40 Home Medications: Ambulatory Orders Citalopram Hydrobromide [Celexa -] 40 mg PO DAILY 04/06/17 Lorazepam 1 mg PO TID 04/06/17 Metoprolol Succinate [Toprol XL -] 25 mg PO DAILY 04/06/17 Zolpidem Tartrate 10 mg PO HS 04/06/17 Oxycodone HCl [Roxicodone -] 5 mg PO Q6H #20 tablet MDD 4 04/11/17 Amlodipine Besylate/Benazepril [Lotrel 2.5-10 mg Capsule] 1 each PO DAILY Ascorbate Calcium [Vitamin C] 500 mg PO DAILY 05/03/17 Docusate Sodium [Colace -] 100 mg PO HS 05/03/17 Dorzolamide HCl [Trusopt 2%] 1 drop BID 05/03/17 Ferrous Sulfate 325 mg PO BID 05/03/17 Furosemide 20 mg PO DAILY 05/03/17 Heparin - 5,000 unit SQ BID 05/03/17 Ibuprofen [Advil -] 200 mg PO QID PRN 05/03/17 Latanoprost 0.005% Eye Drops [Xalatan 0.005% Eye Drops -] 1 drop OU HS 05/03/17 Nystatin Ointment [Mycostatin Ointment -] 1 applic TP BID 05/03/17 Oxycodone Sr [Oxycontin] 10 mg PO DAILY PRN 05/03/17 Petrolatum,White/Lanolin [Vitamin A & D Ointment] 454 gm TP BID 05/03/17 Polyethylene Glycol 3350 [Miralax (For Daily Use) -] 17 gm PO DAILY 05/03/17 Review of Systems - Review of Systems Able to Perform ROS?: No <Lilli Spivey - Last Filed: 05/03/17 16:26> *Physical Exam - Vital Signs Last Vital Signs Temp Pulse Resp BP Pulse Ox 100.5 F H 68 24 111/51 99 05/03/17 13:03 05/03/17 13:03 05/03/17 13:03 05/03/17 13:03 05/03/17 13:03 - Physical Exam Comments: 05/03/17 14:25 <Lilli Spivey - Last Filed: 05/03/17 16:26> - Vital Signs Last Vital Signs Temp Pulse Resp BP Pulse Ox 100.5 F H 68 24 111/51 99 05/03/17 13:03 05/03/17 13:03 05/03/17 13:03 05/03/17 13:03 05/03/17 13:03 - Physical Exam Comments: GENERAL: Awake, alert, and oriented to person, in no acute distress HEAD: No signs of trauma EYES: PERRLA, EOMI, sclera anicteric, conjunctiva clear ENT: Auricles normal inspection, hearing grossly normal, nares patent, oropharynx clear without exudates. Dry mucosa NECK: Normal ROM, supple, no lymphadenopathy, JVD, or masses LUNGS: Breath sounds equal, clear to auscultation bilaterally. No wheezes, and no crackles HEART: Regular rate and rhythm, normal S1 and S2, no murmurs, rubs or gallops ABDOMEN: Soft, nontender, normoactive bowel sounds. No guarding, no rebound. No masses EXTREMITIES: RUE in sling with splint. Remainder of extremities with normal range of motion. 3+ pitting edema to legs B/L. No clubbing or cyanosis. No cords , erythema, or tenderness NEUROLOGICAL: Cranial nerves II through XII grossly intact. Normal speech. Motor and sensation intact. SKIN: Warm, Dry, normal turgor, no rashes or lesions noted. <Kristen Nichole - Last Filed: 05/04/17 10:02> ED Treatment Course - LABORATORY CBC & Chemistry Diagram: 05/03/17 13:06 05/03/17 13:06 - ADDITIONAL ORDERS Additional order review: Laboratory Results 05/03/17 13:06 Sodium 145 Potassium 4.8 Chloride 110 H Carbon Dioxide 26 Anion Gap 9 BUN 39 H D Creatinine 1.8 H D Creat Clearance w eGFR 27.90 Random Glucose 103 Calcium 8.7 Total Bilirubin 1.0 D AST 38 H D ALT 19 D Alkaline Phosphatase 96 D Creatine Kinase 82 Troponin I < 0.02 Total Protein 6.1 L Albumin 2.6 L 05/03/17 13:06 RBC 2.81 L D MCV 109.9 H MCHC 32.6 RDW 16.6 H D MPV 10.3 Neutrophils % Y Lymphocytes % Y <Lilli Spivey - Last Filed: 05/03/17 16:26> - LABORATORY CBC & Chemistry Diagram: 05/04/17 06:00 05/04/17 06:34 - ADDITIONAL ORDERS Additional order review: Laboratory Results 05/03/17 13:06 Sodium 145 Potassium 4.8 Chloride 110 H Carbon Dioxide 26 Anion Gap 9 BUN 39 H D Creatinine 1.8 H D Creat Clearance w eGFR 27.90 Random Glucose 103 Calcium 8.7 Total Bilirubin 1.0 D AST 38 H D ALT 19 D Alkaline Phosphatase 96 D Creatine Kinase 82 Troponin I < 0.02 Total Protein 6.1 L Albumin 2.6 L 05/03/17 13:06 RBC 2.81 L D MCV 109.9 H MCHC 32.6 RDW 16.6 H D MPV 10.3 Neutrophils % Y Lymphocytes % Y - RADIOLOGY Radiology Studies Ordered: Category Date Time Status CHEST X-RAY PORTABLE* [RAD] Stat Radiology 05/03/17 13:03 Taken <Kristen Nichole - Last Filed: 05/04/17 10:02> Medical Decision Making - Medical Decision Making 05/03/17 18:31 Case d/w hospitalist. Pt presented with fever, AMS. Only finding so far is 1+ LE in urine with elevated WBC. Will treat with rocephin. I will add ammonia level in light of prior history of alcohol abuse. Will also obtain CTH. <Kristen Nichole - Last Filed: 05/04/17 10:02> *DC/Admit/Observation/Transfer - Attestations Scribe Attestion: 05/03/17 14:25 Documentation prepared by Lilli Spivey, acting as medical laboratory manager for Kristen Nichole MD. <Lilli Spivey - Last Filed: 05/03/17 16:26> - Discharge Dispostion Admit: Yes <Kristen Nichole - Last Filed: 05/04/17 10:02> Diagnosis at time of Disposition: Fever Qualifiers: Fever type: unspecified Qualified Code(s): R50.9 - Fever, unspecified Altered mental status Qualifiers: Altered mental status type: unspecified Qualified Code(s): R41.82 - Altered mental status, unspecified - Discharge Dispostion Condition at time of disposition: Stable
[2017-05-03 14:21] LABS: INR 1.2 (0.82-1.09); PROTHROMBIN TIME (PATIENT) 13.2 SEC (9.98-11.88)
[2017-05-03] MEDS ORDERED: ACETAMINOPHEN 325 MG TABLET (FP) PO ONE (14:22)
[2017-05-03] MEDS ORDERED: ACETAMINOPHEN 325 MG TABLET (FP) ONE ×2 (14:36→14:39)
--- NOTE | 2017-05-03 15:20 | EKG ---
Test Reason : Blood Pressure : / mmHG Vent. Rate : 067 BPM Atrial Rate : 067 BPM P-R Int : 152 ms QRS Dur : 082 ms QT Int : 432 ms P-R-T Axes : 017 022 029 degrees QTc Int : 456 ms NORMAL SINUS RHYTHM LOW VOLTAGE QRS BORDERLINE ECG WHEN COMPARED WITH ECG OF 06-APR-2017 05:27, T WAVE AMPLITUDE HAS DECREASED IN ANTERIOR LEADS Confirmed by CLARITA BUNN MD ([id number]) on 05/03/2017 3:20:22 PM Referred By: Confirmed By:CLARITA BUNN MD
[2017-05-03 16:00] LABS: URINE APPEARANCE CLEAR; URINE BILIRUBIN NEGATIVE (NEGATIVE); URINE COLOR LTYELLOW; URINE GLUCOSE (UA) NEGATIVE (NEGATIVE); URINE KETONE NEGATIVE (NEGATIVE); URINE NITRITE NEGATIVE (NEGATIVE); URINE PROTEIN NEGATIVE (NEGATIVE); URINE UROBILINOGEN NEGATIVE E.U./dl (0.2-1.0)
[2017-05-03 17:18] LABS: URINE BLOOD 2+ (NEGATIVE); URINE LEUK ESTERASE 1+ (NEGATIVE)
[2017-05-03 17:22] LABS: URINE HYALINE CAST 3 /lpf; URINE RBC 8 /hpf (0-3); URINE WBC 12 /hpf (3-5)
[2017-05-03] MEDS ORDERED: CEFTRIAXONE 1 GM in DEXTROSE 5%-WATER - 50 ML IVPB ONE (18:28)
[2017-05-03] MEDS ORDERED: CEFTRIAXONE 50 ML ONE (18:57)
--- NOTE | 2017-05-03 19:19 | PN ---
<Michael Zaidict - Last Filed: 05/03/17 19:19> Teaching Attending Note Name of Resident: Ace Wilburn ATTENDING PHYSICIAN STATEMENT I saw and evaluated the patient. I reviewed the resident's note and discussed the case with the resident. I agree with the resident's findings and plan as documented. SUBJECTIVE: OBJECTIVE: ASSESSMENT AND PLAN: <Doretha Bean - Last Filed: 05/03/17 20:21> Teaching Attending Note ATTENDING PHYSICIAN STATEMENT I saw and evaluated the patient. I reviewed the resident's note and discussed the case with the resident. I agree with the resident's findings and plan as documented. SUBJECTIVE: 71 year old female from [facility] with pmhx of anemia, hypertension, alcoholic cirrhosis, chronic obstructive pulmonary disease and lymphedema who presents to the ED with chest pain. Upon arrival of EMS patient was given nitroglycerin and asa. She reports a cough with white phlegm. Now denies any cp, sob, lightheadedness, headache, nausea or vomiting. OBJECTIVE: VS: Last Vital Signs Temp Pulse Resp BP Pulse Ox 100.5 F H 64 18 107/84 100 05/03/17 13:03 05/03/17 15:40 05/03/17 15:40 05/03/17 15:40 05/03/17 15:40 GEN: NAD HEENT: NCAT, PERRL CARD: RRR, S1 S2 RESP: CTAB ABD: NT, BWS x4 EXT: - [facility] LABS: CBCD WBC 4.5 K/mm3 (4.0-10.0) 05/03/17 13:06 RBC 2.81 M/mm3 (3.60-5.2) L D 05/03/17 13:06 Hgb 10.1 GM/dL (10.7-15.3) L D 05/03/17 13:06 Hct 30.9 % (32.4-45.2) L D 05/03/17 13:06 MCV 109.9 fl (80-96) H 05/03/17 13:06 MCHC 32.6 g/dl (32.0-36.0) 05/03/17 13:06 RDW 16.6 % (11.6-15.6) H D 05/03/17 13:06 Plt Count 93 K/MM3 (134-434) L 05/03/17 13:06 MPV 10.3 fl (7.5-11.1) 05/03/17 13:06 CMP Sodium 145 mmol/L (136-145) 05/03/17 13:06 Potassium 4.8 mmol/L (3.5-5.1) 05/03/17 13:06 Chloride 110 mmol/L (98-107) H 05/03/17 13:06 Carbon Dioxide 26 mmol/L (21-32) 05/03/17 13:06 Anion Gap 9 (8-16) 05/03/17 13:06 BUN 39 mg/dL (7-18) H D 05/03/17 13:06 Creatinine 1.8 mg/dL (0.55-1.02) H D 05/03/17 13:06 Creat Clearance w eGFR 27.90 (>60) 05/03/17 13:06 Calcium 8.7 mg/dL (8.5-10.1) 05/03/17 13:06 Total Bilirubin 1.0 mg/dL (0.2-1.0) D 05/03/17 13:06 AST 38 U/L (15-37) H D 05/03/17 13:06 ALT 19 U/L (12-78) D 05/03/17 13:06 Alkaline Phosphatase 96 U/L (45-117) D 05/03/17 13:06 Total Protein 6.1 g/dl (6.4-8.2) L 05/03/17 13:06 Albumin 2.6 g/dl (3.4-5.0) L 05/03/17 13:06 IMAGING: CT Chest w/o contrast: FINDINGS: There is a large pleural based mass within the periphery of the right lower chest. The mass does extend to the right hemidiaphragm. The mass measures by 7.2 x 4.5 x 6.5 cm. The etiology of the mass is uncertain and a malignancy cannot be excluded. An empyema could also present similarly. No additional pulmonary masses are identified. There are atelectatic changes within the right lower lobe with a small amount of right pleural fluid. The left lung is largely clear with a trace amount of left pleural fluid. Examination of the mediastinum demonstrates no evidence of mediastinal masses, fluid collections or lymphadenopathy. The heart is not significantly enlarged. Evaluation of the upper abdomen demonstrates hepatic irregularity suspicious for advanced hepatocellular disease. The gallbladder is mildly distended and does contain calculi. There is no evidence of acute bony abnormalities. IMPRESSION: 1. Large pleural-based right lower lobe mass. Neoplastic and infectious etiologies should be considered. 2. Right basilar atelectasis and pleural fluid. 3. Findings suspicious for cirrhosis. 4. Cholelithiasis. Please see above discussion. Reported By: Micky Yeh MD 05/03/17 1513 ASSESSMENT AND PLAN: 71 year old female with pmhx of anemia, hypertension, alcoholic cirrhosis, chronic obstructive pulmonary disease and lymphedema presents with AMS found to have R lower lobe mass and UTI. 1. AMS -Differential hepatic encephalopathy vs UTI -Ammonia level elevated lactulose -Treat UTI with ceftriaxone -U culture -CT head negative 2. UTI -U culture -Ceftriaxone 3. Right lower lobe mass -?pneumonia -Azithromycin -Ceftriaxone 4.Macrocytic anemia -B12 folatte 5.CKD -creatinine at baseline -Avoid nephrotoxins 6.Dvt ppx -Moderate risk -Heparin [address] in med surg Documentation prepared by Doretha Bean, acting as medical equipment repairer for Lindsay Zadii D.O.
[2017-05-03 19:41] LABS: PLATELET ESTIMATE DECREASED (NORMAL); SPHEROCYTE 1+
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
[2017-05-03] MEDS ORDERED: AZITHROMYCIN IVPB 500 MG in DEXTROSE 5%-WATER - 250 ML IVPB SCH (20:15)
[2017-05-03] MEDS ORDERED: AZITHROMYCIN IVPB 250 ML IVPB ONE (20:25)
[2017-05-03 20:31] LABS: URINE MARIJUANA THC NEGATIVE ng/ml (CUTOFF=50)
[2017-05-03] MEDS ORDERED: LACTULOSE 20 GM/30 ML UDC (FOR ORAL USE ONLY) ONE (22:05)
[2017-05-03] MEDS: LACTULOSE 20 GM/30 ML UDC (FOR ORAL USE ONLY) PO SCH (22:12)
[2017-05-03] MEDS ORDERED: oxyCODONE HCL 5 MG TABLET ONE (23:02)
[2017-05-03] MEDS: oxyCODONE HCL 5 MG TABLET PO PRN (23:05)
[2017-05-04] MEDS ORDERED: HEPARIN NA (PORCINE) 5,000 UNITS/ML 1ML VIAL ONE (02:51)
[2017-05-04] MEDS: HEPARIN NA (PORCINE) 5,000 UNITS/ML 1ML VIAL SQ SCH ×4 (03:48→22:32)
[2017-05-04] MEDS ORDERED: LORazepam 1 MG TABLET PO SCH (06:00)
[2017-05-04] MEDS ORDERED: LACTULOSE 20 GM/30 ML UDC (FOR ORAL USE ONLY) ONE (06:38)
[2017-05-04] MEDS: LACTULOSE 20 GM/30 ML UDC (FOR ORAL USE ONLY) PO SCH ×3 (06:41→22:32)
[2017-05-04 07:38] LABS: BASOPHIL 0.4 % (0-2.0); EOSINOPHIL 13.5 % (0-4.5); MCH 38.1 pg (25.7-33.7); MCHC 33.3 g/dl (32.0-36.0); MEAN CELL VOLUME 114.2 fl (80-96); MEAN PLT VOLUME 9.9 fl (7.5-11.1); NEUTROPHILS 47.5 % (42.8-82.8); PLATELET COUNT 80 K/MM3 (134-434); RDW 16.1 % (11.6-15.6); WHITE BLOOD COUNT 3.5 K/mm3 (4.0-10.0)
[2017-05-04 08:02] LABS: ALBUMIN 2.9 g/dl (3.4-5.0); ANION GAP 9 (8-16); CALCIUM 8.9 mg/dL (8.5-10.1); CO2 27 mmol/L (21-32); COCKROFT - GAULT 66.5295; CREATININE 1.6 mg/dL (0.55-1.02); GLUCOSE,RANDOM 97 mg/dL (74-106); SGOT/AST 36 U/L (15-37); SGPT/ALT 18 U/L (12-78)
[2017-05-04 08:12] LABS: ALK PHOS 94 U/L (45-117); BILIRUBIN,TOTAL 1.1 mg/dL (0.2-1.0); THYROID STIMULATING HORMONE 4.85 uIU/ml (0.358-3.74); TOT PROT 6.2 g/dl (6.4-8.2); TROPONIN I < 0.02 ng/ml (0.00-0.05)
[2017-05-04] MEDS ORDERED: [UNRECOGNIZED DRUG - OTHER] PO SCH (10:00)
[2017-05-04] MEDS ORDERED: BENAZEPRIL PO SCH (10:00)
[2017-05-04] MEDS ORDERED: POLYETHYLENE GLYCOL 3350 119 GM BTL PO SCH (10:00)
[2017-05-04] MEDS ORDERED: AMLODIPINE BESYLATE PO SCH (10:00)
[2017-05-04] MEDS: CITALOPRAM HYDROBROMIDE 20 MG TABLET (FP) PO SCH (10:23)
[2017-05-04] MEDS: FUROSEMIDE 20 MG TABLET (FP) PO SCH (10:24)
[2017-05-04] MEDS: NYSTATIN 100000 UNIT/GM TOPICAL OINTMENT 15 GM TUBE TP SCH ×2 (10:25→22:35)
[2017-05-04] MEDS: amLODIPine BESYLATE 2.5 MG TABLET (FP) PO SCH (10:26)
[2017-05-04] MEDS: METOPROLOL SUCCINATE 25 MG TAB.SR.24H (FP) PO SCH (10:26)
[2017-05-04] MEDS: LISINOPRIL 10 MG TABLET (FP) PO SCH (10:26)
[2017-05-04] MEDS: DORZOLAMIDE 2% HCL OPHTHALMIC SOLUTION 10 ML BOTTLE OU SCH ×2 (10:27→22:35)
[2017-05-04] MEDS: AZITHROMYCIN IVPB 250 ML IVPB SCH (12:20)
--- NOTE | 2017-05-04 13:51 | CON.PULM ---
Consult Consult Specialty:: PULMONARY Referred by:: Dr. Wilburn Reason for Consultation:: lung mass - History of Present Illness Chief Complaint: chest pain History of Present Illness: 71yo female with h/o HTN, COPD, former smoker, lymphedema, alcoholic cirrhosis who was sent from short term rehab for chest pain. She was recently discharged after an admission for right humeral fracture and alcohol detox. She denies any shortness of breath or wheezing but does have a cough productive of white sputum. No fevers, chills or sweats. Denies any unintentional weight loss. CT chest done on admission showing a large right sided mass. Mass was seen on last admission on CXR but not worked up. She is a former smoker started in her 30s and quit in 1996. No family history of lung cancer. - History Source History Provided By: Patient, Medical Record Limitations to Obtaining History: Clinical Condition - Past Medical History Cardio/Vascular: Yes: HTN Pulmonary: Yes: COPD - Alcohol/Substance Use Hx Alcohol Use: Yes - Smoking History Smoking history: Former smoker Have you smoked in the past 12 months: No If you are a former smoker, when did you quit?: many years ago Home Medications - Allergies Allergies/Adverse Reactions: Allergies Allergy/AdvReac Type Severity Reaction Status Date / Time No Known Allergies Allergy Verified 04/06/17 01:40 - Home Medications Home Medications: Ambulatory Orders Citalopram Hydrobromide [Celexa -] 40 mg PO DAILY 04/06/17 Lorazepam 1 mg PO TID 04/06/17 Metoprolol Succinate [Toprol XL -] 25 mg PO DAILY 04/06/17 Zolpidem Tartrate 10 mg PO HS 04/06/17 Oxycodone HCl [Roxicodone -] 5 mg PO Q6H #20 tablet MDD 4 04/11/17 Amlodipine Besylate/Benazepril [Lotrel 2.5-10 mg Capsule] 1 each PO DAILY Ascorbate Calcium [Vitamin C] 500 mg PO DAILY 05/03/17 Docusate Sodium [Colace -] 100 mg PO HS 05/03/17 Dorzolamide HCl [Trusopt 2%] 1 drop BID 05/03/17 Ferrous Sulfate 325 mg PO BID 05/03/17 Furosemide 20 mg PO DAILY 05/03/17 Heparin - 5,000 unit SQ BID 05/03/17 Ibuprofen [Advil -] 200 mg PO QID PRN 05/03/17 Latanoprost 0.005% Eye Drops [Xalatan 0.005% Eye Drops -] 1 drop OU HS 05/03/17 Nystatin Ointment [Mycostatin Ointment -] 1 applic TP BID 05/03/17 Oxycodone Sr [Oxycontin] 10 mg PO DAILY PRN 05/03/17 Petrolatum,White/Lanolin [Vitamin A & D Ointment] 454 gm TP BID 05/03/17 Polyethylene Glycol 3350 [Miralax (For Daily Use) -] 17 gm PO DAILY 05/03/17 Family Disease History - Family Disease History Other Family History: denies lung cancer Review of Systems - Review of Systems Constitutional: denies: Chills, Fever, Weakness Eyes: denies: Recent Change in Vision HENT: denies: Nasal Congestion, Throat Pain Neck: denies: Stiffness, Tenderness Cardiovascular: reports: Chest Pain. denies: Palpitations, Shortness of Breath Respiratory: reports: Cough. denies: Hemoptysis, SOB on Exertion, Wheezing Gastrointestinal: denies: Abdominal Pain, Constipation, Nausea, Vomiting Genitourinary: denies: Dysuria, Hematuria Neurological: denies: Dizziness, Headache Endocrine: denies: Unexplained Weight Loss Physical Exam Vital Sings: Vital Signs Temperature 97.8 F 05/04/17 09:20 Pulse Rate 67 05/04/17 09:20 Respiratory Rate 19 05/04/17 09:20 Blood Pressure 138/63 05/04/17 09:20 O2 Sat by Pulse Oximetry (%) 97 05/04/17 05:00 Constitutional: Yes: Anxious Eyes: Yes: Conjunctiva Clear, EOM Intact HENT: Yes: Atraumatic, Normocephalic Neck: Yes: Supple, Trachea Midline Cardiovascular: Yes: Regular Rate and Rhythm Respiratory: Yes: Diminished (distant breath sounds) ...Clubbing: No Gastrointestinal: Yes: Normal Bowel Sounds, Soft, Abdomen, Obese. No: Tenderness Edema: Yes Neurological: Yes: Alert Labs: CBC, BMP 05/04/17 06:00 05/04/17 06:34 Imaging - Results Cat Scan: Report Reviewed, Image Reviewed (large right pleural based mass) Problem List - Problems (1) Lung mass Code(s): R91.8 - OTHER NONSPECIFIC ABNORMAL FINDING OF LUNG FIELD (2) Chest pain Code(s): R07.9 - CHEST PAIN, UNSPECIFIED (3) Alcoholic cirrhosis Code(s): K70.30 - ALCOHOLIC CIRRHOSIS OF LIVER WITHOUT ASCITES Qualifiers: Ascites presence: without ascites Qualified Code(s): K70.30 - Alcoholic cirrhosis of liver without ascites (4) COPD (chronic obstructive pulmonary disease) Code(s): J44.9 - CHRONIC OBSTRUCTIVE PULMONARY DISEASE, UNSPECIFIED Qualifiers : COPD type: emphysema Emphysema type: unspecified Qualified Code( s): J43.9 - Emphysema, unspecified (5) HTN (hypertension) Code(s): I10 - ESSENTIAL (PRIMARY) HYPERTENSION Qualifiers: Hypertension type: essential hypertension Qualified Code(s): I10 - Essential (primary) hypertension Assessment/Plan Chest Pain Lung Mass suspicious for malignancy COPD Former Smoker HTN Alcoholic Cirrhosis - will need CT guided lung biopsy - inhaled bronchodilators - O2 to keep SpO2 >90% - further recommendations after biopsy - will need PFTs, PET scan as outpt - DVT prophylaxis Thank you for this consult Kenrick Cotto MD
[2017-05-04] MEDS: CEFTRIAXONE 50 ML IVPB SCH (14:29)
--- NOTE | 2017-05-04 16:59 | PN ---
<Mohan Mccartney - Last Filed: 05/04/17 23:11> Physical Exam: SUBJECTIVE: Patient seen and examined at bedside. Confused and disoriented. OBJECTIVE: Vital Signs Period Temp Pulse Resp BP Sys/Mccarty Pulse Ox Last 24 Hr 97.8 F-98.4 F 60-89 18-22 113-140/61-71 97-97 GENERAL: AAO x 1, confused and lethargic HEAD: AT/NC. EYES: PERRL, EOMI, sclera anicteric, conjunctiva clear. No ptosis. ENT:Dry mucous membranes. NECK: supple, no jvd LUNGS: diminished breath sounds. HEART: RRR ABDOMEN: Soft,obese, nontender, nondistended, normoactive bowel sounds, no guarding, no rebound EXTREMITIES: RUE casted , NVI,2+ pulses, warm, well-perfused, 2+ LE edema. NEUROLOGICAL: lethargic , gait not observed. Laboratory Results - last 24 hr 05/03/17 05/04/17 05/04/17 19:29 06:00 06:34 WBC 3.5 L RBC 2.64 L Hgb 10.1 L Hct 30.2 L MCV 114.2 H MCHC 33.3 RDW 16.1 H Plt Count 80 L MPV 9.9 Neutrophils % 47.5 Lymphocytes % 26.5 D Monocytes % 12.1 H D Eosinophils % 13.5 H Basophils % 0.4 Sodium 147 H Potassium 4.4 Chloride 111 H Carbon Dioxide 27 Anion Gap 9 BUN 36 H Creatinine 1.6 H Creat Clearance w eGFR 31.96 Random Glucose 97 Lactic Acid Calcium 8.9 Total Bilirubin 1.1 H AST 36 ALT 18 Alkaline Phosphatase 94 Troponin I < 0.02 Total Protein 6.2 L Albumin 2.9 L Vitamin B12 Serum Folate TSH 4.85 H Opiates Screen Negative Methadone Screen Negative Barbiturate Screen Negative Phencyclidine Screen Negative Ur Amphetamines Screen Negative MDMA (Ecstasy) Screen Negative Benzodiazepines Screen Positive Cocaine Screen Negative U Marijuana (THC) Screen Negative 05/04/17 05/04/17 05/04/17 06:45 06:45 09:37 WBC RBC Hgb Hct MCV MCHC RDW Plt Count MPV Neutrophils % Lymphocytes % Monocytes % Eosinophils % Basophils % Sodium Potassium Chloride Carbon Dioxide Anion Gap BUN Creatinine Creat Clearance w eGFR Random Glucose Lactic Acid 1.6 Calcium Total Bilirubin AST ALT Alkaline Phosphatase Troponin I Cancelled Total Protein Albumin Vitamin B12 1060 H Serum Folate 19 H D TSH Opiates Screen Methadone Screen Barbiturate Screen Phencyclidine Screen Ur Amphetamines Screen MDMA (Ecstasy) Screen Benzodiazepines Screen Cocaine Screen U Marijuana (THC) Screen Active Medications Generic Name Dose Route Start Last Admin Trade Name Shankarq PRN Reason Stop Dose Admin Amlodipine Besylate 2.5 mg 05/04/17 10:00 05/04/17 10:26 Norvasc - PO 2.5 mg DAILY JACOB Administration Citalopram Hydrobromide 40 mg 05/04/17 10:00 05/04/17 10:23 Celexa - PO 40 mg DAILY JACOB Administration Dorzolamide HCl 1 drop 05/04/17 10:00 05/04/17 10:27 Trusopt 2% OU Not Given BID JACOB Furosemide 20 mg 05/04/17 10:00 05/04/17 10:24 Lasix - PO 20 mg DAILY JACOB Administration Heparin Sodium (Porcine) 5,000 unit 05/03/17 23:30 05/04/17 14:29 Heparin - SQ 5,000 unit TID JACOB Administration Ceftriaxone Sodium 50 mls @ 100 mls/hr 05/04/17 10:00 05/04/17 14:29 Rocephin 1gm Ivpb (Pre-Docked) IVPB 100 mls/hr DAILY JACOB Administration Azithromycin 250 mls @ 250 mls/hr 05/04/17 10:00 05/04/17 12:20 Zithromax 500mg Ivpb (Pre-Docked) IVPB 250 mls/hr DAILY JACOB Administration Lactulose 20 gm 05/03/17 22:00 05/04/17 14:29 Cephulac (Oral Use) PO 20 gm TID JACOB Administration Latanoprost 1 drop 05/04/17 22:00 Xalatan 0.005% Eye Drops - OU HS JACOB Lisinopril 10 mg 05/04/17 10:00 05/04/17 10:26 Prinivil PO 10 mg DAILY JACOB Administration Metoprolol Succinate 25 mg 05/04/17 10:00 05/04/17 10:26 Toprol Xl - PO 25 mg DAILY JACOB Administration Nystatin 1 applic 05/04/17 10:00 05/04/17 10:25 Mycostatin Ointment - TP Not Given BID JACOB Oxycodone HCl 5 mg 05/03/17 22:43 05/03/17 23:05 Roxicodone - PO 5 mg Q6H PRN Administration PAIN IMAGING: * CXR: Mass-like density at R base. Previous fracture at R humerus unchanged since 04/06/17 * Chest CT: 1. Large pleural-based right lower lobe mass. Neoplastic and infectious etiologies should be considered. 2. Right basilar atelectasis and pleural fluid. 3. Findings suspicious for cirrhosis. 4. Cholelithiasis. The mass measures by 7.2 x 4.5 x 6.5 cm. The etiology of the mass is uncertain and a malignancy cannot be excluded * Head CT: No evidence of acute intracranial pathology or significant change ASSESSMENT/PLAN: 71 y/o F w/PMH of anemia, hypertension, alcoholic cirrhosis, COPD, and lymphedema [facility] Problem List - Problems (1) Altered mental status Assessment/Plan: * Hepatic encephalopathy most likely;lactulose 20 g po tid * UA reveled esterase and WBC- empiric Ceftriaxone;culture pending. * Head CT - no acute intracranial pathology * Utox was positive for benzo- take lorazepam * Repeat labs in AM (2) Lung mass Assessment/Plan: * Seen by pulmonary * CT guided biopsy pending. * RLL possible PNA ; empiric Ceftriaxone and Azithromycin * Oncology consult. (3) Closed right humeral fracture Assessment/Plan: * No surgical intervention planned * remains casted and immobile * Neurovascularly intact. * Pain control with Oxycodone. (4) Alcoholic cirrhosis (5) COPD (chronic obstructive pulmonary disease) Assessment/Plan: * Continue * Tudorza 1 puff IH BID * Duonebs PRN * supplemental O2 via NC maintain SpO2 >92% * Aspiration precautions. (6) HTN (hypertension) Assessment/Plan: * Amlodipine 2.5 mg po daily * lisinopril 10mg PO daily * Metoprolol 25mg Daily (7) Serum ammonia increased Assessment/Plan: * Lactulose 20mg BID titrate to 3 loose BM's/day * repeat ammonia in am * Neuro checks. (8) DVT prophylaxis Assessment/Plan: * Heparin 5000 units SQ TID * SCD's bilat. Visit type - Emergency Visit Emergency Visit: Yes ED Registration Date: 05/03/17 Care time: The patient presented to the Emergency Department on the above date and was hospitalized for further evaluation of their emergent condition. - New Patient This patient is new to me today: Yes Date on this admission: 05/04/17 - Critical Care Critical Care patient: No - Discharge Referral Referred to [facility] No <Karmen Myrick - Last Filed: 05/05/17 15:53> Physical Exam: SUBJECTIVE: Patient seen and examined ASSESSMENT/PLAN: [place] was seen and evaluated by the bedside. C/o mild SOB appears disoriented VS are stable P/E is significant for R arm in a splint , vasc intact RLE ankle wound , not infected poor air entry b/l lung bases morbid obesity Labs are reviewed Agree with plan
[2017-05-04] MEDS ORDERED: PT OWN MED DRAWER 7, Y5N ONE (21:19)
[2017-05-04] MEDS ORDERED: DOCUSATE SODIUM 100 MG CAPSULE (FP) PO SCH (22:00)
[2017-05-04] MEDS: LATANOPROST 0.005% OPHTH SOLN 2.5ML BOTTLE OU SCH (22:36)
[2017-05-05] MEDS: LACTULOSE 20 GM/30 ML UDC (FOR ORAL USE ONLY) PO SCH ×3 (06:32→22:21)
[2017-05-05] MEDS: HEPARIN NA (PORCINE) 5,000 UNITS/ML 1ML VIAL SQ SCH ×3 (06:32→22:21)
[2017-05-05 07:46] LABS: BASOPHIL 0.4 % (0-2.0); EOSINOPHIL 13.7 % (0-4.5); MCH 37.2 pg (25.7-33.7); MCHC 33.3 g/dl (32.0-36.0); MEAN CELL VOLUME 111.6 fl (80-96); MEAN PLT VOLUME 10.1 fl (7.5-11.1); NEUTROPHILS 52.1 % (42.8-82.8); PLATELET COUNT 74 K/MM3 (134-434); RDW 15.6 % (11.6-15.6); WHITE BLOOD COUNT 3.2 K/mm3 (4.0-10.0)
[2017-05-05 08:16] LABS: ALBUMIN 2.8 g/dl (3.4-5.0); CALCIUM 8.7 mg/dL (8.5-10.1); COCKROFT - GAULT 81.651; CREATININE 1.3 mg/dL (0.55-1.02); TOT PROT 6.2 g/dl (6.4-8.2)
[2017-05-05] MEDS: CEFTRIAXONE 50 ML IVPB SCH (09:33)
[2017-05-05] MEDS: amLODIPine BESYLATE 2.5 MG TABLET (FP) PO SCH (09:33)
[2017-05-05] MEDS: AZITHROMYCIN IVPB 250 ML IVPB SCH (09:33)
[2017-05-05] MEDS: LISINOPRIL 10 MG TABLET (FP) PO SCH (09:33)
[2017-05-05] MEDS: CITALOPRAM HYDROBROMIDE 20 MG TABLET (FP) PO SCH (09:33)
[2017-05-05] MEDS: FUROSEMIDE 20 MG TABLET (FP) PO SCH (09:33)
[2017-05-05] MEDS: METOPROLOL SUCCINATE 25 MG TAB.SR.24H (FP) PO SCH (09:33)
[2017-05-05] MEDS: DORZOLAMIDE 2% HCL OPHTHALMIC SOLUTION 10 ML BOTTLE OU SCH ×2 (09:37→22:21)
[2017-05-05] MEDS: NYSTATIN 100000 UNIT/GM TOPICAL OINTMENT 15 GM TUBE TP SCH ×2 (10:42→22:21)
--- NOTE | 2017-05-05 10:46 | PN ---
Progress Note (short form) - Note Progress Note: No acute events overnight. Confused. NAD on NC O2. Intake & Output 05/02/17 05/03/17 05/04/17 05/05/17 23:59 23:59 23:59 23:59 Intake Total 870 0 Balance 870 0 Weight 280 lb 279 lb 3.2 oz Last Vital Signs Temp Pulse Resp BP Pulse Ox 98.5 F 67 20 145/72 98 05/05/17 06:00 05/05/17 06:00 05/05/17 06:00 05/05/17 06:00 05/04/17 21:00 Active Medications Amlodipine Besylate (Norvasc -) 2.5 mg PO DAILY [facility] Last Admin: 05/05/17 09:33 Dose: 2.5 mg Citalopram Hydrobromide (Celexa -) 40 mg PO DAILY [facility] Last Admin: 05/05/17 09:33 Dose: 40 mg Dorzolamide HCl (Trusopt 2%) 1 drop OU BID [facility] Last Admin: 05/05/17 09:37 Dose: 1 drop Furosemide (Lasix -) 20 mg PO DAILY [facility] Last Admin: 05/05/17 09:33 Dose: 20 mg Heparin Sodium (Porcine) (Heparin -) 5,000 unit SQ TID [facility] Last Admin: 05/05/17 06:32 Dose: 5,000 unit Ceftriaxone Sodium (Rocephin 1gm Ivpb (Pre-Docked)) 50 mls @ 100 mls/hr IVPB DAILY [facility] Last Admin: 05/05/17 09:33 Dose: 100 mls/hr Azithromycin (Zithromax 500mg Ivpb (Pre-Docked)) 250 mls @ 250 mls/hr IVPB DAILY [facility] Last Admin: 05/05/17 09:33 Dose: 250 mls/hr Lactulose (Cephulac (Oral Use)) 20 gm PO TID [facility] Last Admin: 05/05/17 06:32 Dose: 20 gm Latanoprost (Xalatan 0.005% Eye Drops -) 1 drop OU HS [facility] Last Admin: 05/04/17 22:36 Dose: 1 drop Lisinopril (Prinivil) 10 mg PO DAILY [facility] Last Admin: 05/05/17 09:33 Dose: 10 mg Metoprolol Succinate (Toprol Xl -) 25 mg PO DAILY [facility] Last Admin: 05/05/17 09:33 Dose: 25 mg Nystatin (Mycostatin Ointment -) 1 applic TP BID [facility] Last Admin: 05/05/17 10:42 Dose: 1 applic Oxycodone HCl (Roxicodone -) 5 mg PO Q6H PRN PRN Reason: PAIN Last Admin: 05/03/17 23:05 Dose: 5 mg Constitutional: Yes: Awake, confused Eyes: Yes: Conjunctiva Clear, EOM Intact HENT: Yes: Atraumatic, Normocephalic Neck: Yes: Supple, Trachea Midline Cardiovascular: Yes: Regular Rate and Rhythm Respiratory: Yes: few scattered ...Clubbing: No Gastrointestinal: Yes: Normal Bowel Sounds, Soft, Abdomen, Obese. No: Tenderness Edema: Yes Neurological: Yes: Confused Labs: Laboratory Results - last 24 hr 05/04/17 05/05/17 05/05/17 09:37 06:45 06:45 WBC 3.2 L RBC 2.54 L Hgb 9.4 L Hct 28.4 L MCV 111.6 H MCHC 33.3 RDW 15.6 Plt Count 74 L MPV 10.1 Neutrophils % 52.1 Lymphocytes % 22.4 Monocytes % 11.4 H Eosinophils % 13.7 H Basophils % 0.4 Sodium 147 H Potassium 4.1 Chloride 110 H Carbon Dioxide 28 Anion Gap 9 BUN 26 H D Creatinine 1.3 H Creat Clearance w eGFR 40.61 Random Glucose 121 H D Calcium 8.7 Total Bilirubin 1.0 AST 33 ALT 18 Alkaline Phosphatase 93 Ammonia Total Protein 6.2 L Albumin 2.8 L Vitamin B12 1060 H Serum Folate 19 H D 05/05/17 06:45 WBC RBC Hgb Hct MCV MCHC RDW Plt Count MPV Neutrophils % Lymphocytes % Monocytes % Eosinophils % Basophils % Sodium Potassium Chloride Carbon Dioxide Anion Gap BUN Creatinine Creat Clearance w eGFR Random Glucose Calcium Total Bilirubin AST ALT Alkaline Phosphatase Ammonia 26.5 Total Protein Albumin Vitamin B12 Serum Folate Problem List - Problems (1) Lung mass Code(s): R91.8 - OTHER NONSPECIFIC ABNORMAL FINDING OF LUNG FIELD (2) Chest pain Code(s): R07.9 - CHEST PAIN, UNSPECIFIED (3) Alcoholic cirrhosis Code(s): K70.30 - ALCOHOLIC CIRRHOSIS OF LIVER WITHOUT ASCITES Qualifiers: Ascites presence: without ascites Qualified Code(s): K70.30 - Alcoholic cirrhosis of liver without ascites (4) COPD (chronic obstructive pulmonary disease) Code(s): J44.9 - CHRONIC OBSTRUCTIVE PULMONARY DISEASE, UNSPECIFIED Qualifiers : COPD type: emphysema Emphysema type: unspecified Qualified Code( s): J43.9 - Emphysema, unspecified (5) HTN (hypertension) Code(s): I10 - ESSENTIAL (PRIMARY) HYPERTENSION Qualifiers: Hypertension type: essential hypertension Qualified Code(s): I10 - Essential (primary) hypertension Assessment/Plan Chest Pain Lung Mass suspicious for malignancy COPD Former Smoker HTN Alcoholic Cirrhosis - CT guided lung biopsy - Inhaled bronchodilators - O2 to keep SpO2 >90% - will need PFTs, PET scan as outpatient - DVT prophylaxis - Aspirations precautions Dr Sy
--- NOTE | 2017-05-05 15:59 | PN ---
Teaching Attending Note Name of Resident: Mohan Mccartney ATTENDING PHYSICIAN STATEMENT I saw and evaluated the patient. I reviewed the resident's note and discussed the case with the resident. I agree with the resident's findings and plan as documented. SUBJECTIVE: reports improvement in SOB No acute events overnight OBJECTIVE: Vital Signs Temperature 98.9 F 05/05/17 15:26 Pulse Rate 68 05/05/17 15:26 Respiratory Rate 16 05/05/17 15:26 Blood Pressure 158/82 05/05/17 15:26 O2 Sat by Pulse Oximetry (%) 96 05/05/17 09:00 GENERAL: AAO x 1, confused and lethargic.Morbidly obese HEAD: AT/NC. EYES: PERRL, EOMI, sclera anicteric, conjunctiva clear. No ptosis. ENT:Dry mucous membranes.Poor dentition NECK: supple, no jvd LUNGS: diminished breath sounds. HEART: RRR ABDOMEN: Soft,obese, nontender, nondistended, normoactive bowel sounds, no guarding, no rebound EXTREMITIES: RUE casted ,2 plus edema , NVI,2+ pulses, warm, well-perfused, 2+ LE edema NEUROLOGICAL: cranial nerves grossly intact,gait not observed. Abnormal Lab Results 05/05/17 05/05/17 06:45 06:45 WBC 3.2 L RBC 2.54 L Hgb 9.4 L Hct 28.4 L MCV 111.6 H Plt Count 74 L Monocytes % 11.4 H Eosinophils % 13.7 H Sodium 147 H Chloride 110 H BUN 26 H D Creatinine 1.3 H Random Glucose 121 H D Total Protein 6.2 L Albumin 2.8 L ASSESSMENT AND PLAN: Chest pain - secondary to large pleural based lung mass, newly diagnosed and highly suspicious for malignancy . * planned for CT guided biopsy COPD - not in exacerbation * c/w O2 * bronchodilators * incentive spirometry Right humeral shaft fracture- managed conservatively since March 2017. Remains in the cast. Has no active ROM noted and it is unclear if she was able to participate with PT . This can complicate her recovery. * will obtain PT eval * XR to evaluate * orthopedic follow up is appreciated to advise on further plan of treatment . RLE wound * local wound care UTI - asympthomatic - on Rocephin * follow cultures History of alcoholic liver cirrhosis - complicated by pancytopenia * monitor PLT ARF- improving , likely prerenal * monitor BMP * IVF given DVT PPX * heparin sq
--- NOTE | 2017-05-05 17:42 | PN ---
Physical Exam: SUBJECTIVE: Patient seen and examined at bedside. No overnight events. No new complaints. Continued Right arm pain. Denies CP, TEJADA, SOB, palpitations, abd.pain, N/V. OBJECTIVE: Vital Signs Period Temp Pulse Resp BP Sys/Mccarty Pulse Ox Last 24 Hr 98.1 F-99.5 F 64-80 16-22 97-158/36-82 96-98 GENERAL: AAO x 1, Awake but confused HEAD: AT/NC. EYES: PERRL, EOMI, sclera anicteric, conjunctiva clear. No ptosis. ENT:Dry mucous membranes. NECK: supple, no jvd LUNGS: diminished breath sounds. HEART: RRR ABDOMEN: Soft,obese, nontender, nondistended, normoactive bowel sounds, no guarding, no rebound EXTREMITIES: RUE casted , NVI,2+ pulses, warm, well-perfused, 3+ LE edema. NEUROLOGICAL:Awake and responsive, gait not observed Laboratory Results - last 24 hr 05/05/17 05/05/17 05/05/17 06:45 06:45 06:45 WBC 3.2 L RBC 2.54 L Hgb 9.4 L Hct 28.4 L MCV 111.6 H MCHC 33.3 RDW 15.6 Plt Count 74 L MPV 10.1 Neutrophils % 52.1 Lymphocytes % 22.4 Monocytes % 11.4 H Eosinophils % 13.7 H Basophils % 0.4 Sodium 147 H Potassium 4.1 Chloride 110 H Carbon Dioxide 28 Anion Gap 9 BUN 26 H D Creatinine 1.3 H Creat Clearance w eGFR 40.61 Random Glucose 121 H D Calcium 8.7 Total Bilirubin 1.0 AST 33 ALT 18 Alkaline Phosphatase 93 Ammonia 26.5 Total Protein 6.2 L Albumin 2.8 L Active Medications Generic Name Dose Route Start Last Admin Trade Name Freq PRN Reason Stop Dose Admin Amlodipine Besylate 2.5 mg 05/04/17 10:00 05/05/17 09:33 Norvasc - PO 2.5 mg DAILY [facility] Administration Citalopram Hydrobromide 40 mg 05/04/17 10:00 05/05/17 09:33 Celexa - PO 40 mg DAILY [facility] Administration Dorzolamide HCl 1 drop 05/04/17 10:00 05/05/17 09:37 Trusopt 2% OU 1 drop BID [facility] Administration Furosemide 20 mg 05/04/17 10:00 05/05/17 09:33 Lasix - PO 20 mg DAILY [facility] Administration Heparin Sodium (Porcine) 5,000 unit 05/03/17 23:30 05/05/17 13:38 Heparin - SQ 5,000 unit TID JACOB Administration Ceftriaxone Sodium 50 mls @ 100 mls/hr 05/04/17 10:00 05/05/17 09:33 Rocephin 1gm Ivpb (Pre-Docked) IVPB 100 mls/hr DAILY [facility] Administration Azithromycin 250 mls @ 250 mls/hr 05/04/17 10:00 05/05/17 09:33 Zithromax 500mg Ivpb (Pre-Docked) IVPB 250 mls/hr DAILY [facility] Administration Lactulose 20 gm 05/03/17 22:00 05/05/17 13:38 Cephulac (Oral Use) PO 20 gm TID [facility] Administration Latanoprost 1 drop 05/04/17 22:00 05/04/17 22:36 Xalatan 0.005% Eye Drops - OU 1 drop HS [facility] Administration Lisinopril 10 mg 05/04/17 10:00 05/05/17 09:33 Prinivil PO 10 mg DAILY [facility] Administration Metoprolol Succinate 25 mg 05/04/17 10:00 05/05/17 09:33 Toprol Xl - PO 25 mg DAILY [facility] Administration Nystatin 1 applic 05/04/17 10:00 05/05/17 10:42 Mycostatin Ointment - TP 1 applic BID [facility] Administration Oxycodone HCl 5 mg 05/03/17 22:43 05/03/17 23:05 Roxicodone - PO 5 mg Q6H PRN Administration PAIN ASSESSMENT/PLAN: IMAGING: * CXR: Mass-like density at R base. Previous fracture at R humerus unchanged since 04/06/17 * Chest CT: 1. Large pleural-based right lower lobe mass. Neoplastic and infectious etiologies should be considered. 2. Right basilar atelectasis and pleural fluid. 3. Findings suspicious for cirrhosis. 4. Cholelithiasis. The mass measures by 7.2 x 4.5 x 6.5 cm. The etiology of the mass is uncertain and a malignancy cannot be excluded * Head CT: No evidence of acute intracranial pathology or significant change ASSESSMENT/PLAN: 71 y/o F w/PMH of anemia, hypertension, alcoholic cirrhosis, COPD, and lymphedema presents to ER from [facility] rehab admitted for AMS and chest pain. Problem List - Problems (1) Lung mass Assessment/Plan: * Seen by pulmonary * CT guided biopsy pending. * RLL possible PNA ; continue Ceftriaxone and Azithromycin * PFTs and PET scan as outpatient * Oncology consult. (2) Altered mental status Assessment/Plan: * Hepatic encephalopathy most likely;lactulose 20 g po tid * UA reveled esterase and WBC- empiric Ceftriaxone;culture pending. * Head CT - no acute intracranial pathology * Repeat labs in AM (3) Closed right humeral fracture Assessment/Plan: * No surgical intervention planned * remains casted and immobile * Neurovascularly intact. * Pain control with Oxycodone. (4) Alcoholic cirrhosis (5) COPD (chronic obstructive pulmonary disease) Assessment/Plan: * Continue * Tudorza 1 puff IH BID * Duonebs PRN * supplemental O2 via NC maintain SpO2 >92% * Aspiration precautions. (6) HTN (hypertension) Assessment/Plan: * Amlodipine 2.5 mg po daily * lisinopril 10mg PO daily * Metoprolol 25mg Daily (7) Serum ammonia increased Assessment/Plan: * Lactulose 20mg BID titrate to 3 loose BM's/day * repeat ammonia in am * Neuro checks. (8) DVT prophylaxis Assessment/Plan: * Heparin 5000 units SQ TID * SCD's bilat. Visit type - Emergency Visit Emergency Visit: Yes ED Registration Date: 05/03/17 Care time: The patient presented to the Emergency Department on the above date and was hospitalized for further evaluation of their emergent condition. - New Patient This patient is new to me today: No - Critical Care Critical Care patient: No - Discharge Referral Referred to [facility] No
[2017-05-05] MEDS: LATANOPROST 0.005% OPHTH SOLN 2.5ML BOTTLE OU SCH (22:21)
[2017-05-06] MEDS: HEPARIN NA (PORCINE) 5,000 UNITS/ML 1ML VIAL SQ SCH ×3 (05:30→21:48)
[2017-05-06] MEDS: LACTULOSE 20 GM/30 ML UDC (FOR ORAL USE ONLY) PO SCH ×3 (05:30→21:48)
[2017-05-06 07:23] LABS: BASOPHIL 0.5 % (0-2.0); EOSINOPHIL 12.6 % (0-4.5); MCH 37.1 pg (25.7-33.7); MCHC 32.9 g/dl (32.0-36.0); MEAN CELL VOLUME 112.8 fl (80-96); MEAN PLT VOLUME 10.2 fl (7.5-11.1); PLATELET COUNT 77 K/MM3 (134-434); RDW 16.1 % (11.6-15.6); WHITE BLOOD COUNT 3.7 K/mm3 (4.0-10.0)
[2017-05-06 07:52] LABS: ANION GAP 8 (8-16); CALCIUM 8.6 mg/dL (8.5-10.1); CO2 29 mmol/L (21-32); CREATININE 1.3 mg/dL (0.55-1.02); GLUCOSE,RANDOM 118 mg/dL (74-106)
[2017-05-06] MEDS ORDERED: ALBUTEROL SO4 2.5/IPRATROPIUM 0.5 INH SOL 3 ML VIAL.NEB. NEB PRN (08:02)
[2017-05-06 10:40] LABS: ANISOCYTOSIS 1+; PLATELET ESTIMATE DECREASED (NORMAL); POLYCHROMASIA 1+
[2017-05-06] MEDS: DORZOLAMIDE 2% HCL OPHTHALMIC SOLUTION 10 ML BOTTLE OU SCH ×2 (10:47→21:49)
[2017-05-06] MEDS: NYSTATIN 100000 UNIT/GM TOPICAL OINTMENT 15 GM TUBE TP SCH ×2 (11:00→21:48)
[2017-05-06] MEDS: FUROSEMIDE 20 MG TABLET (FP) PO SCH (12:52)
[2017-05-06] MEDS: CITALOPRAM HYDROBROMIDE 20 MG TABLET (FP) PO SCH (12:52)
[2017-05-06] MEDS: METOPROLOL SUCCINATE 25 MG TAB.SR.24H (FP) PO SCH (12:52)
[2017-05-06] MEDS: LISINOPRIL 10 MG TABLET (FP) PO SCH (12:53)
[2017-05-06] MEDS: amLODIPine BESYLATE 2.5 MG TABLET (FP) PO SCH (12:53)
[2017-05-06] MEDS: CEFTRIAXONE 50 ML IVPB SCH (12:53)
--- NOTE | 2017-05-06 13:08 | CONSULT ---
Consult - text type - Consultation Consultation Note: FULL CONSULT DICTATED IMP: FX RIGHT HUMERUS PLAN: MAINTAIN SPLINT, WILL FOLLOW
--- NOTE | 2017-05-06 13:11 | PN ---
Progress Note, Physician History of Present Illness: PULMONARY ALERT,NAD,-SOB,-COUGH - Current Medication List Current Medications: Active Medications Albuterol/Ipratropium (Duoneb -) 1 amp NEB Q4H PRN PRN Reason: SHORTNESS OF BREATH Amlodipine Besylate (Norvasc -) 2.5 mg PO DAILY [facility] Last Admin: 05/06/17 12:53 Dose: 2.5 mg Citalopram Hydrobromide (Celexa -) 40 mg PO DAILY [facility] Last Admin: 05/06/17 12:52 Dose: 40 mg Dorzolamide HCl (Trusopt 2%) 1 drop OU BID [facility] Last Admin: 05/06/17 10:47 Dose: 1 drop Furosemide (Lasix -) 20 mg PO DAILY [facility] Last Admin: 05/06/17 12:52 Dose: 20 mg Heparin Sodium (Porcine) (Heparin -) 5,000 unit SQ TID [facility] Last Admin: 05/06/17 05:30 Dose: 5,000 unit Ceftriaxone Sodium (Rocephin 1gm Ivpb (Pre-Docked)) 50 mls @ 100 mls/hr IVPB DAILY [facility] Last Admin: 05/06/17 12:53 Dose: 100 mls/hr Azithromycin (Zithromax 500mg Ivpb (Pre-Docked)) 250 mls @ 250 mls/hr IVPB DAILY [facility] Last Admin: 05/05/17 09:33 Dose: 250 mls/hr Lactulose (Cephulac (Oral Use)) 20 gm PO TID [facility] Last Admin: 05/06/17 05:30 Dose: 20 gm Latanoprost (Xalatan 0.005% Eye Drops -) 1 drop OU HS [facility] Last Admin: 05/05/17 22:21 Dose: 1 drop Lisinopril (Prinivil) 10 mg PO DAILY [facility] Last Admin: 05/06/17 12:53 Dose: 10 mg Metoprolol Succinate (Toprol Xl -) 25 mg PO DAILY [facility] Last Admin: 05/06/17 12:52 Dose: 25 mg Nystatin (Mycostatin Ointment -) 1 applic TP BID [facility] Last Admin: 05/05/17 22:21 Dose: 1 applic Oxycodone HCl (Roxicodone -) 5 mg PO Q6H PRN PRN Reason: PAIN Last Admin: 05/03/17 23:05 Dose: 5 mg - Objective Vital Signs: Vital Signs Temperature 99 F 05/06/17 10:36 Pulse Rate 64 05/06/17 10:36 Respiratory Rate 18 05/06/17 10:36 Blood Pressure 141/76 05/06/17 10:36 O2 Sat by Pulse Oximetry (%) 96 05/05/17 22:00 Constitutional: Yes: Calm, Obese Eyes: Yes: WNL HENT: Yes: WNL Neck: Yes: WNL Cardiovascular: Yes: Regular Rate and Rhythm, S1, S2 Respiratory: Yes: Diminished Gastrointestinal: Yes: Normal Bowel Sounds, Soft Extremities: Yes: Other (RUE IN CAST) Edema: Yes Labs: CBC, BMP 05/06/17 05:35 05/06/17 05:35 INR, PTT INR 1.20 (0.82-1.09) H 05/03/17 13:06 - ....Imaging Chest X-ray: Report Reviewed, Image Reviewed Assessment/Plan Problem List - Problems (1) Lung mass Code(s): R91.8 - OTHER NONSPECIFIC ABNORMAL FINDING OF LUNG FIELD (2) Chest pain Code(s): R07.9 - CHEST PAIN, UNSPECIFIED (3) Alcoholic cirrhosis Code(s): K70.30 - ALCOHOLIC CIRRHOSIS OF LIVER WITHOUT ASCITES Qualifiers: Ascites presence: without ascites Qualified Code(s): K70.30 - Alcoholic cirrhosis of liver without ascites (4) COPD (chronic obstructive pulmonary disease) Code(s): J44.9 - CHRONIC OBSTRUCTIVE PULMONARY DISEASE, UNSPECIFIED Qualifiers : COPD type: emphysema Emphysema type: unspecified Qualified Code( s): J43.9 - Emphysema, unspecified (5) HTN (hypertension) Code(s): I10 - ESSENTIAL (PRIMARY) HYPERTENSION Qualifiers: Hypertension type: essential hypertension Qualified Code(s): I10 - Essential (primary) hypertension Assessment/Plan Chest Pain Lung Mass suspicious for malignancy COPD Former Smoker HTN Alcoholic Cirrhosis - CT guided lung biopsy - inhaled bronchodilators - O2 to keep SpO2 >90% - further recommendations after biopsy - will need PFTs, PET scan as outpt - DVT prophylaxis DR BELLE
--- NOTE | 2017-05-06 14:00 | CONS ---
DATE OF CONSULTATION: 05/06/2017 HISTORY OF PRESENT ILLNESS: Patient is a 71-year-old female well known to our service. Patient sustained a comminuted right humeral shaft fracture approximately 4 weeks ago. Due to the patient's horrendous medical conditions with anemia, hypertension, alcohol cirrhosis, COPD, lymphedema, we elected to treat the patient conservatively with a sugar-tong splint on the right humerus. Patient is now again admitted to the hospital for multiple other medical problems, including possibly hepatic encephalopathy versus UTI, anemia, and other medical conditions. We have been called to follow up the fracture. PHYSICAL EXAMINATION: The splint is intact. She has good motion of her elbow and fingers and neurovascularly intact. Brisk capillary refill. IMAGING: X-rays show that the fracture is beginning to heal, though not in the optimum position with a large fragment in the center portion of the humerus angulated. However, overall alignment on the AP is okay, on the lateral is definitely flexed. IMPRESSION: Fracture as described in a patient with multiple medical problems. Again, risks, benefits, and alternatives in great detail and we elect to continue treating her conservatively in the sugar-tong splint. Will follow her with serial x-rays in the upcoming weeks. SERGIO VERDE M.D. [facility]/[id number]
[2017-05-06] MEDS: AZITHROMYCIN IVPB 250 ML IVPB SCH (14:26)
--- NOTE | 2017-05-06 14:42 | PN ---
Physical Exam: SUBJECTIVE: Patient seen and examined at bedside. No overnight events. No new complaints. Continued Right arm pain. Denies CP, TEJADA, SOB, palpitations, abd.pain, N/V. OBJECTIVE: Vital Signs Period Temp Pulse Resp BP Sys/Mccarty Pulse Ox Last 24 Hr 98.2 F-99 F 64-71 16-20 131-158/60-82 96 GENERAL: AAO x 1, Awake and alert. HEAD: AT/NC. EYES: PERRL, EOMI, sclera anicteric, conjunctiva clear. No ptosis. ENT:Dry mucous membranes. NECK: supple, no jvd LUNGS: diminished breath sounds. HEART: RRR ABDOMEN: Soft,obese, nontender, nondistended, normoactive bowel sounds, no guarding, no rebound EXTREMITIES: RUE casted , NVI,2+ pulses, warm, well-perfused, 3+ LE edema. NEUROLOGICAL:Awake and responsive, gait not observed Laboratory Results - last 24 hr 05/06/17 05/06/17 05/06/17 05:35 05:35 05:35 WBC 3.7 L RBC 2.69 L Hgb 10.0 L Hct 30.3 L MCV 112.8 H MCHC 32.9 RDW 16.1 H Plt Count 77 L MPV 10.2 Neutrophils % 50.0 Lymphocytes % 25.7 Monocytes % 11.2 H Eosinophils % 12.6 H Basophils % 0.5 Platelet Estimate Decreased Polychromasia 1+ Anisocytosis 1+ Macrocytosis 2+ Sodium 148 H Potassium 4.1 Chloride 111 H Carbon Dioxide 29 Anion Gap 8 BUN 24 H Creatinine 1.3 H Random Glucose 118 H Calcium 8.6 Ammonia 12.94 Active Medications Generic Name Dose Route Start Last Admin Trade Name Freq PRN Reason Stop Dose Admin Albuterol/Ipratropium 1 amp 05/06/17 08:02 Duoneb - NEB Q4H PRN SHORTNESS OF BREATH Amlodipine Besylate 2.5 mg 05/04/17 10:00 05/06/17 12:53 Norvasc - PO 2.5 mg DAILY [facility]AC[facility] Administration Citalopram Hydrobromide 40 mg 05/04/17 10:00 05/06/17 12:52 Celexa - PO 40 mg DAILY [facility]AC[facility] Administration Dorzolamide HCl 1 drop 05/04/17 10:00 05/06/17 10:47 Trusopt 2% OU 1 drop BID JACOB Administration Furosemide 20 mg 05/04/17 10:00 05/06/17 12:52 Lasix - PO 20 mg DAILY [facility]AC[facility] Administration Heparin Sodium (Porcine) 5,000 unit 05/03/17 23:30 05/06/17 05:30 Heparin - SQ 5,000 unit TID [facility]ACOB Administration Ceftriaxone Sodium 50 mls @ 100 mls/hr 05/04/17 10:00 05/06/17 12:53 Rocephin 1gm Ivpb (Pre-Docked) IVPB 100 mls/hr DAILY [facility] Administration Azithromycin 250 mls @ 250 mls/hr 05/04/17 10:00 05/05/17 09:33 Zithromax 500mg Ivpb (Pre-Docked) IVPB 250 mls/hr DAILY [facility] Administration Lactulose 20 gm 05/03/17 22:00 05/06/17 05:30 Cephulac (Oral Use) PO 20 gm TID JACOB Administration Latanoprost 1 drop 05/04/17 22:00 05/05/17 22:21 Xalatan 0.005% Eye Drops - OU 1 drop HS [facility]ACOB Administration Lisinopril 10 mg 05/04/17 10:00 05/06/17 12:53 Prinivil PO 10 mg DAILY [facility] Administration Metoprolol Succinate 25 mg 05/04/17 10:00 05/06/17 12:52 Toprol Xl - PO 25 mg DAILY [facility] Administration Nystatin 1 applic 05/04/17 10:00 05/05/17 22:21 Mycostatin Ointment - TP 1 applic BID [facility] Administration Oxycodone HCl 5 mg 05/03/17 22:43 05/03/17 23:05 Roxicodone - PO 5 mg Q6H PRN Administration PAIN ASSESSMENT/PLAN: Problem List - Problems (1) Lung mass Assessment/Plan: * Seen by pulmonary * CT guided biopsy pending next week. * RLL possible PNA ; continue Ceftriaxone and Azithromycin * PFTs and PET scan as outpatient * Oncology consult. (2) Altered mental status Assessment/Plan: * Hepatic encephalopathy improved * UA reveled esterase and WBC- empiric Ceftriaxone;culture contaminated will repeat. * Head CT - no acute intracranial pathology * Repeat labs in AM (3) Closed right humeral fracture Assessment/Plan: * Evalutated by Dr. Fabrice Mace. - continue current management. * repeat humeral xray pending read. * No surgical intervention planned * remains casted and immobile * Neurovascularly intact. * Pain control with Oxycodone. (4) Alcoholic cirrhosis (5) COPD (chronic obstructive pulmonary disease) Assessment/Plan: * Continue * Tudorza 1 puff IH BID * Duonebs PRN * supplemental O2 via NC maintain SpO2 >92% * Aspiration precautions. (6) HTN (hypertension) Assessment/Plan: * Amlodipine 2.5 mg po daily * lisinopril 10mg PO daily * Metoprolol 25mg Daily (7) Serum ammonia increased Assessment/Plan: * Lactulose 20mg BID titrate to 3 loose BM's/day * repeat ammonia in am * Neuro checks. (8) DVT prophylaxis Assessment/Plan: * Heparin 5000 units SQ TID * SCD's bilat. Visit type - Emergency Visit Emergency Visit: Yes ED Registration Date: 05/03/17 Care time: The patient presented to the Emergency Department on the above date and was hospitalized for further evaluation of their emergent condition. - New Patient This patient is new to me today: No - Critical Care Critical Care patient: No - Discharge Referral Referred to [facility] No
--- NOTE | 2017-05-06 14:45 | PN ---
Teaching Attending Note Name of Resident: Mohan Mccartney ATTENDING PHYSICIAN STATEMENT I saw and evaluated the patient. I reviewed the resident's note and discussed the case with the resident. I agree with the resident's findings and plan as documented. SUBJECTIVE:c/o pleuritis CP 5/10 right sided OBJECTIVE: Vital Signs Temperature 99 F 05/06/17 10:36 Pulse Rate 64 05/06/17 10:36 Respiratory Rate 18 05/06/17 10:36 Blood Pressure 141/76 05/06/17 10:36 O2 Sat by Pulse Oximetry (%) 96 05/05/17 22:00 GENERAL: AAO x 1, confused and lethargic.Morbidly obese HEAD: AT/NC. EYES: PERRL, EOMI, sclera anicteric, conjunctiva clear. No ptosis. ENT:Dry mucous membranes.Poor dentition NECK: supple, no jvd LUNGS: diminished breath sounds. HEART: RRR ABDOMEN: Soft,obese, nontender, nondistended, normoactive bowel sounds, no guarding, no rebound EXTREMITIES: RUE casted ,2 plus edema , NVI,2+ pulses, warm, well-perfused, 2+ LE edema NEUROLOGICAL: cranial nerves grossly intact,gait not observed. CBC, BMP 05/06/17 05:35 05/06/17 05:35 ASSESSMENT AND PLAN: Chest pain - secondary to large pleural based lung mass, newly diagnosed and highly suspicious for malignancy . * planned for CT guided biopsy today * ICU monitoring after COPD - not in exacerbation * c/w O2 * bronchodilators * incentive spirometry Right humeral shaft fracture- managed conservatively since March 2017. Remains in the cast. Has no active ROM noted and it is unclear if she was able to participate with PT . This can complicate her recovery. * will obtain PT eval * ortho recomendations are to keep the splint , will await official consult RLE wound * local wound care UTI - asympthomatic - on Rocephin * follow cultures History of alcoholic liver cirrhosis - complicated by pancytopenia * monitor PLT ARF- improving , likely prerenal * monitor BMP DVT PPX * heparin sq
--- NOTE | 2017-05-06 21:11 | CONSULT ---
Consult - text type - Consultation Consultation Note: Patient seen and examined Full consult to follow 71 y/o patient former smoker, COPD, lung mass, alcoholic cirrhosis, Rt. humerus fracture alcoholic cirrhosis with thrombocytopenia, encephalopathy will need biopsy of lung mass---will need platelet transfusion INR--1.2/PTT-nl will follow
[2017-05-06] MEDS: oxyCODONE HCL 5 MG TABLET PO PRN (21:46)
[2017-05-06] MEDS: LATANOPROST 0.005% OPHTH SOLN 2.5ML BOTTLE OU SCH (21:49)
[2017-05-07] MEDS: LACTULOSE 20 GM/30 ML UDC (FOR ORAL USE ONLY) PO SCH ×3 (06:31→21:09)
[2017-05-07] MEDS: oxyCODONE HCL 5 MG TABLET PO PRN ×3 (06:31→21:19)
[2017-05-07] MEDS: HEPARIN NA (PORCINE) 5,000 UNITS/ML 1ML VIAL SQ SCH ×3 (06:32→21:09)
[2017-05-07 07:52] LABS: BASOPHIL 0.5 % (0-2.0); EOSINOPHIL 14.3 % (0-4.5); MCH 36.9 pg (25.7-33.7); MCHC 32.7 g/dl (32.0-36.0); MEAN CELL VOLUME 112.9 fl (80-96); NEUTROPHILS 50.6 % (42.8-82.8); PLATELET COUNT 72 K/MM3 (134-434); RDW 15.5 % (11.6-15.6); WHITE BLOOD COUNT 3.6 K/mm3 (4.0-10.0)
[2017-05-07 08:07] LABS: INR 1.22 (0.82-1.09); PROTHROMBIN TIME (PATIENT) 13.5 SEC (9.98-11.88)
[2017-05-07 08:09] LABS: ACTIVATED PTT 31.8 SECONDS (26.9-34.4)
[2017-05-07 08:25] LABS: ALBUMIN 2.6 g/dl (3.4-5.0); ANION GAP 8 (8-16); CALCIUM 8.4 mg/dL (8.5-10.1); CO2 29 mmol/L (21-32); CREATININE 1.2 mg/dL (0.55-1.02); GLUCOSE,RANDOM 109 mg/dL (74-106); SGOT/AST 28 U/L (15-37); SGPT/ALT 16 U/L (12-78)
[2017-05-07 08:27] LABS: ALK PHOS 89 U/L (45-117); BILIRUBIN,TOTAL 0.9 mg/dL (0.2-1.0); TOT PROT 6.2 g/dl (6.4-8.2)
[2017-05-07] MEDS: CEFTRIAXONE 50 ML IVPB SCH (09:17)
[2017-05-07] MEDS: amLODIPine BESYLATE 2.5 MG TABLET (FP) PO SCH (09:17)
[2017-05-07] MEDS: FUROSEMIDE 20 MG TABLET (FP) PO SCH (09:17)
[2017-05-07] MEDS: DORZOLAMIDE 2% HCL OPHTHALMIC SOLUTION 10 ML BOTTLE OU SCH ×2 (09:18→21:11)
[2017-05-07] MEDS: CITALOPRAM HYDROBROMIDE 20 MG TABLET (FP) PO SCH (09:18)
[2017-05-07] MEDS: METOPROLOL SUCCINATE 25 MG TAB.SR.24H (FP) PO SCH (09:18)
[2017-05-07] MEDS: LISINOPRIL 10 MG TABLET (FP) PO SCH (09:18)
[2017-05-07] MEDS: NYSTATIN 100000 UNIT/GM TOPICAL OINTMENT 15 GM TUBE TP SCH ×2 (09:18→21:10)
[2017-05-07] MEDS: AZITHROMYCIN IVPB 250 ML IVPB SCH (09:57)
--- NOTE | 2017-05-07 13:04 | PN ---
Progress Note, Physician History of Present Illness: pulmonary alert,nad,-cp,+R sided chest discomfort - Current Medication List Current Medications: Active Medications Albuterol/Ipratropium (Duoneb -) 1 amp NEB Q4H PRN PRN Reason: SHORTNESS OF BREATH Amlodipine Besylate (Norvasc -) 2.5 mg PO DAILY [facility] Last Admin: 05/07/17 09:17 Dose: 2.5 mg Citalopram Hydrobromide (Celexa -) 40 mg PO DAILY [facility] Last Admin: 05/07/17 09:18 Dose: 40 mg Dorzolamide HCl (Trusopt 2%) 1 drop OU BID [facility] Last Admin: 05/07/17 09:18 Dose: 1 drop Furosemide (Lasix -) 20 mg PO DAILY [facility] Last Admin: 05/07/17 09:17 Dose: 20 mg Heparin Sodium (Porcine) (Heparin -) 5,000 unit SQ TID [facility] Last Admin: 05/07/17 06:32 Dose: 5,000 unit Ceftriaxone Sodium (Rocephin 1gm Ivpb (Pre-Docked)) 50 mls @ 100 mls/hr IVPB DAILY [facility] Last Admin: 05/07/17 09:17 Dose: 100 mls/hr Azithromycin (Zithromax 500mg Ivpb (Pre-Docked)) 250 mls @ 250 mls/hr IVPB DAILY [facility] Last Admin: 05/07/17 09:57 Dose: 250 mls/hr Lactulose (Cephulac (Oral Use)) 20 gm PO TID [facility] Last Admin: 05/07/17 06:31 Dose: 20 gm Latanoprost (Xalatan 0.005% Eye Drops -) 1 drop OU HS [facility] Last Admin: 05/06/17 21:49 Dose: 1 drop Lisinopril (Prinivil) 10 mg PO DAILY [facility] Last Admin: 05/07/17 09:18 Dose: 10 mg Metoprolol Succinate (Toprol Xl -) 25 mg PO DAILY [facility] Last Admin: 05/07/17 09:18 Dose: 25 mg Nystatin (Mycostatin Ointment -) 1 applic TP BID [facility] Last Admin: 05/07/17 09:18 Dose: 1 applic Oxycodone HCl (Roxicodone -) 5 mg PO Q6H PRN PRN Reason: PAIN Last Admin: 05/07/17 06:31 Dose: 5 mg - Objective Vital Signs: Vital Signs Temperature 98.7 F 05/07/17 06:00 Pulse Rate 61 05/07/17 11:47 Respiratory Rate 20 05/07/17 06:00 Blood Pressure 134/61 05/07/17 06:00 O2 Sat by Pulse Oximetry (%) 97 05/07/17 11:47 Constitutional: Yes: Calm, Obese Eyes: Yes: WNL HENT: Yes: WNL Neck: Yes: WNL Cardiovascular: Yes: Regular Rate and Rhythm, S1, S2 Respiratory: Yes: Diminished Gastrointestinal: Yes: Normal Bowel Sounds, Soft Extremities: Yes: Other (r arm casted) Edema: Yes Labs: CBC, BMP 05/07/17 07:00 05/07/17 07:00 INR, PTT INR 1.22 (0.82-1.09) H 05/07/17 07:00 Fibrinogen 266.0 mg/dL (238-498) 05/07/17 07:00 Assessment/Plan Problem List - Problems (1) Lung mass Code(s): R91.8 - OTHER NONSPECIFIC ABNORMAL FINDING OF LUNG FIELD (2) Chest pain Code(s): R07.9 - CHEST PAIN, UNSPECIFIED (3) Alcoholic cirrhosis Code(s): K70.30 - ALCOHOLIC CIRRHOSIS OF LIVER WITHOUT ASCITES Qualifiers: Ascites presence: without ascites Qualified Code(s): K70.30 - Alcoholic cirrhosis of liver without ascites (4) COPD (chronic obstructive pulmonary disease) Code(s): J44.9 - CHRONIC OBSTRUCTIVE PULMONARY DISEASE, UNSPECIFIED Qualifiers : COPD type: emphysema Emphysema type: unspecified Qualified Code( s): J43.9 - Emphysema, unspecified (5) HTN (hypertension) Code(s): I10 - ESSENTIAL (PRIMARY) HYPERTENSION Qualifiers: Hypertension type: essential hypertension Qualified Code(s): I10 - Essential (primary) hypertension Assessment/Plan Chest Pain Lung Mass suspicious for malignancy COPD Former Smoker HTN Alcoholic Cirrhosis - CT guided lung biopsy - inhaled bronchodilators - O2 to keep SpO2 >90% - further recommendations after biopsy - will need PFTs, PET scan as outpt - DVT prophylaxis DR BELLE
--- NOTE | 2017-05-07 16:59 | PN ---
Teaching Attending Note Name of Resident: Karmen Myrick ATTENDING PHYSICIAN STATEMENT I saw and evaluated the patient. I reviewed the resident's note and discussed the case with the resident. I agree with the resident's findings and plan as documented. SUBJECTIVE: feels better , SOB is not improving Vital Signs Temperature 98.8 F 05/07/17 14:28 Pulse Rate 61 05/07/17 14:28 Respiratory Rate 20 05/07/17 14:28 Blood Pressure 133/70 05/07/17 14:28 O2 Sat by Pulse Oximetry (%) 97 05/07/17 11:47 GENERAL: AAO x 1, confused and lethargic.Morbidly obese HEAD: AT/NC. EYES: PERRL, EOMI, sclera anicteric, conjunctiva clear. No ptosis. ENT:Dry mucous membranes.Poor dentition NECK: supple, no jvd LUNGS: diminished breath sounds b/l HEART: RRR ABDOMEN: Soft,obese, nontender, nondistended, normoactive bowel sounds, no guarding, no rebound EXTREMITIES: RUE casted ,2 plus edema , NVI,2+ pulses, warm, well-perfused, 2+ LE edema NEUROLOGICAL: cranial nerves grossly intact,gait not observed. CBC, BMP 05/07/17 07:00 05/07/17 07:00 ASSESSMENT AND PLAN: Chest pain - secondary to large pleural based lung mass, newly diagnosed and highly suspicious for malignancy . * needs CT guided biopsy , IR will be consulted * ICU monitoring after * will likely need platelets /FFP during COPD - not in exacerbation * c/w O2 * bronchodilators * incentive spirometry Right humeral shaft fracture- managed conservatively since March 2017. Remains in the cast. Has no active ROM noted and it is unclear if she was able to participate with PT . This can complicate her recovery. * will obtain PT eval * ortho recomendations are to keep the splint RLE wound * local wound care UTI - asympthomatic - on Rocephin, cultures suggest contamination * repeat UA History of alcoholic liver cirrhosis - complicated by pancytopenia * monitor PLT ARF- improving , likely prerenal * monitor BMP DVT PPX * heparin sq
[2017-05-07] MEDS ORDERED: PT OWN MED DRAWER 7, Y5N ONE (20:25)
[2017-05-07 20:36] LABS: URINE APPEARANCE CLEAR; URINE BILIRUBIN NEGATIVE (NEGATIVE); URINE COLOR LTYELLOW; URINE GLUCOSE (UA) NEGATIVE (NEGATIVE); URINE KETONE NEGATIVE (NEGATIVE); URINE LEUK ESTERASE NEGATIVE (NEGATIVE); URINE NITRITE NEGATIVE (NEGATIVE); URINE PROTEIN NEGATIVE (NEGATIVE); URINE UROBILINOGEN NEGATIVE E.U./dl (0.2-1.0)
[2017-05-07 20:42] LABS: URINE BLOOD 3+ (NEGATIVE)
[2017-05-07 20:43] LABS: URINE BACTERIA RARE /hpf (NONE SEEN); URINE RBC 32 /hpf (0-3); URINE WBC 3 /hpf (3-5)
[2017-05-07] MEDS: LATANOPROST 0.005% OPHTH SOLN 2.5ML BOTTLE OU SCH (21:11)
[2017-05-08] MEDS: LACTULOSE 20 GM/30 ML UDC (FOR ORAL USE ONLY) PO SCH ×3 (06:39→21:01)
[2017-05-08] MEDS: HEPARIN NA (PORCINE) 5,000 UNITS/ML 1ML VIAL SQ SCH ×3 (06:40→21:01)
[2017-05-08] MEDS: oxyCODONE HCL 5 MG TABLET PO PRN ×3 (06:45→21:02)
[2017-05-08 07:43] LABS: ANION GAP 8 (8-16); CALCIUM 8.2 mg/dL (8.5-10.1); CO2 28 mmol/L (21-32); GLUCOSE,RANDOM 99 mg/dL (74-106)
[2017-05-08 07:45] LABS: CREATININE 1.3 mg/dL (0.55-1.02)
[2017-05-08 07:55] LABS: BASOPHIL 0.4 % (0-2.0); EOSINOPHIL 13.6 % (0-4.5); MCH 37.1 pg (25.7-33.7); MCHC 33.4 g/dl (32.0-36.0); MEAN CELL VOLUME 111.1 fl (80-96); MEAN PLT VOLUME 9.9 fl (7.5-11.1); NEUTROPHILS 49.8 % (42.8-82.8); PLATELET COUNT 68 K/MM3 (134-434); RDW 15.4 % (11.6-15.6); WHITE BLOOD COUNT 3.8 K/mm3 (4.0-10.0)
[2017-05-08] MEDS ORDERED: PT OWN MED DRAWER 7, Y5N ONE ×2 (09:05→20:47)
[2017-05-08] MEDS: LISINOPRIL 10 MG TABLET (FP) PO SCH (09:06)
[2017-05-08] MEDS: FUROSEMIDE 20 MG TABLET (FP) PO SCH (09:06)
[2017-05-08] MEDS: METOPROLOL SUCCINATE 25 MG TAB.SR.24H (FP) PO SCH (09:07)
[2017-05-08] MEDS: CITALOPRAM HYDROBROMIDE 20 MG TABLET (FP) PO SCH (09:07)
[2017-05-08] MEDS: AZITHROMYCIN IVPB 250 ML IVPB SCH (09:07)
[2017-05-08] MEDS: amLODIPine BESYLATE 2.5 MG TABLET (FP) PO SCH (09:07)
[2017-05-08] MEDS: DORZOLAMIDE 2% HCL OPHTHALMIC SOLUTION 10 ML BOTTLE OU SCH ×2 (09:08→21:02)
[2017-05-08] MEDS: CEFTRIAXONE 50 ML IVPB SCH (09:12)
[2017-05-08] MEDS: NYSTATIN 100000 UNIT/GM TOPICAL OINTMENT 15 GM TUBE TP SCH ×2 (09:36→21:02)
--- NOTE | 2017-05-08 10:51 | PN ---
Physical Exam: SUBJECTIVE: Patient seen and examined at bedside. OBJECTIVE: Vital Signs Period Temp Pulse Resp BP Sys/Mccarty Pulse Ox Last 24 Hr 98.2 F-98.9 F 61-68 18-20 125-148/60-70 97-97 GENERAL: The patient is awake, alert, and fully oriented, in no acute distress. HEAD: Normal with no signs of trauma. EYES: PERRL, extraocular movements intact, sclera anicteric, conjunctiva clear. No ptosis. LUNGS: Distant breath sounds due to body habitus HEART: Regular rate and rhythm, S1, S2 without murmur, rub or gallop. ABDOMEN: morbidly obese, soft, not tender, normoactive bowel sounds EXTREMITIES: 4+ pitting edema bilaterally, legs very warm to touch, mildly erythematous; ulcer on medial aspect of right malleolus, wound bed clean, no exudate NEUROLOGICAL: Cranial nerves II through XII grossly intact. Normal speech, gait not observed. Laboratory Results - last 24 hr 05/07/17 05/08/17 05/08/17 19:00 06:25 06:25 WBC 3.8 L RBC 2.63 L Hgb 9.8 L Hct 29.2 L MCV 111.1 H MCHC 33.4 RDW 15.4 Plt Count 68 L MPV 9.9 Neutrophils % 49.8 Lymphocytes % 24.9 Monocytes % 11.3 H Eosinophils % 13.6 H Basophils % 0.4 Sodium 143 Potassium 3.8 Chloride 107 Carbon Dioxide 28 Anion Gap 8 BUN 19 H Creatinine 1.3 H Random Glucose 99 Calcium 8.2 L Urine Color Ltyellow Urine Appearance Clear Urine pH 5.0 Ur Specific [place] 1.010 Urine Protein Negative Urine Glucose (UA) Negative Urine Ketones Negative Urine Blood 3+ H Urine Nitrite Negative Urine Bilirubin Negative Urine Urobilinogen Negative Ur Leukocyte Esterase Negative Urine RBC 32 Urine WBC 3 Urine Bacteria Rare Active Medications Generic Name Dose Route Start Last Admin Trade Name Freq PRN Reason Stop Dose Admin Albuterol/Ipratropium 1 amp 05/06/17 08:02 Duoneb - NEB Q4H PRN SHORTNESS OF BREATH Amlodipine Besylate 2.5 mg 05/04/17 10:00 05/08/17 09:07 Norvasc - PO 2.5 mg DAILY JACOB Administration Citalopram Hydrobromide 40 mg 05/04/17 10:00 05/08/17 09:07 Celexa - PO 40 mg DAILY JACOB Administration Dorzolamide HCl 1 drop 05/04/17 10:00 05/08/17 09:08 Trusopt 2% OU 1 drop BID JACOB Administration Furosemide 20 mg 05/04/17 10:00 05/08/17 09:06 Lasix - PO 20 mg DAILY JACOB Administration Heparin Sodium (Porcine) 5,000 unit 05/03/17 23:30 05/08/17 06:40 Heparin - SQ 5,000 unit TID JACOB Administration Ceftriaxone Sodium 50 mls @ 100 mls/hr 05/04/17 10:00 05/08/17 09:12 Rocephin 1gm Ivpb (Pre-Docked) IVPB 100 mls/hr DAILY [facility] Administration Azithromycin 250 mls @ 250 mls/hr 05/04/17 10:00 05/08/17 09:07 Zithromax 500mg Ivpb (Pre-Docked) IVPB 250 mls/hr DAILY [facility] Administration Lactulose 20 gm 05/03/17 22:00 05/08/17 06:39 Cephulac (Oral Use) PO 20 gm TID JACOB Administration Latanoprost 1 drop 05/04/17 22:00 05/07/17 21:11 Xalatan 0.005% Eye Drops - OU 1 drop HS JACOB Administration Lisinopril 10 mg 05/04/17 10:00 05/08/17 09:06 Prinivil PO 10 mg DAILY [facility]ACOB Administration Metoprolol Succinate 25 mg 05/04/17 10:00 05/08/17 09:07 Toprol Xl - PO 25 mg DAILY JACOB Administration Nystatin 1 applic 05/04/17 10:00 05/08/17 09:36 Mycostatin Ointment - TP 1 applic BID JACOB Administration Oxycodone HCl 5 mg 05/03/17 22:43 05/08/17 06:45 Roxicodone - PO 5 mg Q6H PRN Administration PAIN ASSESSMENT/PLAN: 71 year-old female with a PMH of HTN, COPD, alcoholic cirrhosis, anemia and lymphedema admitted for chest pain. Found to have large lung mass. Lung mass r/o pneumonia --pending IR guided lung biopsy --continue ceftriaxone; azithro course x 5 days complete Bilateral lower extremity edema --tense, 4+ pitting edema --legs are very warm to touch, resolving cellulitis? continue ceftriaxone --echo ordered to r/o heart failure as cause of LE edema --increase Lasix to IV 40mg daily --daily weights Vascular ulcer --vascular ulcer on lateral aspect of right malleolus Alcoholic cirrhosis Hepatic encephalopathy, improved --having 3-4 BMs per day --continue lactulose Thrombocytopenia --likely secondary to alcholic liver disease COPD, chronic --continue duonebs Right humeral shaft fracture --managed conservatively since March 2017, remains in soft cast UTI --asymptomatic, on ceftriaxone PAULA, improved --Cr 1.8 on admission, now 1.3 Hypertension --BP well-controled --continue metoprolol, lisinopril, amlodipine, lasix F/E/N Fluids: PO intake adequate Electrolytes: replete as indicated Nutrition: cardiac diet DVT prophylaxis: subq heparin Physical therapy eval Daily PT Dispo: continues to require inpatient care. Full code. Visit type - Emergency Visit Emergency Visit: Yes ED Registration Date: 05/03/17 Care time: The patient presented to the Emergency Department on the above date and was hospitalized for further evaluation of their emergent condition. - New Patient This patient is new to me today: Yes Date on this admission: 05/08/17 - Critical Care Critical Care patient: No
--- NOTE | 2017-05-08 12:34 | PN ---
Progress Note, Physician History of Present Illness: PULMONARY ALERT,C/O GENERALIZED PAINS,LESS DYSPNEIC - Current Medication List Current Medications: Active Medications Albuterol/Ipratropium (Duoneb -) 1 amp NEB Q4H PRN PRN Reason: SHORTNESS OF BREATH Amlodipine Besylate (Norvasc -) 2.5 mg PO DAILY [facility] Last Admin: 05/08/17 09:07 Dose: 2.5 mg Citalopram Hydrobromide (Celexa -) 40 mg PO DAILY [facility] Last Admin: 05/08/17 09:07 Dose: 40 mg Dorzolamide HCl (Trusopt 2%) 1 drop OU BID [facility] Last Admin: 05/08/17 09:08 Dose: 1 drop Furosemide (Lasix -) 20 mg PO DAILY [facility] Last Admin: 05/08/17 09:06 Dose: 20 mg Heparin Sodium (Porcine) (Heparin -) 5,000 unit SQ TID [facility] Last Admin: 05/08/17 06:40 Dose: 5,000 unit Ceftriaxone Sodium (Rocephin 1gm Ivpb (Pre-Docked)) 50 mls @ 100 mls/hr IVPB DAILY [facility] Last Admin: 05/08/17 09:12 Dose: 100 mls/hr Lactulose (Cephulac (Oral Use)) 20 gm PO TID [facility] Last Admin: 05/08/17 06:39 Dose: 20 gm Latanoprost (Xalatan 0.005% Eye Drops -) 1 drop OU HS [facility] Last Admin: 05/07/17 21:11 Dose: 1 drop Lisinopril (Prinivil) 10 mg PO DAILY [facility] Last Admin: 05/08/17 09:06 Dose: 10 mg Metoprolol Succinate (Toprol Xl -) 25 mg PO DAILY [facility] Last Admin: 05/08/17 09:07 Dose: 25 mg Nystatin (Mycostatin Ointment -) 1 applic TP BID [facility] Last Admin: 05/08/17 09:36 Dose: 1 applic Oxycodone HCl (Roxicodone -) 5 mg PO Q6H PRN PRN Reason: PAIN Last Admin: 05/08/17 12:25 Dose: 5 mg - Objective Vital Signs: Vital Signs Temperature 98.9 F 05/08/17 09:00 Pulse Rate 68 05/08/17 09:00 Respiratory Rate 18 05/08/17 09:00 Blood Pressure 125/68 05/08/17 09:00 O2 Sat by Pulse Oximetry (%) 97 05/08/17 10:00 Constitutional: Yes: Calm, Obese Eyes: Yes: WNL HENT: Yes: WNL Neck: Yes: WNL Cardiovascular: Yes: Regular Rate and Rhythm, S1, S2 Respiratory: Yes: Diminished Gastrointestinal: Yes: Normal Bowel Sounds, Soft, Abdomen, Obese Extremities: Yes: WNL, Other (RUE CASTED) Edema: Yes Labs: CBC, BMP 05/08/17 06:25 05/08/17 06:25 INR, PTT INR 1.22 (0.82-1.09) H 05/07/17 07:00 Fibrinogen 266.0 mg/dL (238-498) 05/07/17 07:00 Assessment/Plan Problem List - Problems (1) Lung mass Code(s): R91.8 - OTHER NONSPECIFIC ABNORMAL FINDING OF LUNG FIELD (2) Chest pain Code(s): R07.9 - CHEST PAIN, UNSPECIFIED (3) Alcoholic cirrhosis Code(s): K70.30 - ALCOHOLIC CIRRHOSIS OF LIVER WITHOUT ASCITES Qualifiers: Ascites presence: without ascites Qualified Code(s): K70.30 - Alcoholic cirrhosis of liver without ascites (4) COPD (chronic obstructive pulmonary disease) Code(s): J44.9 - CHRONIC OBSTRUCTIVE PULMONARY DISEASE, UNSPECIFIED Qualifiers : COPD type: emphysema Emphysema type: unspecified Qualified Code( s): J43.9 - Emphysema, unspecified (5) HTN (hypertension) Code(s): I10 - ESSENTIAL (PRIMARY) HYPERTENSION Qualifiers: Hypertension type: essential hypertension Qualified Code(s): I10 - Essential (primary) hypertension Assessment/Plan Chest Pain Lung Mass suspicious for malignancy COPD Former Smoker HTN Alcoholic Cirrhosis - CT guided lung biopsy - inhaled bronchodilators - O2 to keep SpO2 >90% - further recommendations after biopsy - will need PFTs, PET scan as outpt - DVT prophylaxis DR BELLE
[2017-05-08] MEDS: LATANOPROST 0.005% OPHTH SOLN 2.5ML BOTTLE OU SCH (21:02)
[2017-05-09] MEDS: oxyCODONE HCL 5 MG TABLET PO PRN (06:31)
[2017-05-09] MEDS: LACTULOSE 20 GM/30 ML UDC (FOR ORAL USE ONLY) PO SCH ×3 (06:31→22:18)
[2017-05-09] MEDS: HEPARIN NA (PORCINE) 5,000 UNITS/ML 1ML VIAL SQ SCH ×3 (06:32→22:18)
[2017-05-09 07:39] LABS: BASOPHIL 0.5 % (0-2.0); EOSINOPHIL 12.8 % (0-4.5); MCHC 32.9 g/dl (32.0-36.0); MEAN CELL VOLUME 109.5 fl (80-96); MEAN PLT VOLUME 10.3 fl (7.5-11.1); NEUTROPHILS 46.3 % (42.8-82.8); PLATELET COUNT 73 K/MM3 (134-434); RDW 15.3 % (11.6-15.6); WHITE BLOOD COUNT 4.4 K/mm3 (4.0-10.0)
[2017-05-09 07:59] LABS: ALBUMIN 2.5 g/dl (3.4-5.0); ANION GAP 7 (8-16); CALCIUM 8.1 mg/dL (8.5-10.1); CO2 27 mmol/L (21-32); CREATININE 1.4 mg/dL (0.55-1.02); GLUCOSE,RANDOM 105 mg/dL (74-106); MAGNESIUM 1.9 mg/dL (1.8-2.4); SGOT/AST 30 U/L (15-37); SGPT/ALT 17 U/L (12-78)
[2017-05-09 08:04] LABS: ALK PHOS 93 U/L (45-117); BILIRUBIN,TOTAL 0.7 mg/dL (0.2-1.0)
--- NOTE | 2017-05-09 09:09 | PN ---
Progress Note (short form) - Note Progress Note: Ortho Pt seen and examined s/p right humeral shaft fx splint intact, nvi a/p Maintain immobilization pain control will follow d/w Dr. Avina
[2017-05-09] MEDS ORDERED: PT OWN MED DRAWER 7, Y5N ONE (10:19)
[2017-05-09] MEDS: CEFTRIAXONE 50 ML IVPB SCH (10:37)
[2017-05-09] MEDS: CITALOPRAM HYDROBROMIDE 20 MG TABLET (FP) PO SCH (10:37)
[2017-05-09] MEDS: FUROSEMIDE 40 MG/4 ML INJECTABLE VIAL IVPUSH SCH (10:38)
[2017-05-09] MEDS: METOPROLOL SUCCINATE 25 MG TAB.SR.24H (FP) PO SCH (10:38)
[2017-05-09] MEDS: amLODIPine BESYLATE 2.5 MG TABLET (FP) PO SCH (10:38)
[2017-05-09] MEDS: LISINOPRIL 10 MG TABLET (FP) PO SCH (10:38)
[2017-05-09] MEDS: NYSTATIN 100000 UNIT/GM TOPICAL OINTMENT 15 GM TUBE TP SCH ×2 (10:40→22:19)
[2017-05-09] MEDS: DORZOLAMIDE 2% HCL OPHTHALMIC SOLUTION 10 ML BOTTLE OU SCH ×2 (10:41→22:19)
--- NOTE | 2017-05-09 13:25 | PN ---
Physical Exam: SUBJECTIVE: Patient seen and examined at bedside. No overnight events. No new complaints. Continued Right arm pain. Denies CP, TEJADA, SOB, palpitations, abd.pain, N/V. OBJECTIVE: Vital Signs Period Temp Pulse Resp BP Sys/Mccarty Pulse Ox Last 24 Hr 98.2 F-99.9 F 63-66 18-18 120-145/50-68 100 GENERAL: AAO x 3, NAD HEAD: AT/NC. EYES: PERRL, EOMI, sclera anicteric, conjunctiva clear. No ptosis. ENT:moist mucous membranes. NECK: supple, no jvd LUNGS: diminished breath sounds. HEART: RRR ABDOMEN: Soft,obese, nontender, nondistended, normoactive bowel sounds, no guarding, no rebound EXTREMITIES: RUE casted , NVI,2+ pulses, warm, well-perfused, 2+ LE edema. NEUROLOGICAL:Awake and responsive, gait not observed Laboratory Results - last 24 hr 05/09/17 05/09/17 05:35 05:35 WBC 4.4 RBC 2.71 L Hgb 9.8 L Hct 29.7 L MCV 109.5 H MCHC 32.9 RDW 15.3 Plt Count 73 L MPV 10.3 Neutrophils % 46.3 Lymphocytes % 29.3 Monocytes % 11.1 H Eosinophils % 12.8 H Basophils % 0.5 Sodium 141 Potassium 4.1 Chloride 107 Carbon Dioxide 27 Anion Gap 7 L BUN 20 H Creatinine 1.4 H Creat Clearance w eGFR 37.28 Random Glucose 105 Calcium 8.1 L Magnesium 1.9 Total Bilirubin 0.7 D AST 30 ALT 17 Alkaline Phosphatase 93 B-Natriuretic Peptide 971.66 H Total Protein 6.0 L Albumin 2.5 L Active Medications Generic Name Dose Route Start Last Admin Trade Name Freq PRN Reason Stop Dose Admin Albuterol/Ipratropium 1 amp 05/06/17 08:02 Duoneb - NEB Q4H PRN SHORTNESS OF BREATH Amlodipine Besylate 2.5 mg 05/04/17 10:00 05/09/17 10:38 Norvasc - PO 2.5 mg DAILY JACOB Administration Citalopram Hydrobromide 40 mg 05/04/17 10:00 05/09/17 10:37 Celexa - PO 40 mg DAILY JACOB Administration Dorzolamide HCl 1 drop 05/04/17 10:00 05/09/17 10:41 Trusopt 2% OU 1 drop BID JACOB Administration Furosemide 40 mg 05/09/17 10:00 05/09/17 10:38 Lasix Injection - IVPUSH 40 mg DAILY JACOB Administration Heparin Sodium (Porcine) 5,000 unit 05/03/17 23:30 05/09/17 06:32 Heparin - SQ 5,000 unit TID JACOB Administration Ceftriaxone Sodium 50 mls @ 100 mls/hr 05/04/17 10:00 05/09/17 10:37 Rocephin 1gm Ivpb (Pre-Docked) IVPB 100 mls/hr DAILY [facility] Administration Lactulose 20 gm 05/03/17 22:00 05/09/17 06:31 Cephulac (Oral Use) PO 20 gm TID JACOB Administration Latanoprost 1 drop 05/04/17 22:00 05/08/17 21:02 Xalatan 0.005% Eye Drops - OU 1 drop HS JACOB Administration Lisinopril 10 mg 05/04/17 10:00 05/09/17 10:38 Prinivil PO 10 mg DAILY JACOB Administration Metoprolol Succinate 25 mg 05/04/17 10:00 05/09/17 10:38 Toprol Xl - PO 25 mg DAILY JACOB Administration Nystatin 1 applic 05/04/17 10:00 05/09/17 10:40 Mycostatin Ointment - TP 1 applic BID JACOB Administration Oxycodone HCl 5 mg 05/03/17 22:43 05/09/17 06:31 Roxicodone - PO 5 mg Q6H PRN Administration PAIN ASSESSMENT/PLAN: 71 y/o F w/PMH of anemia, hypertension, alcoholic cirrhosis, COPD, and lymphedema [facility]. Problem List - Problems (1) Lung mass Assessment/Plan: * She is more alert today and explained to her the possibility of this being malignancy. She understood and consented to having biopsy. * pulmonary consult appreciated. * IR CT guided biopsy pending tomorrow * MRI of brain and Ct abdomen and pelvis for staging purposes pending. * PFTs and PET scan as outpatient * Oncology consult. (2) Altered mental status Assessment/Plan: * Hepatic encephalopathy improved * Continue Lactulose. * completed 7 day course of ABx. * Head CT - no acute intracranial pathology * Repeat labs in AM (3) Closed right humeral fracture Assessment/Plan: * Evalutated by Dr. Fabrice Mace. - continue current management. * No surgical intervention planned * remains casted and immobile * Neurovascularly intact. * Pain control with Oxycodone. (4) Alcoholic cirrhosis Assessment/Plan: * Lower extremity edema improved with daily 40mg IV lasix * Will add spironolactone . (5) COPD (chronic obstructive pulmonary disease) Assessment/Plan: * Continue * Tudorza 1 puff IH BID * Duonebs PRN * supplemental O2 via NC maintain SpO2 >92% * Aspiration precautions. (6) HTN (hypertension) Assessment/Plan: * Amlodipine 2.5 mg po daily * lisinopril 10mg PO daily * Metoprolol 25mg Daily (7) DVT prophylaxis Assessment/Plan: * Heparin 5000 units SQ TID * SCD's bilat. Visit type - Emergency Visit Emergency Visit: Yes ED Registration Date: 05/03/17 Care time: The patient presented to the Emergency Department on the above date and was hospitalized for further evaluation of their emergent condition. - New Patient This patient is new to me today: No - Critical Care Critical Care patient: No - Discharge Referral Referred to [facility] Med P.C.: No
--- NOTE | 2017-05-09 13:29 | PN ---
Progress Note, Physician History of Present Illness: PULMONARY ALERT,FEELING BETTER,LESS DYSPNEIC - Current Medication List Current Medications: Active Medications Albuterol/Ipratropium (Duoneb -) 1 amp NEB Q4H PRN PRN Reason: SHORTNESS OF BREATH Amlodipine Besylate (Norvasc -) 2.5 mg PO DAILY [facility] Last Admin: 05/09/17 10:38 Dose: 2.5 mg Citalopram Hydrobromide (Celexa -) 40 mg PO DAILY [facility] Last Admin: 05/09/17 10:37 Dose: 40 mg Dorzolamide HCl (Trusopt 2%) 1 drop OU BID [facility] Last Admin: 05/09/17 10:41 Dose: 1 drop Furosemide (Lasix Injection -) 40 mg IVPUSH DAILY [facility] Last Admin: 05/09/17 10:38 Dose: 40 mg Heparin Sodium (Porcine) (Heparin -) 5,000 unit SQ TID [facility] Last Admin: 05/09/17 06:32 Dose: 5,000 unit Ceftriaxone Sodium (Rocephin 1gm Ivpb (Pre-Docked)) 50 mls @ 100 mls/hr IVPB DAILY [facility] Last Admin: 05/09/17 10:37 Dose: 100 mls/hr Lactulose (Cephulac (Oral Use)) 20 gm PO TID [facility] Last Admin: 05/09/17 06:31 Dose: 20 gm Latanoprost (Xalatan 0.005% Eye Drops -) 1 drop OU HS [facility] Last Admin: 05/08/17 21:02 Dose: 1 drop Lisinopril (Prinivil) 10 mg PO DAILY [facility] Last Admin: 05/09/17 10:38 Dose: 10 mg Metoprolol Succinate (Toprol Xl -) 25 mg PO DAILY [facility] Last Admin: 05/09/17 10:38 Dose: 25 mg Nystatin (Mycostatin Ointment -) 1 applic TP BID [facility] Last Admin: 05/09/17 10:40 Dose: 1 applic Oxycodone HCl (Roxicodone -) 5 mg PO Q6H PRN PRN Reason: PAIN Last Admin: 05/09/17 06:31 Dose: 5 mg - Objective Vital Signs: Vital Signs Temperature 99.4 F 05/09/17 07:07 Pulse Rate 65 05/09/17 07:07 Respiratory Rate 18 05/09/17 07:07 Blood Pressure 139/68 05/09/17 07:07 O2 Sat by Pulse Oximetry (%) 100 05/08/17 21:00 Constitutional: Yes: Calm, Obese Eyes: Yes: WNL HENT: Yes: WNL Neck: Yes: WNL Cardiovascular: Yes: Regular Rate and Rhythm, S1, S2 Respiratory: Yes: Diminished Gastrointestinal: Yes: WNL Extremities: Yes: Other (R ARM CASTED) Edema: Yes Labs: CBC, BMP 05/09/17 05:35 05/09/17 05:35 INR, PTT INR 1.22 (0.82-1.09) H 05/07/17 07:00 Fibrinogen 266.0 mg/dL (238-498) 05/07/17 07:00 Assessment/Plan Problem List - Problems (1) Lung mass Code(s): R91.8 - OTHER NONSPECIFIC ABNORMAL FINDING OF LUNG FIELD (2) Chest pain Code(s): R07.9 - CHEST PAIN, UNSPECIFIED (3) Alcoholic cirrhosis Code(s): K70.30 - ALCOHOLIC CIRRHOSIS OF LIVER WITHOUT ASCITES Qualifiers: Ascites presence: without ascites Qualified Code(s): K70.30 - Alcoholic cirrhosis of liver without ascites (4) COPD (chronic obstructive pulmonary disease) Code(s): J44.9 - CHRONIC OBSTRUCTIVE PULMONARY DISEASE, UNSPECIFIED Qualifiers : COPD type: emphysema Emphysema type: unspecified Qualified Code( s): J43.9 - Emphysema, unspecified (5) HTN (hypertension) Code(s): I10 - ESSENTIAL (PRIMARY) HYPERTENSION Qualifiers: Hypertension type: essential hypertension Qualified Code(s): I10 - Essential (primary) hypertension Assessment/Plan Chest Pain Lung Mass suspicious for malignancy COPD Former Smoker HTN Alcoholic Cirrhosis - CT guided lung biopsy in am - inhaled bronchodilators - O2 to keep SpO2 >90% - further recommendations after biopsy - will need PFTs, PET scan as outpt - DVT prophylaxis DR BELLE
--- NOTE | 2017-05-09 19:57 | PN ---
Teaching Attending Note Name of Resident: Mohan Mccartney ATTENDING PHYSICIAN STATEMENT I saw and evaluated the patient. I reviewed the resident's note and discussed the case with the resident. I agree with the resident's findings and plan as documented. SUBJECTIVE: no fever or chills, still has pain in her R aupper arm . OBJECTIVE: NAD Awake ,and alert , cooperative ., knows her location , year, month, age , . CV: RRR, Lungs : CTAB , decreased breath sounds at bases Ext: LLE 2+ pitting edema. old surgical scars on L foot . 2x2 cm clean ulcer on lateral R ankle DP 2+ b/l RUE in a sling, with bruising of the R shoulder and upper arm ( much imporved compared to previous admission ) . RP 2+ b/l , nl sensation to light touch in hand and nl movement of her fingers . R hand edema ASSESSMENT AND PLAN: 71 y/o lady with h/o Alcoholic Liver cirrhosis , alcoholism, COPD recent fall with comminuted Fx of R humerus who presented with after a fall with R UE pain, and was found to have R humerous Fx . 1- AMS likely due to hepatic encephalopathy. improved after lactulose treatment . ammonia level has improved cont lactulose check MRI of brain due to possible lung cancer 2- R lung mass: suspicion for malignancy for IR bx tomorrow no need for plt transfusion if Plt > 50 K staging w/u : CT abd /P , and MRI of brain Onc f/u 3- PAULA : resolved . Cr back to base line 4- LIver cirrhosis with LE edema , and ascitis on CT scan : cont lasix add aldactone 5- R humeral fx : cont conservative mgt dispo : HLOC
[2017-05-09] MEDS: LATANOPROST 0.005% OPHTH SOLN 2.5ML BOTTLE OU SCH (22:19)
[2017-05-09] MEDS ORDERED: INSULIN (NOVOLOG) ASPART 100 UNITS/ML 10ML VIAL ONE (23:15)
[2017-05-10] MEDS: oxyCODONE HCL 5 MG TABLET PO PRN ×2 (02:06→21:57)
[2017-05-10] MEDS: LACTULOSE 20 GM/30 ML UDC (FOR ORAL USE ONLY) PO SCH ×4 (06:44→22:02)
[2017-05-10] MEDS ORDERED: PT OWN MED DRAWER 7, Y5N ONE ×2 (12:34→17:52)
[2017-05-10] MEDS: CITALOPRAM HYDROBROMIDE 20 MG TABLET (FP) PO SCH (12:36)
[2017-05-10] MEDS: DORZOLAMIDE 2% HCL OPHTHALMIC SOLUTION 10 ML BOTTLE OU SCH ×2 (12:36→21:58)
[2017-05-10] MEDS: SPIRONOLACTONE 25 MG TABLET (FP) PO SCH (12:36)
[2017-05-10] MEDS: METOPROLOL SUCCINATE 25 MG TAB.SR.24H (FP) PO SCH (12:36)
[2017-05-10] MEDS: FUROSEMIDE 40 MG/4 ML INJECTABLE VIAL IVPUSH SCH (12:36)
[2017-05-10] MEDS: amLODIPine BESYLATE 2.5 MG TABLET (FP) PO SCH (12:36)
[2017-05-10] MEDS: LISINOPRIL 10 MG TABLET (FP) PO SCH (12:36)
[2017-05-10] MEDS: NYSTATIN 100000 UNIT/GM TOPICAL OINTMENT 15 GM TUBE TP SCH ×2 (12:37→21:58)
[2017-05-10 13:05] LABS: GLUCOSE,PLEURAL FLUID 109.202; TOTAL PROTEIN,PLEURAL FLUID 1.933
[2017-05-10 13:10] LABS: CHLORIDE PLEURAL FLUID 111
[2017-05-10 14:03] LABS: PLEURAL FLUID COLOR YELLOW; PLEURAL FLUID SOURCE PLEURAL
[2017-05-10 14:04] LABS: PLEURAL FLUID APPEARANCE CLEAR
--- NOTE | 2017-05-10 14:57 | PN ---
Teaching Attending Note Name of Resident: Mohan Mccartney ATTENDING PHYSICIAN STATEMENT I saw and evaluated the patient. I reviewed the resident's note and discussed the case with the resident. I agree with the resident's findings and plan as documented. SUBJECTIVE: no fever or chills. had her Lung Bx tody. has no SOB or cough . has no CP . has pain in her R arm. OBJECTIVE: NAD Awake ,and alert , cooperative. AAox3 CV: RRR, Lungs : CTAB , decreased breath sounds at bases Ext: LLE 2+ pitting edema. old surgical scars on L foot . 2x2 cm clean ulcer on lateral R ankle DP 2+ b/l RUE in a sling, with bruising of the R shoulder and upper arm . RP 2+ b/l , nl sensation to light touch in hand and nl movement of her fingers . R hand edema ASSESSMENT AND PLAN: 71 y/o lady with h/o Alcoholic Liver cirrhosis , alcoholism, COPD recent fall with comminuted Fx of R humerus who presented with after a fall with R UE pain, and was found to have R humerous Fx . 1- AMS likely due to hepatic encephalopathy. improved after lactulose treatment . ammonia level has improved cont lactulose MRI brain pending 2- R lung mass: suspicion for malignancy Bx done today check cxray for any complications CT abd /P w/o contrast with no MEts Onc f/u 3- PAULA : resolved . Cr back to base line 4- LIver cirrhosis with LE edema , and ascitis on CT scan : Cont lasix COnt aldactone 5- R humeral fx : cont conservative mgt dispo : HLOC
[2017-05-10 15:05] LABS: PLEURAL FLUID LYMPHOCYTES 12 %; PLEURAL FLUID NEUTROPHIL 17 %
--- NOTE | 2017-05-10 15:17 | PN ---
Physical Exam: SUBJECTIVE: Patient seen and examined at bedside. No new complaints. No overnight events. She still has arm discomfort but manageable. Denies CP,TEJADA, SOB , abd. pain. or nausea. OBJECTIVE: Vital Signs Period Temp Pulse Resp BP Sys/Mccarty Pulse Ox Last 24 Hr 97.7 F-100.5 F 22-68 14-22 118-144/52-79 98-100 GENERAL: AAO x 3, NAD HEAD: AT/NC. EYES: PERRL, EOMI, sclera anicteric, conjunctiva clear. No ptosis. ENT:moist mucous membranes. NECK: supple, no jvd LUNGS: diminished breath sounds. HEART: RRR ABDOMEN: Soft,obese, nontender, nondistended, normoactive bowel sounds, no guarding, no rebound EXTREMITIES: RUE casted , NVI,2+ pulses, warm, well-perfused, 2+ LE edema. NEUROLOGICAL:Awake and responsive, gait not observed Laboratory Results - last 24 hr 05/10/17 11:30 Pleural Fluid Source Pleural Pleural Color Yellow Pleural Appearance Clear Pleural WBC 174 Pleural RBC 210 Pleural Neutrophils 17 Pleural Lymphocytes 12 Pleural Monocytes 71 Pleural Chloride 111 Pleural Total Protein 1.933 Pleural Albumin 1 Pleural LDH 61 Pleural Glucose 109.202 Pleural Amylase 36.351 Pleural Cholesterol < 50 Pleural Triglycerides 31 Active Medications Generic Name Dose Route Start Last Admin Trade Name Freq PRN Reason Stop Dose Admin Albuterol/Ipratropium 1 amp 05/06/17 08:02 Duoneb - NEB Q4H PRN SHORTNESS OF BREATH Amlodipine Besylate 2.5 mg 05/04/17 10:00 05/10/17 12:36 Norvasc - PO 2.5 mg DAILY JACOB Administration Citalopram Hydrobromide 40 mg 05/04/17 10:00 05/10/17 12:36 Celexa - PO 40 mg DAILY JACOB Administration Dorzolamide HCl 1 drop 05/04/17 10:00 05/10/17 12:36 Trusopt 2% OU 1 drop BID JACOB Administration Furosemide 40 mg 05/09/17 10:00 05/10/17 12:36 Lasix Injection - IVPUSH 40 mg DAILY JACOB Administration Heparin Sodium (Porcine) 5,000 unit 05/03/17 23:30 05/09/17 22:18 Heparin - SQ 5,000 unit TID JACOB Administration Lactulose 20 gm 05/03/17 22:00 05/10/17 14:13 Cephulac (Oral Use) PO Not Given TID JACOB Latanoprost 1 drop 05/04/17 22:00 05/09/17 22:19 Xalatan 0.005% Eye Drops - OU 1 drop HS JACOB Administration Lisinopril 10 mg 05/04/17 10:00 05/10/17 12:36 Prinivil PO 10 mg DAILY JACOB Administration Metoprolol Succinate 25 mg 05/04/17 10:00 05/10/17 12:36 Toprol Xl - PO 25 mg DAILY JACOB Administration Nystatin 1 applic 05/04/17 10:00 05/10/17 12:37 Mycostatin Ointment - TP 1 applic BID JACOB Administration Oxycodone HCl 5 mg 05/03/17 22:43 05/10/17 02:06 Roxicodone - PO 5 mg Q6H PRN Administration PAIN Spironolactone 25 mg 05/10/17 10:00 05/10/17 12:36 Aldactone - PO 25 mg DAILY JACOB Administration ASSESSMENT/PLAN: 71 y/o F w/PMH of anemia, hypertension, alcoholic cirrhosis, COPD, and lymphedema [facility]. Problem List - Problems (1) Lung mass Assessment/Plan: * IR CT guided biopsy showed loculated fluid and analysis shows most likely transudative. * MRI of brain and Ct abdomen were negative for any signs of mets * PFTs and PET scan as outpatient * Oncology consult. (2) Altered mental status Assessment/Plan: * Hepatic encephalopathy improved * Continue Lactulose. * Head CT - no acute intracranial pathology * Repeat labs in AM (3) Closed right humeral fracture Assessment/Plan: * Evalutated by Dr. Fabrice Mace. - continue current management. * No surgical intervention planned * remains casted and immobile * Neurovascularly intact. * Pain control with Oxycodone. (4) Alcoholic cirrhosis Assessment/Plan: * Lower extremity edema improved with daily 40mg IV lasix * Will add spironolactone . (5) COPD (chronic obstructive pulmonary disease) Assessment/Plan: * Continue * Tudorza 1 puff IH BID * Duonebs PRN * supplemental O2 via NC maintain SpO2 >92% * Aspiration precautions. (6) HTN (hypertension) Assessment/Plan: * Amlodipine 2.5 mg po daily * lisinopril 10mg PO daily * Metoprolol 25mg Daily (7) DVT prophylaxis Assessment/Plan: * Heparin 5000 units SQ TID * SCD's bilat. Visit type - Emergency Visit Emergency Visit: Yes ED Registration Date: 05/03/17 Care time: The patient presented to the Emergency Department on the above date and was hospitalized for further evaluation of their emergent condition. - New Patient This patient is new to me today: No - Critical Care Critical Care patient: No
[2017-05-10] MEDS: HEPARIN NA (PORCINE) 5,000 UNITS/ML 1ML VIAL SQ SCH (21:57)
[2017-05-10] MEDS: LATANOPROST 0.005% OPHTH SOLN 2.5ML BOTTLE OU SCH (21:58)
[2017-05-11] MEDS: oxyCODONE HCL 5 MG TABLET PO PRN ×2 (06:00→13:01)
[2017-05-11] MEDS: HEPARIN NA (PORCINE) 5,000 UNITS/ML 1ML VIAL SQ SCH (06:00)
[2017-05-11] MEDS: LACTULOSE 20 GM/30 ML UDC (FOR ORAL USE ONLY) PO SCH ×2 (06:01→13:33)
[2017-05-11 07:47] VITALS: BP 152/79; TEMP 97.7
[2017-05-11 07:49] LABS: MCH 35.2 pg (25.7-33.7); MCHC 32.7 g/dl (32.0-36.0); MEAN CELL VOLUME 107.7 fl (80-96); MEAN PLT VOLUME 9.9 fl (7.5-11.1); PLATELET COUNT 66 K/MM3 (134-434); WHITE BLOOD COUNT 4.1 K/mm3 (4.0-10.0)
[2017-05-11 08:19] LABS: ANION GAP 7 (8-16); CALCIUM 8.6 mg/dL (8.5-10.1); CO2 28 mmol/L (21-32); CREATININE 1.3 mg/dL (0.55-1.02); GLUCOSE,RANDOM 118 mg/dL (74-106)
[2017-05-11] MEDS: SPIRONOLACTONE 25 MG TABLET (FP) PO SCH (10:42)
[2017-05-11] MEDS: NYSTATIN 100000 UNIT/GM TOPICAL OINTMENT 15 GM TUBE TP SCH (10:43)
[2017-05-11] MEDS: FUROSEMIDE 40 MG/4 ML INJECTABLE VIAL IVPUSH SCH (10:43)
[2017-05-11] MEDS: CITALOPRAM HYDROBROMIDE 20 MG TABLET (FP) PO SCH (10:43)
[2017-05-11] MEDS: amLODIPine BESYLATE 2.5 MG TABLET (FP) PO SCH (10:44)
[2017-05-11] MEDS: LISINOPRIL 10 MG TABLET (FP) PO SCH (10:44)
[2017-05-11] MEDS: METOPROLOL SUCCINATE 25 MG TAB.SR.24H (FP) PO SCH (10:44)
[2017-05-11] MEDS: DORZOLAMIDE 2% HCL OPHTHALMIC SOLUTION 10 ML BOTTLE OU SCH (10:45)
--- NOTE | 2017-05-11 11:10 | PN ---
Progress Note (short form) - Note Progress Note: I removed the sugar tong splint on the right arm. minimal pain with PROM shoulder and elbow. I therefore DCed the splint and will place her only in a sling. She is cleared for transfer to the rehab center today. F/U X 1 month.
[2017-05-11] MEDS ORDERED: PT OWN MED DRAWER 7, Y5N ONE (11:32)
--- NOTE | 2017-05-11 12:04 | DS ---
Physical Exam: SUBJECTIVE: Patient seen and examined at bedside. No new complaints. No overnight events. She still has arm discomfort but manageable. Denies CP,TEJADA, SOB , abd. pain. or nausea. OBJECTIVE: Vital Signs Period Temp Pulse Resp BP Sys/Mccarty Pulse Ox Last 24 Hr 97.7 F-98.2 F 63-67 20-22 129-152/53-79 98 PHYSICAL EXAM GENERAL: AAO x 3, NAD HEAD: AT/NC. EYES: PERRL, EOMI, sclera anicteric, conjunctiva clear. No ptosis. ENT:moist mucous membranes. NECK: supple, no jvd LUNGS: diminished breath sounds. HEART: RRR ABDOMEN: Soft,obese, nontender, nondistended, normoactive bowel sounds, no guarding, no rebound EXTREMITIES: RUE casted , NVI,2+ pulses, warm, well-perfused, 2+ LE edema. NEUROLOGICAL:Awake and responsive, gait not observed LABS Laboratory Results - last 24 hr 05/10/17 05/10/17 05/11/17 11:30 17:45 07:20 WBC 4.1 RBC 2.71 L Hgb 9.6 L Hct 29.2 L MCV 107.7 H MCHC 32.7 RDW 15.0 Plt Count 66 L MPV 9.9 Sodium Potassium Chloride Carbon Dioxide Anion Gap BUN Creatinine Random Glucose Calcium LD Total 196 Pleural Fluid Source Pleural Pleural Color Yellow Pleural Appearance Clear Pleural WBC 174 Pleural RBC 210 Pleural Neutrophils 17 Pleural Lymphocytes 12 Pleural Monocytes 71 Pleural Chloride 111 Pleural Total Protein 1.933 Pleural Albumin 1 Pleural LDH 61 Pleural Glucose 109.202 Pleural Amylase 36.351 Pleural Cholesterol < 50 Pleural Triglycerides 31 05/11/17 07:20 WBC RBC Hgb Hct MCV MCHC RDW Plt Count MPV Sodium 140 Potassium 4.0 Chloride 105 Carbon Dioxide 28 Anion Gap 7 L BUN 21 H Creatinine 1.3 H Random Glucose 118 H Calcium 8.6 LD Total Pleural Fluid Source Pleural Color Pleural Appearance Pleural WBC Pleural RBC Pleural Neutrophils Pleural Lymphocytes Pleural Monocytes Pleural Chloride Pleural Total Protein Pleural Albumin Pleural LDH Pleural Glucose Pleural Amylase Pleural Cholesterol Pleural Triglycerides IMAGING: * CT/HEAD CT WITHOUT CONTRAST Dizziness. Rule out bleed. Status post fall.. Impression: Moderate atrophy. No gross evidence of a focal intracranial lesion or hemorrhage is seen. Correlate clinically to determine further evaluation and follow-up. * RAD/CHEST X-RAY PORTABLE* AP . Impression: Abnormal study. Acute right humeral fracture. Soft tissue masslike density right base. Further imaging needed. Reported By: Shaun Berman MD * US/ABDOMEN US - IMPRESSION: Small echogenic liver. Rule out fatty infiltration versus hepatocellular disease. Please correlate with liver enzymes. Multiple small stones and suggestion of a small sludge without sonographic evidence of acute cholecystitis. Small amount of free fluid/ascites in the right upper abdomen. Nonvisualization of the pancreas and abdominal aorta. Limited visualization of the inferior vena cava Reported By: Nicholas Martinez MD * MRI/BRAIN MRI W/O CONTRAST MRI OF THE BRAIN IMPRESSION: Generalized volume loss with multiple foci of a small vessel infarction in the periventricular white matter. There is no mass lesion acute infarction or hemorrhage. To Better assess for metastatic disease , evaluation with contrast would be helpful. Reported By: Mendoza Avitia MD * CT/ABDOMEN PELVIS CT W/O CONTR Impression: Limited study. Findings consistent with cirrhosis, splenomegaly and ascites. Cholelithiasis. No specific evidence of metastatic disease definitively seen. Other findings as above. Clinical correlation advised. Reported By: Shaun Camacho MD HOSPITAL COURSE: 71 y/o F w/PMH of anemia, hypertension, alcoholic cirrhosis, COPD, and lymphedema presents to ER from [facility] rehab admitted for AMS and chest pain.AMS most likely secondary to hepatic encephalopathy given elevated ammonia levels. Patent has questionable PNA and started on IV abx and completed a 7 day course of IV abx.She remained afebrile and leukocytosis resolved. On chest imaging a large mass was noted. For this mass pulmonary was consulted and biopsy performed. IR performed CT guided biopsy which revealed a loculated fluid collection which on analysis was transudative in nature. She will need to have follow up with java lead developer in one to two weeks.CT abdomen reported above and MRI was negative for any intercranial pathology. She was seen by orthopedic surgeon and will continue conservative management as fracture is healing. She will follow up with Dr. Avina in one month. For her alcoholic liver cirrhosis she responded well to IV lasix and aldactone which will be continued at time of discharge. Her breathing remained stable during admission with continuation of her tudoza and duonebs prn. She is instructed to follow up with pulmonary. HTN well controlled with home meds. Diabetes was managed with ADA diet, BGM and ISS ACHS. She is stable at time of discharge to return to SNF. Date of Admission:05/03/17 Date of Discharge: 05/11/17 Minutes to complete discharge: 45 Discharge Summary Reason For Visit: FEVER; ALTERED MENTAL STATUS Current Active Problems Altered mental status (Acute) Chest pain (Acute) Fever (Acute) Lung mass (Acute) Serum ammonia increased (Acute) Condition: Stable - Instructions Diet, Activity, Other Instructions: -You need to follow up with Primary doctor in one week. -Follow up with Dr. Avina in one month for your right arm. -Follow up with Pulmonary in two weeks. -Continue home meds as directed. -Diabetic diet. -Increase activity as tolerated. Disposition: [facility] - Home Medications Comprehensive Discharge Medication List: Ambulatory Orders Citalopram Hydrobromide [Celexa -] 40 mg PO DAILY 04/06/17 Lorazepam 1 mg PO TID 04/06/17 Metoprolol Succinate [Toprol XL -] 25 mg PO DAILY 04/06/17 Zolpidem Tartrate 10 mg PO HS 04/06/17 Oxycodone HCl [Roxicodone -] 5 mg PO Q6H #20 tablet MDD 4 04/11/17 Amlodipine Besylate/Benazepril [Lotrel 2.5-10 mg Capsule] 1 each PO DAILY Ascorbate Calcium [Vitamin C] 500 mg PO DAILY 05/03/17 Docusate Sodium [Colace -] 100 mg PO HS 05/03/17 Dorzolamide HCl [Trusopt 2% -] 1 drop BID 05/03/17 Ferrous Sulfate 325 mg PO BID 05/03/17 Furosemide 20 mg PO DAILY 05/03/17 Heparin - 5,000 unit SQ BID 05/03/17 Ibuprofen [Advil -] 200 mg PO QID PRN 05/03/17 Latanoprost 0.005% Eye Drops [Xalatan 0.005% Eye Drops -] 1 drop OU HS 05/03/17 Nystatin Ointment [Mycostatin Ointment -] 1 applic TP BID 05/03/17 Oxycodone Sr [Oxycontin] 10 mg PO DAILY PRN 05/03/17 Petrolatum,White/Lanolin [Vitamin A & D Ointment] 454 gm TP BID 05/03/17 Polyethylene Glycol 3350 [Miralax 119 gm Btl -] 17 gm PO DAILY 05/03/17 Spironolactone [Aldactone -] 25 mg PO DAILY tablet 05/11/17 Problem List - Problems (1) Lung mass (2) Altered mental status (3) Closed right humeral fracture (4) Alcoholic cirrhosis (5) COPD (chronic obstructive pulmonary disease) (6) HTN (hypertension) (7) DVT prophylaxis This patient is new to me today: No Emergency Visit: Yes ED Registration Date: 05/03/17 Care time: The patient presented to the Emergency Department on the above date and was hospitalized for further evaluation of their emergent condition. Critical Care patient: No - Discharge Referral Referred to [facility] Med P.C.: No
[2017-05-11 12:12] VITALS: PULSE 65
--- NOTE | 2017-05-11 12:57 | PN ---
Teaching Attending Note Name of Resident: Mohan Mccartney ATTENDING PHYSICIAN STATEMENT I saw and evaluated the patient. I reviewed the resident's note and discussed the case with the resident. I agree with the resident's findings and plan as documented. SUBJECTIVE: Patient is comfortable with no acute distress. No fever or chills, no shortness of breath. OBJECTIVE: Vital Signs Temperature 97.7 F 05/11/17 06:00 Pulse Rate 65 05/11/17 12:12 Respiratory Rate 20 05/11/17 06:00 Blood Pressure 152/79 05/11/17 06:00 O2 Sat by Pulse Oximetry (%) 99 05/11/17 12:12 CBCD WBC 4.1 K/mm3 (4.0-10.0) 05/11/17 07:20 RBC 2.71 M/mm3 (3.60-5.2) L 05/11/17 07:20 Hgb 9.6 GM/dL (10.7-15.3) L 05/11/17 07:20 Hct 29.2 % (32.4-45.2) L 05/11/17 07:20 MCV 107.7 fl (80-96) H 05/11/17 07:20 MCHC 32.7 g/dl (32.0-36.0) 05/11/17 07:20 RDW 15.0 % (11.6-15.6) 05/11/17 07:20 Plt Count 66 K/MM3 (134-434) L 05/11/17 07:20 MPV 9.9 fl (7.5-11.1) 05/11/17 07:20 CMP Sodium 140 mmol/L (136-145) 05/11/17 07:20 Potassium 4.0 mmol/L (3.5-5.1) 05/11/17 07:20 Chloride 105 mmol/L (98-107) 05/11/17 07:20 Carbon Dioxide 28 mmol/L (21-32) 05/11/17 07:20 Anion Gap 7 (8-16) L 05/11/17 07:20 BUN 21 mg/dL (7-18) H 05/11/17 07:20 Creatinine 1.3 mg/dL (0.55-1.02) H 05/11/17 07:20 Creat Clearance w eGFR 37.28 (>60) 05/09/17 05:35 Random Glucose 118 mg/dL (74-106) H 05/11/17 07:20 Calcium 8.6 mg/dL (8.5-10.1) 05/11/17 07:20 Total Bilirubin 0.7 mg/dL (0.2-1.0) D 05/09/17 05:35 AST 30 U/L (15-37) 05/09/17 05:35 ALT 17 U/L (12-78) 05/09/17 05:35 Alkaline Phosphatase 93 U/L (45-117) 05/09/17 05:35 Total Protein 6.0 g/dl (6.4-8.2) L 05/09/17 05:35 Albumin 2.5 g/dl (3.4-5.0) L 05/09/17 05:35 CARDIAC ENZYMES Creatine Kinase 82 IU/L (26-192) 05/03/17 13:06 Troponin I < 0.02 ng/ml (0.00-0.05) 05/04/17 06:34 Current Medications Generic Name Dose Route Start Last Admin Trade Name Freq PRN Reason Stop Dose Admin Albuterol/Ipratropium 1 amp 05/06/17 08:02 Duoneb - NEB Q4H PRN SHORTNESS OF BREATH Amlodipine Besylate 2.5 mg 05/04/17 10:00 05/11/17 10:44 Norvasc - PO 2.5 mg DAILY JACOB Administration Citalopram Hydrobromide 40 mg 05/04/17 10:00 05/11/17 10:43 Celexa - PO 40 mg DAILY JACOB Administration Dorzolamide HCl 1 drop 05/04/17 10:00 05/11/17 10:45 Trusopt 2% OU 1 drop BID JACOB Administration Furosemide 40 mg 05/09/17 10:00 05/11/17 10:43 Lasix Injection - IVPUSH 40 mg DAILY JACOB Administration Heparin Sodium (Porcine) 5,000 unit 05/03/17 23:30 05/11/17 06:00 Heparin - SQ 5,000 unit TID JACOB Administration Lactulose 20 gm 05/03/17 22:00 05/11/17 06:01 Cephulac (Oral Use) PO Not Given TID JACOB Latanoprost 1 drop 05/04/17 22:00 05/10/17 21:58 Xalatan 0.005% Eye Drops - OU 1 drop HS JACOB Administration Lisinopril 10 mg 05/04/17 10:00 05/11/17 10:44 Prinivil PO 10 mg DAILY JACOB Administration Metoprolol Succinate 25 mg 05/04/17 10:00 05/11/17 10:44 Toprol Xl - PO 25 mg DAILY JACOB Administration Nystatin 1 applic 05/04/17 10:00 05/11/17 10:43 Mycostatin Ointment - TP 1 applic BID JACOB Administration Oxycodone HCl 5 mg 05/03/17 22:43 05/11/17 06:00 Roxicodone - PO 5 mg Q6H PRN Administration PAIN Spironolactone 25 mg 05/10/17 10:00 05/11/17 10:42 Aldactone - PO 25 mg DAILY JACOB Administration Home Medications Medication Instructions Recorded Citalopram Hydrobromide [Celexa -] 40 mg PO DAILY 04/06/17 Lorazepam 1 mg PO TID 04/06/17 Metoprolol Succinate [Toprol XL -] 25 mg PO DAILY 04/06/17 Zolpidem Tartrate 10 mg PO HS 04/06/17 Oxycodone HCl [Roxicodone -] 5 mg PO Q6H #20 tablet MDD 4 04/11/17 Amlodipine Besylate/Benazepril 1 each PO DAILY 05/03/17 [Lotrel 2.5-10 mg Capsule] Ascorbate Calcium [Vitamin C] 500 mg PO DAILY 05/03/17 Docusate Sodium [Colace -] 100 mg PO HS 05/03/17 Dorzolamide HCl [Trusopt 2% -] 1 drop BID 05/03/17 Ferrous Sulfate 325 mg PO BID 05/03/17 Furosemide 20 mg PO DAILY 05/03/17 Heparin - 5,000 unit SQ BID 05/03/17 Ibuprofen [Advil -] 200 mg PO QID PRN 05/03/17 Latanoprost 0.005% Eye Drops 1 drop OU HS 05/03/17 [Xalatan 0.005% Eye Drops -] Nystatin Ointment [Mycostatin 1 applic TP BID 05/03/17 Ointment -] Oxycodone Sr [Oxycontin] 10 mg PO DAILY PRN 05/03/17 Petrolatum,White/Lanolin [Vitamin 454 gm TP BID 05/03/17 A & D Ointment] Polyethylene Glycol 3350 [Miralax 17 gm PO DAILY 05/03/17 119 gm Btl -] Spironolactone [Aldactone -] 25 mg PO DAILY tablet 05/11/17 PE: per resident's note Extremity: Right upper extremity positive for a sling ASSESSMENT AND PLAN: 71 y/o lady with h/o Alcoholic Liver cirrhosis , alcoholism, COPD recent fall with comminuted Fx of R humerus who presented after a fall with R UE pain, and was found to have R humerous Fx . # Acute Right humeral fx : seen by Dr. Barajas and the sling was adjusted and patient is getting discharged to rehab. # s/p acute AMS due to hepatic encephalopathy due to having Liver cirrhosis on lactulose treatment, improving . MRI of brain is negative, no mass lesion. Laboratory Tests 05/03/17 05/03/17 05/04/17 13:06 18:04 06:34 Creatinine 1.8 H D 1.6 H Ammonia 72.34 H 05/05/17 05/05/17 05/06/17 06:45 06:45 05:35 Creatinine 1.3 H 1.3 H Ammonia 26.5 05/06/17 05/07/17 05/08/17 05:35 07:00 06:25 Creatinine 1.2 H 1.3 H Ammonia 12.94 05/09/17 05/11/17 05:35 07:20 Creatinine 1.4 H 1.3 H Ammonia # s/p Right lung mass: s/p CT guided biopsy which showed loculated fluid ; transudative in nature. MRI of brain negative for any mass CT abd/pelvis negative for any signs of mets. PFTs and PET scan as outpatient. Oncology consult appreciated. # ARF: resolved . Cr back to base line 1.8--->1.3 today # LIver cirrhosis with LE edema , and ascitis on CT scan : on lasix and aldactone continue # Acute thrombocytopenia due to Liver Cirrhosis with worsening today 93k-->66K , will held the heparin sq since thrombocytopenia is getting worse. DvT px: Heparin , will hold heparin today since patient's thrombocytopenia is getting worse ; 93K started with ,today is 66K. Patient needs Physical therapy and ambulation.
--- NOTE | 2017-05-12 16:50 | PATH ---
Cytology Non-Gynecological Report Patient Name: SILVIA BARBOSA [facility]. Rec. #: [id number] /Age/Gender: 1945 (Age: 71) / F Account: [id number] Location: [address] [place] [address]/[facility] Taken: 05/10/2017 Received: 05/11/2017 Reported: 05/12/2017 Physicians: Rigo Justin M.D. Specimen(s) Received PLEURAL FLUID IN FORMALIN Clinical History Right lung mass/fluid collection, r/o malignancy Final Diagnosis LUNG, RIGHT, CT GUIDED FLUID ASPIRATION: SATISFACTORY FOR EVALUATION. NO MALIGNANT CELLS IDENTIFIED. PREDOMINANTLY MIXED INFLAMMATORY CELLS AND PROTEINACEOUS DEBRIS. Electronically Signed Rito Martinez M.D. Gross Description Received is 20 cc of yellow fluid in formalin. One cytofunnel slide is made
--- NOTE | 2017-05-12 16:51 | PATH ---
Cytology Non-Gynecological Report Patient Name: SILVIA BARBOSA [facility]. Rec. #: [id number] /Age/Gender: 1945 (Age: 71) / F Account: [id number] Location: [address] [place] [address]/[facility] Taken: 05/10/2017 Received: 05/11/2017 Reported: 05/12/2017 Physicians: Rigo Justin M.D. Specimen(s) Received PLEURAL FLUID Clinical History Right loculated pleural fluid Final Diagnosis PLEURAL FLUID, RIGHT, THORACENTESIS: SATISFACTORY FOR EVALUATION. NO MALIGNANT CELLS IDENTIFIED. MESOTHELIAL CELLS, HISTIOCYTES AND MIXED INFLAMMATORY CELLS. Electronically Signed Rito Martinez M.D. Gross Description Received is 50 cc of yellow fluid in 50% alcohol. One cytofunnel slide and one cell block are made.
== END 2017-05-11 16:02 | DRG 441 ==
LOC: JER 12:49 → JERBED 18:31 → J5S 05-04 17:55
PROVIDERS: ADMIT Internal Medicine; ATTEND Internal Medicine
PROC: 0B9K3ZX Drainage of Right Lung, Percutaneous Approach, Diagnostic (ICD-10-PCS; principal; 2017-05-10)
PROC: 0W993ZX Drainage of Right Pleural Cavity, Percutaneous Approach, Diagnostic (ICD-10-PCS; 2017-05-10)
DX: K72.90 Hepatic failure, unspecified without coma (principal); J18.9 Pneumonia, unspecified organism; N39.0 Urinary tract infection, site not specified; N17.9 Acute kidney failure, unspecified; D61.818 Other pancytopenia; J98.11 Atelectasis; Z68.41 Body mass index [BMI] 40.0-44.9, adult; D53.9 Nutritional anemia, unspecified; I12.9 Hypertensive chronic kidney disease with stage 1 through stage 4 chronic kidney disease, or unspecified chronic kidney disease; N18.9 Chronic kidney disease, unspecified; K59.00 Constipation, unspecified; R91.8 Other nonspecific abnormal finding of lung field; D72.829 Elevated white blood cell count, unspecified; R41.82 Altered mental status, unspecified; J44.9 Chronic obstructive pulmonary disease, unspecified; K70.31 Alcoholic cirrhosis of liver with ascites; R07.9 Chest pain, unspecified; D69.6 Thrombocytopenia, unspecified; Z87.891 Personal history of nicotine dependence; K80.20 Calculus of gallbladder without cholecystitis without obstruction; E66.9 Obesity, unspecified
CPT/HCPCS: 32405; 36415; 70450-TC; 70551-TC; 71010-TC; 71250-TC; 73060-TC-RT; 74176-TC; 77012-TC; 80048; 80053; 80307; 81003; 81015; 82042; 82140; 82150; 82438; 82550; 82607; 82746; 82945; 83605; 83615; 83735; 83880; 84157; 84311; 84443; 84478; 84484; 85025; 85027; 85384; 85610; 85730; 87040; 87070; 87075; 87086; 87102; 87116; 87205; 87206; 87210; 87899; 88108; 88305-TC; 89051; 93005; 93010; 93306-TC; 94010; 97162-GP; 99285-25; J1644; Q9967